=== PATIENT | female | born 1955 | race Hispanic/Latino ===

== ENCOUNTER 2019-05-26 18:31 | Emergency (ER) | payer OTHER ==
--- OUTSIDE RECORDS SUMMARY | 2019-05-26 18:33 | XMS REPORT ---
:1955 Author Organization eClinicalWorks Care Team Providers Name Role Phone Stephon Morrison Provider Role Unavailable Allergies No Known Allergies Problems Problem Type Condition Code Onset Dates Condition Status Problem Left ankle swelling M25.472 Active Problem High cholesterol E78.00 Active Problem Swelling R60.9 Active Problem Hypertension, unspecified type I10 Active Problem Acute left ankle pain M25.572 Active Problem Hyperlipidemia, unspecified E78.5 Active hyperlipidemia type Problem Left foot pain M79.672 Active Problem Paresthesias R20.2 Active Problem Charcot foot due to diabetes E11.610 Active mellitus Problem Abnormal vision of both eyes H53.9 Active Problem Diabetes E11.9 Active Problem Swelling of left foot M79.89 Active Problem Uncontrolled type 2 diabetes E11.65 Active mellitus with hyperglycemia Medications No Known Medications Results No Known Results Summary Purpose eClinicalWorks Submission
--- OUTSIDE RECORDS SUMMARY | 2019-05-26 18:33 | XMS REPORT ---
:1955 Author Organization e[employer]Works Care Team Providers Name Role Phone Carmen Gallegos Provider Role Unavailable Allergies No Known Allergies Problems Problem Type Condition Code Onset Dates Condition Status Problem Swelling R60.9 Active Problem Diabetes E11.9 Active Problem High cholesterol E78.00 Active Problem Hypertension, unspecified type I10 Active Problem Acute left ankle pain M25.572 Active Problem Hyperlipidemia, unspecified E78.5 Active hyperlipidemia type Problem Left ankle swelling M25.472 Active Problem Charcot foot due to diabetes E11.610 Active mellitus Problem Left foot pain M79.672 Active Problem Osteoporosis without current M81.0 Active pathological fracture, unspecified osteoporosis type Problem Uncontrolled type 2 diabetes E11.65 Active mellitus with hyperglycemia Problem Abnormal vision of both eyes H53.9 Active Problem Paresthesias R20.2 Active Problem Swelling of left foot M79.89 Active Medications No Known Medications Results No Known Results Summary Purpose eClinicalWorks Submission
--- OUTSIDE RECORDS SUMMARY | 2019-05-26 18:33 | XMS REPORT ---
:1955 Author Organization eClinicalWorks Care Team Providers Name Role Phone Carmen Gallegos Provider Role Unavailable Allergies, Adverse Reactions, Alerts Substance Reaction Event Type N.K.D.A. Info Not Available Non Drug Allergy Problems Problem Type Condition Code Onset Dates Condition Status Problem Swelling R60.9 Active Problem Diabetes E11.9 Active Problem High cholesterol E78.00 Active Problem Charcot foot due to diabetes E11.610 Active mellitus Problem Left foot pain M79.672 Active Problem Osteoporosis without current M81.0 Active pathological fracture, unspecified osteoporosis type Problem Uncontrolled type 2 diabetes E11.65 Active mellitus with hyperglycemia Problem Abnormal vision of both eyes H53.9 Active Problem Paresthesias R20.2 Active Problem Swelling of left foot M79.89 Active Problem Hypertension, unspecified type I10 Active Problem Acute left ankle pain M25.572 Active Assessment Osteoporosis without current M81.0 Active pathological fracture, unspecified osteoporosis type Problem Hyperlipidemia, unspecified E78.5 Active hyperlipidemia type Problem Left ankle swelling M25.472 Active Medications Medication Code Code Instructions Start End Date Status Dosage System Date Novolin R [facility] 77160344841 100 UNIT/ML Nov 28, Active as Subcutaneous 2018 directed units with each meal (three times daily) BromSite [facility] [address]-58 Active not defined Insulin ND 0 32G x 5/32 1ml Nov 28Feb 20, Active Syringe Subcutaneous 2018 2019 DIRECTED Use three times daily with Novolin R as directed Pen Landis [facility] 91829102837 32G X 5 MM Nov 28, Active as Subcutaneous 2018 directed Use as directed with Lantus Solostar Pen Calcium + D [facility] 76[address]209 Active not defined Zinc [facility] [address] Active not defined [place] 3 [facility] [address] Active not defined Vitamin C [facility] [address]-61 Active not defined FreeStyle Lite [facility] 25909322481 - In Vitro Feb 01, Active as Test testing bs once 2019 directed daily Alendronate [facility] 93176878637 70 MG Orally Feb 06May Active 1 tablet Sodium Once per week 2018 30 minutes for bones before the first food, beverage or medicine of the day with plain water Blood Glucose NDC 0 as directed Nov 28, Active as Test Strip Test BS three 2018 directed times daily (DISPENSE BLOOD GLUCOSE TEST STRIPS OF RECORD) Lancets [facility] 00560826666 - as directed Nov 28, Active as Test BS 2018 directed times daily (dispense lancets of record) Lantus [facility] 28107040601 100 UNIT/ML Active as SoloStar Subcutaneous 30 directed units in evening Vitamin A NDC 0 Active not defined Durezol [facility] [address]-35 Active not defined Gentamicin ND 0 Active not defined Meloxicam [facility] 93174163585 7.5 MG Orally Nov 28, Apr 04, Active 1 tablet Once a day 2018 2019 as needed for pain Results No Known Results Summary Purpose eClinicalWorks Submission
--- OUTSIDE RECORDS SUMMARY | 2019-05-26 18:33 | XMS REPORT ---
[...] diabetes E11.65 Active mellitus with hyperglycemia Medications Medication Code Code Instructions Start End Status Dosage System Date Date Kashif Marie [facility] [id number] - In Vitro Feb 01, Active as directed Test testing bs once 2019 daily Results No Known Results Summary Purpose eClinicalWorks Submission
--- OUTSIDE RECORDS SUMMARY | 2019-05-26 18:34 | XMS REPORT ---
:1955 Author Organization eClinicalWorks Care Team Providers Name Role Phone Carmen Gallegos Provider Role Unavailable Allergies, Adverse Reactions, Alerts Substance Reaction Event Type N.K.D.A. Info Not Available Non Drug Allergy Problems Problem Type Condition Code Onset Dates Condition Status Problem High cholesterol E78.00 Active Problem Hyperlipidemia, unspecified E78.5 Active hyperlipidemia type Problem Acute left ankle pain M25.572 Active Problem Charcot foot due to diabetes E11.610 Active mellitus Assessment Osteoporosis without current M81.0 Active pathological fracture, unspecified osteoporosis type Problem Paresthesias R20.2 Active Problem Osteoporosis without current M81.0 Active pathological fracture, unspecified osteoporosis type Problem Mixed hyperlipidemia E78.2 Active Problem Anemia, unspecified type D64.9 Active Problem Left foot pain M79.672 Active Problem Swelling of left foot M79.89 Active Assessment Uncontrolled type 2 diabetes E11.65 Active mellitus with hyperglycemia Assessment Mixed hyperlipidemia E78.2 Active Assessment Anemia, unspecified type D64.9 Active Problem Diabetes E11.9 Active Problem Abnormal vision of both eyes H53.9 Active Problem Hypertension, unspecified type I10 Active Problem Uncontrolled type 2 diabetes E11.65 Active mellitus with hyperglycemia Problem Left ankle swelling M25.472 Active Problem Swelling R60.9 Active Medications Medication Code Code Instructions Start End Status Dosage System Date Date Vitamin C [facility] [address]-88 Active not defined Lancets [facility] 86371149817 - as directed Nov 28, Active as directed Test BS three 2018 (dispense times daily lancets of record) Crestor [facility] 53579958344 10 MG Orally Feb 27, Active 1 tablet Once a day in 2018 evening for high cholesterol Gentamicin NDC 0 Active not defined Insulin NDC 0 32G x 5/32 1ml Nov 28, Feb 20, Active DIRECTED Syringe Subcutaneous 2018 2019 Use three times daily with Novolin R as directed Alendronate ND 05350299427 70 MG Orally Feb 06, Nov 23, Active 1 tablet 30 Sodium Once per week 2018 2019 minutes for bones before the first food, beverage or medicine of the day with plain water Blood Glucose NDC 0 as directed Nov 28, Active as directed Test Strip Test BS three 2018 (DISPENSE times daily BLOOD GLUCOSE TEST STRIPS OF RECORD) Lantus [facility] 87741141424 100 UNIT/ML Active as directed SoloStar Subcutaneous 30 units in evening FreeStyle Lite [facility] 72877072230 - In Vitro Feb 01, Active as directed Test testing bs once 2019 daily BromSite [facility] [address]-39 Active not defined Vitamin A ND 0 Active not defined Pen [place] [facility] 69614165831 32G X 5 MM Nov 28, Active as directed Subcutaneous 2019 Use as directed with Lantus Solostar Pen Meloxicam [facility] 90219594023 7.5 MG Orally Nov 28, Apr 04, Active 1 tablet as Once a day 2018 2019 needed for pain Durezol [facility] [address]-47 Active not defined Novolin R [facility] 78845058655 100 UNIT/ML Nov 28, Active as directed Subcutaneous 12 2018 units with each meal (three times daily) Calcium + D [facility] [address] Active not defined [place] 3 [facility] [address] Active not defined Zinc [facility] [address] Active not defined Results No Known Results Summary Purpose eClinicalWorks Submission
--- OUTSIDE RECORDS SUMMARY | 2019-05-26 18:34 | XMS REPORT ---
:1955 Author Organization eClinicalWorks Care Team Providers Name Role Phone Stephon Morrison Provider Role Unavailable Allergies, Adverse Reactions, Alerts Substance Reaction Event Type N.K.D.A. Info Not Available Non Drug Allergy Problems Problem Type Condition Code Onset Dates Condition Status Problem High cholesterol E78.00 Active Problem Hyperlipidemia, unspecified E78.5 Active hyperlipidemia type Problem Acute left ankle pain M25.572 Active Problem Charcot foot due to diabetes E11.610 Active mellitus Problem Paresthesias R20.2 Active Problem Osteoporosis without current M81.0 Active pathological fracture, unspecified osteoporosis type Problem Mixed hyperlipidemia E78.2 Active Problem Anemia, unspecified type D64.9 Active Problem Left foot pain M79.672 Active Problem Swelling of left foot M79.89 Active Assessment Pain in joint, foot, left M25.572 Active Assessment Charcot foot due to diabetes E11.610 Active mellitus Problem Diabetes E11.9 Active Problem Abnormal vision of both eyes H53.9 Active Problem Hypertension, unspecified type I10 Active Problem Uncontrolled type 2 diabetes E11.65 Active mellitus with hyperglycemia Problem Left ankle swelling M25.472 Active Problem Swelling R60.9 Active Medications Medication Code Code Instructions Start End Status Dosage System Date Date Alendronate [facility] 68024663600 70 MG Orally Feb 06, Nov 23, Active 1 tablet 30 Sodium Once per week 2018 2019 minutes for bones before the first food, beverage or medicine of the day with plain water Calcium + D [facility] [address] Active not defined [place] 3 [facility] [address] Active not defined Gentamicin [facility] [address]-28 Active not defined Sulfate Vitamin C [facility] [address]-34 Active not defined Meloxicam ND 43000962027 7.5 MG Orally Nov 28, Apr 04, Active 1 tablet as Once a day 2018 2019 needed for pain BromSite [facility] [address]-07 Active not defined Lancets [facility] 13447169598 - as directed Nov 28, Active as directed Test BS three 2018 (dispense times daily lancets of record) Lantus [facility] 79422512237 100 UNIT/ML Active as directed SoloStar Subcutaneous 30 units in evening Novolin R [facility] 84666169944 100 UNIT/ML Nov 28, Active as directed Subcutaneous 12 2018 units with each meal (three times daily) Zinc [facility] [address]91-[address] Active not defined Vitamin A NDC 0 Active not defined Pen Arma [facility] 91000728498 32G X 5 MM Nov 28, Active as directed Subcutaneous 2018 Use as directed with Lantus Solostar Pen Crestor [facility] 91919242104 10 MG Orally Feb 27, Active 1 tablet Once a day in 2019 evening for high cholesterol Durezol [facility] [address]-74 Active not defined FreeStyle Lite [facility] 36847937080 - In Vitro Feb 01, Active as directed Test testing bs once 2019 daily Insulin NDC 0 32G x 5/32 1ml Nov 28, Feb 20, Active DIRECTED Syringe Subcutaneous 2018 2019 Use three times daily with Novolin R as directed Blood Glucose NDC 0 as directed Nov 28, Active as directed Test Strip Test BS three 2018 (DISPENSE times daily BLOOD GLUCOSE TEST STRIPS OF RECORD) Gentamicin NDC 0 Active not defined Results No Known Results Summary Purpose eClinicalWorks Submission
[2019-05-26] MEDS ORDERED: NA CHLORIDE 0.9% 1,000 ML ONE (19:12)
[2019-05-26] MEDS ORDERED: ONDANSETRON 4 MG/2 ML VIAL ONE (19:12)
[2019-05-26] MEDS ORDERED: CIPROFLOXACIN 400mg IV 400 MG/200 ML BAG IV ONE (19:12)
[2019-05-26] MEDS ORDERED: METRONIDAZOLE 500mg IVPB 500 MG/100 ML BAG IV ONE (19:12)
[2019-05-26] MEDS ORDERED: FAMOTIDINE 20 MG/2 ML VIAL IV ONE (19:12)
--- NOTE | 2019-05-26 19:24 | RAD REPORT ---
EXAM DESCRIPTION: RAD - Chest Single View - 05/26/2019 7:16 pm CLINICAL HISTORY: ABDOMINAL DISTENTION Chest pain. COMPARISON: CHEST SINGLE VIEW dated 10/04/2014; CHEST SINGLE VIEW dated 06/24/2013; CHEST SINGLE VIEW dated 06/04/2012 FINDINGS: Portable technique limits examination quality. The lungs are grossly clear. The heart is normal in size. No displaced fractures. IMPRESSION: No acute intrathoracic process suspected.
[2019-05-26 19:26] LABS: Urine Blood TRACE (NEG); Urine Glucose NEGATIVE (NEG); Urine Protein 3+ (NEG); Urine Specific Gravity >1.030 (1.005-1.030)
[2019-05-26 19:35] LABS: Absolute Lymphocytes (CBC) 0.8 K/uL (0.7-4.9); Basophils % 0.2 % (0-1.3); Hematocrit 37.9 % (36.0-45.0); Lymphocytes % 8.8 % (15.3-44.8); MPV 9.1 fL (7.6-11.3); RBC Red Blood Cell Count 4.03 M/uL (3.86-4.86)
[2019-05-26 19:37] LABS: Protime INR 0.96
[2019-05-26 19:55] LABS: ALT/SGPT 57 U/L (12-78); AST/SGOT 46 U/L (15-37); Albumin 3.5 g/dL (3.4-5.0); Alkaline Phosphatase 98 U/L (45-117); BUN Blood Urea Nitrogen 35 mg/dL (7-18); Bicarbonate 27 mmol/L (21-32); Bilirubin Direct 0.1 mg/dL (0-0.2); Bilirubin Total 0.5 mg/dL (0.2-1.0); Glucose Level 195 mg/dL (74-106); Lipase 116 U/L (73-393); NT PRO-BNP 146 pg/mL (<125); Potassium 3.9 mmol/L (3.5-5.1); Protein, Total 8.2 g/dL (6.4-8.2); Sodium Level 138 mmol/L (136-145); Troponin (Emerg Dept Use Only) < 0.02 ng/mL (0.0-0.045)
[2019-05-26 20:03] LABS: Blood Morphology Comment NOT SEEN (NOT SEEN); Platelet Estimate ADEQ; White Blood Cell Scan OK
--- NOTE | 2019-05-26 20:36 | RAD REPORT ---
EXAM DESCRIPTION: CTAbdomen Pelvis W Contrast - 05/26/2019 8:21 pm CLINICAL HISTORY: Abdominal pain. Abd pain;Pain COMPARISON: CT ABD PELVIS W CONTRAST dated 04/28/2013 TECHNIQUE: Biphasic CT imaging of the abdomen and pelvis was performed with 100 ml non-ionic IV cont rast. All CT scans are performed using dose optimization technique as appropriate and may include automated exposure control or mA/KV adjustment according to patient size. FINDINGS: The lung bases are clear.Cholecystectomy clips. The liver, spleen, pancreas, left adrenal gland and kidneys are within normal limits. 18 mm right adr enal mass is present, nonspecific but likely an adenoma. No bowel obstruction, free air, free fluid or abscess. Aortic atherosclerosis. The appendix is not id entified as a discrete structure, however, no secondary findings of appendicitis are identified. No evidence of significant lymphadenopathy. No suspicious bony findings. IMPRESSION: No acute intra-abdominal or pelvic finding.
--- NOTE | 2019-05-26 20:44 | ER ---
Nurse's Notes [facility] Name: Edda Mei Age: 63 yrs Sex: Female : 1955 Arrival Date: 05/26/2019 Time: 18:33 Bed 5 Private MD: Diagnosis: Gastroenteritis Presentation: 18:42 Chief complaint: Spouse and/or significant other states: vomiting and diarrhea all day iw today, also has upper abd pain and headache. Coronavirus screen: The patient has NOT traveled to [place] in the past 14 days. Proceed with normal triage procedures. Ebola Screen: Patient negative for fever greater than or equal to 101.5 degrees Fahrenheit, and additional compatible Ebola Virus Disease symptoms Patient denies exposure to infectious person. Patient denies travel to an Ebola-affected area in the 21 days before illness onset. No symptoms or risks identified at this time. Initial Sepsis Screen: Does the patient meet any 2 criteria? No. Patient's initial sepsis screen is negative. Does the patient have a suspected source of infection? No. Patient's initial sepsis screen is negative. Risk Assessment: Do you want to hurt yourself or someone else? Patient reports no desire to harm self or others. 18:42 Method Of Arrival: Ambulatory iw 18:42 Acuity: BIJU 3 iw 21:00 Onset of symptoms was April 2019. mg2 Historical: - Allergies: 18:43 No Known Allergies; iw - Home Meds: 18:43 Novolin N Sub-Q 40 unit daily [Active]; Novolin R Sub-Q 10 unit daily [Active]; iw - PMHx: 18:43 Diabetes - IDDM; iw - PSHx: 18:43 left foot; Cholecystectomy; iw - Immunization history:: Adult Immunizations not up to date. - Social history:: Smoking status: Patient denies any tobacco usage or history of. Screenin:25 Abuse screen: Denies threats or abuse. Denies injuries from another. Nutritional mg2 screening: No deficits noted. Tuberculosis screening: No symptoms or risk factors identified. Fall Risk IV access (20 points). Assessment: 19:24 General: Appears in no apparent distress. comfortable, Behavior is calm, cooperative. mg2 Pain: Complains of pain in abdomen. Neuro: Level of Consciousness is awake, alert, obeys commands, Oriented to person, place, time, situation. Cardiovascular: Capillary refill < 3 seconds Patient's skin is warm and dry. Respiratory: Airway is patent Respiratory effort is even, unlabored, Respiratory pattern is regular, symmetrical. GI: Abdomen is round Reports lower abdominal pain, upper abdominal pain, diarrhea, vomiting. : No signs and/or symptoms were reported regarding the genitourinary system. EENT: No signs and/or symptoms were reported regarding the EENT system. Derm: Skin is intact, is healthy with good turgor, Skin is pink, warm \T\ dry. normal. Musculoskeletal: Circulation, motion, and sensation intact. Capillary refill < 3 seconds. 20:26 Reassessment: patient in ct scan now. mg2 20:44 Reassessment: Patient appears in no apparent distress at this time. Patient and/or mg2 family updated on plan of care and expected duration. Pain level reassessed. Patient is alert, oriented x 3, equal unlabored respirations, skin warm/dry/pink. patient for dc after completing iv antibiotic. 21:46 Reassessment: Patient denies pain at this time. Patient states feeling better. mg2 Vital Signs: 18:42 BP 130 / 70; Pulse 91; Resp 16; Temp 98.4; Pulse Ox 96% on R/A; Weight 81.65 kg; Height iw 5 ft. 4 in. (162.56 cm); 20:46 Pulse 95; Resp 18; Pulse Ox 98% on R/A; mg2 20:46 BP 136 / 70; mg2 21:46 BP 157 / 79; Pulse 90; Resp 18; Temp 98; Pulse Ox 100% on R/A; mg2 18:42 Body Mass Index 30.90 (81.65 kg, 162.56 cm) iw ED Course: 18:33 Patient arrived in ED. cl3 18:43 Triage completed. iw 18:43 Arm band placed on. iw 18:44 Joe Sprague MD is Attending Physician. radha 18:59 Radiology exam delayed due to lab results not completed at this time. (BUN/Creatinine). bq 19:03 Carlos Bush, RN is Primary Nurse. mg2 19:13 XRAY Chest (1 view) In Process Unspecified. EDMS 19:24 No provider procedures requiring assistance completed. Inserted saline lock: 20 gauge mg2 in right antecubital area, using aseptic technique. Blood collected. 19:25 Patient has correct armband on for positive identification. personnel monitor on. Pulse mg2 ox on. NIBP on. Door closed. Warm blanket given. 19:42 Jese Cameron PA is PHCP. bushra 20:21 CT Abd/Pelvis - IV Contrast Only In Process Unspecified. EDMS 20:21 CT completed. Patient tolerated procedure well. Patient moved back from CT. bq 21:46 IV discontinued, intact, bleeding controlled, No redness/swelling at site. Pressure mg2 dressing applied. Administered Medications: 19:23 Drug: NS 0.9% 1000 ml Route: IV; Rate: 1 bolus; Site: right antecubital; mg2 21:38 Follow up: Response: No adverse reaction; IV Status: Completed infusion; IV Intake: mg2 1000ml 19:23 Drug: Pepcid 20 mg Route: IVP; Site: right antecubital; mg2 20:45 Follow up: Response: No adverse reaction mg2 19:23 Drug: Zofran (Ondansetron) 4 mg Route: IVP; Site: right antecubital; mg2 20:45 Follow up: Response: No adverse reaction mg2 19:24 Drug: Flagyl 500 mg Volume: 100 ml; Route: IVPB; Rate: 200 ml/hr; Infused Over: 30 mg2 mins; Site: right antecubital; 20:45 Follow up: IV Status: Completed infusion mg2 20:40 Drug: Cipro 400 mg Volume: 200 ml; Route: IVPB; Infused Over: 60 mins; Site: right mg2 antecubital; 21:38 Follow up: Response: No adverse reaction; IV Status: Completed infusion mg2 20:56 Drug: Tylenol 1000 mg Route: PO; mg2 20:59 Follow up: Response: No adverse reaction; Medication administered at discharge. mg2 Intake: 21:38 IV: 1000ml; Total: 1000ml. mg2 Outcome: 20:43 Discharge ordered by . [email or web address] 21:46 Discharged to home via wheelchair, with family. mg2 21:46 Condition: good 21:46 Discharge instructions given to patient, family, Instructed on discharge instructions, follow up and referral plans. medication usage, Demonstrated understanding of instructions, follow-up care, medications, Prescriptions given X 4. 21:47 Patient left the ED. mg2 Signatures: Dispatcher [employer] EDAR Joe Sprague MD MD cha Quilty, Betty bq Williams, Irene, RN RN iw Jese Cameron PA PA [id number] Carlos Bush, RN RN mg2 Hannah Mueller cl3
--- NOTE | 2019-05-26 20:44 | EDPHYS ---
Physician Documentation [facility] Name: Edda Mei Age: 63 yrs Sex: Female : 1955 Arrival Date: 05/26/2019 Time: 18:33 Bed 5 Private MD: ELIANA Physician Joe Sprague HPI: 18:55 This 63 yrs old Female presents to ER via Ambulatory with complaints of radha Vomiting/Diarrhea. 18:55 The patient presents to the emergency department with nausea, vomiting, diarrhea, that radha is continuous. Onset: The symptoms/episode began/occurred 1 day(s) ago. Possible causes: unknown. The symptoms are aggravated by nothing. The symptoms are alleviated by remaining still. Associated signs and symptoms: Pertinent positives: abdominal pain, diarrhea, nausea, vomiting. Severity of symptoms: At their worst the symptoms were mild moderate in the emergency department the symptoms are unchanged. The patient has experienced similar episodes in the past, several times. Historical: - Allergies: 18:43 No Known Allergies; iw - Home Meds: 18:43 Novolin N Sub-Q 40 unit daily [Active]; Novolin R Sub-Q 10 unit daily [Active]; iw - PMHx: 18:43 Diabetes - IDDM; iw - PSHx: 18:43 left foot; Cholecystectomy; iw - Immunization history:: Adult Immunizations not up to date. - Social history:: Smoking status: Patient denies any tobacco usage or history of. ROS: 18:57 Constitutional: Negative for fever, chills, and weight loss, Eyes: Negative for injury, radha pain, redness, and discharge, ENT: Negative for injury, pain, and discharge, Neck: Negative for injury, pain, and swelling, Cardiovascular: Negative for chest pain, palpitations, and edema, Respiratory: Negative for shortness of breath, cough, wheezing, and pleuritic chest pain, Back: Negative for injury and pain, : Negative for injury, bleeding, discharge, and swelling, MS/Extremity: Negative for injury and deformity, Skin: Negative for injury, rash, and discoloration, Neuro: Negative for headache, weakness, numbness, tingling, and seizure, Psych: Negative for depression, anxiety, suicide ideation, homicidal ideation, and hallucinations, Allergy/Immunology: Negative for hives, rash, and allergies, Endocrine: Negative for neck swelling, polydipsia, polyuria, polyphagia, and marked weight changes, Hematologic/Lymphatic: Negative for swollen nodes, abnormal bleeding, and unusual bruising. 18:57 Abdomen/GI: Positive for abdominal pain, nausea and vomiting, diarrhea, abdominal cramps, of the right upper quadrant, left upper quadrant, right lower quadrant and left lower quadrant. 18:57 Skin: Positive for pallor. Exam: 18:58 Constitutional: This is a well developed, well nourished patient who is awake, alert, radha and in no acute distress. Head/Face: Normocephalic, atraumatic. Eyes: Pupils equal round and reactive to light, extra-ocular motions intact. Lids and lashes normal. Conjunctiva and sclera are non-icteric and not injected. Cornea within normal limits. Periorbital areas with no swelling, redness, or edema. ENT: Nares patent. No nasal discharge, no septal abnormalities noted. Tympanic membranes are normal and external auditory canals are clear. Oropharynx with no redness, swelling, or masses, exudates, or evidence of obstruction, uvula midline. Mucous membranes moist. Neck: Trachea midline, no thyromegaly or masses palpated, and no cervical lymphadenopathy. Supple, full range of motion without nuchal rigidity, or vertebral point tenderness. No Meningismus. Chest/axilla: Normal chest wall appearance and motion. Nontender with no deformity. No lesions are appreciated. Cardiovascular: Regular rate and rhythm with a normal S1 and S2. No gallops, murmurs, or rubs. Normal PMI, no JVD. No pulse deficits. Respiratory: Lungs have equal breath sounds bilaterally, clear to auscultation and percussion. No rales, rhonchi or wheezes noted. No increased work of breathing, no retractions or nasal flaring. Back: No spinal tenderness. No costovertebral tenderness. Full range of motion. Female : Normal external genitalia. MS/ Extremity: Pulses equal, no cyanosis. Neurovascular intact. Full, normal range of motion. Neuro: Awake and alert, GCS 15, oriented to person, place, time, and situation. Cranial nerves II-XII grossly intact. Motor strength 5/5 in all extremities. Sensory grossly intact. Cerebellar exam normal. Normal gait. Psych: Awake, alert, with orientation to person, place and time. Behavior, mood, and affect are within normal limits. 18:58 Abdomen/GI: Inspection: distension, Bowel sounds: normal, Palpation: mild abdominal tenderness, in the left upper quadrant and left lower quadrant, Liver: no appreciated palpable abnormalities, Hernia: not appreciated. 19:02 Abdomen/GI: Rectal exam: is unremarkable, rectal tone normal, Stool: normal, radha hemorrhoid(s), are not appreciated, mass, is not appreciated, swelling, is not appreciated, tenderness, is not appreciated, fecal impaction, is not appreciated, the exam is chaperoned by a family member. Vital Signs: 18:42 BP 130 / 70; Pulse 91; Resp 16; Temp 98.4; Pulse Ox 96% on R/A; Weight 81.65 kg; Height iw 5 ft. 4 in. (162.56 cm); 20:46 Pulse 95; Resp 18; Pulse Ox 98% on R/A; mg2 20:46 BP 136 / 70; mg2 21:46 BP 157 / 79; Pulse 90; Resp 18; Temp 98; Pulse Ox 100% on R/A; mg2 18:42 Body Mass Index 30.90 (81.65 kg, 162.56 cm) iw MDM: 18:44 Patient medically screened. [facility] 18:58 Data reviewed: vital signs, nurses notes, lab test result(s), EKG, radiologic studies, [facility] CT scan, plain films. 19:53 Data interpreted: Pulse oximetry: on room air is 96 %. Interpretation: normal. jr8 Counseling: I had a detailed discussion with the patient and/or guardian regarding: the historical points, exam findings, and any diagnostic results supporting the discharge/admit diagnosis, lab results, radiology results. 20:42 Counseling: I had a detailed discussion with the patient and/or guardian regarding: the jr8 need for outpatient follow up, a family practitioner, to return to the emergency department if symptoms worsen or persist or if there are any questions or concerns that arise at home. Response to treatment: the patient's symptoms have markedly improved after treatment, patient is well hydrated. 18:53 Order name: Basic Metabolic Panel; Complete Time: 20:02 [facility] 18:53 Order name: CBC with Diff; Complete Time: 20:05 [facility] 18:53 Order name: LFT's; Complete Time: 20:02 [facility] 18:53 Order name: Magnesium; Complete Time: 20:02 [facility] 18:53 Order name: NT PRO-BNP; Complete Time: 20:02 [facility] 18:53 Order name: PT-INR; Complete Time: 19:43 [facility] 18:53 Order name: Troponin (emerg Dept Use Only); Complete Time: 20:02 [facility] 18:53 Order name: XRAY Chest (1 view); Complete Time: 19:32 [facility] 18:53 Order name: Lipase; Complete Time: 20:02 [facility] 18:53 Order name: Urine Culture [facility] 18:53 Order name: Stool Culture [facility] 18:53 Order name: Fecal Leukocyte Stain [facility] 19:14 Order name: Urine Dipstick--Ancillary (enter results); Complete Time: 19:32 ar5 20:03 Order name: CBC Smear Scan; Complete Time: 20:05 EDMS 18:53 Order name: EKG; Complete Time: 18:55 [facility] 18:53 Order name: Cardiac monitoring; Complete Time: 19:24 [facility] 18:53 Order name: EKG - Nurse/Tech; Complete Time: 19:24 [facility] 18:53 Order name: IV Saline Lock; Complete Time: 19:24 [facility] 18:53 Order name: Labs collected and sent; Complete Time: 19:24 [facility] 18:53 Order name: O2 Per Protocol; Complete Time: 19:24 [facility] 18:53 Order name: O2 Sat Monitoring; Complete Time: 19:26 [facility] 18:53 Order name: Urine Dipstick-Ancillary (obtain specimen); Complete Time: 19:26 [facility] 18:53 Order name: CT Abd/Pelvis - IV Contrast Only; Complete Time: 20:42 [facility] Administered Medications: 19:23 Drug: NS 0.9% 1000 ml Route: IV; Rate: 1 bolus; Site: right antecubital; mg2 21:38 Follow up: Response: No adverse reaction; IV Status: Completed infusion; IV Intake: mg2 1000ml 19:23 Drug: Pepcid 20 mg Route: IVP; Site: right antecubital; mg2 20:45 Follow up: Response: No adverse reaction mg2 19:23 Drug: Zofran (Ondansetron) 4 mg Route: IVP; Site: right antecubital; mg2 20:45 Follow up: Response: No adverse reaction mg2 19:24 Drug: Flagyl 500 mg Volume: 100 ml; Route: IVPB; Rate: 200 ml/hr; Infused Over: 30 mg2 mins; Site: right antecubital; 20:45 Follow up: IV Status: Completed infusion mg2 20:40 Drug: Cipro 400 mg Volume: 200 ml; Route: IVPB; Infused Over: 60 mins; Site: right mg2 antecubital; 21:38 Follow up: Response: No adverse reaction; IV Status: Completed infusion mg2 20:56 Drug: Tylenol 1000 mg Route: PO; mg2 20:59 Follow up: Response: No adverse reaction; Medication administered at discharge. mg2 Disposition: 05/26 18:06 Co-signature as Attending Physician, Joe Sprague MD I agree with the assessment and radha plan of care. Disposition: 05/26/19 20:43 Discharged to Home. Impression: Gastroenteritis. - Condition is Stable. - Discharge Instructions: Viral Gastroenteritis, Adult. - Prescriptions for Bentyl 20 mg Oral Tablet - take 1 tablet by ORAL route every 6 hours As needed; 20 tablet. Cipro 500 mg Oral Tablet - take 1 tablet by ORAL route every 12 hours for 10 days; 20 tablet. Flagyl 500 mg Oral Tablet - take 1 tablet by ORAL route every 6 hours for 10 days; 40 tablet. Zofran 4 mg Oral Tablet - take 1 tablet by ORAL route every 12 hours As needed; 20 tablet. - Medication Reconciliation Form, Thank You Letter, Antibiotic Education, Prescription Opioid Use form. - Follow up: Private Physician; When: 2 - 3 days; Reason: Recheck today's complaints, Continuance of care, Re-evaluation by your physician. - Problem is new. - Symptoms have improved. Signatures: Dispatcher [employer] Joe Johansen MD MD cha Williams, Irene, RN RN Jese Cameron PA PA jr8 Gardose, Michele, RN RN mg2 Corrections: (The following items were deleted from the chart) 21:47 20:43 05/26/2019 20:43 Discharged to Home. Impression: Gastroenteritis. Condition is mg2 Stable. Forms are Medication Reconciliation Form, Thank You Letter, Antibiotic Education, Prescription Opioid Use. Follow up: Private Physician; When: 2 - 3 days; Reason: Recheck today's complaints, Continuance of care, Re-evaluation by your physician. Problem is new. Symptoms have improved. jr8
[2019-05-26] MEDS ORDERED: ACETAMINOPHEN 500 MG TAB ONE (20:58)
[2019-05-26 22:10] VITALS: BP 157/79; TEMP 98; O2SAT 100
--- NOTE | 2019-05-28 15:38 | EKG ---
Test Date: 2019-05-26 Test Time: 19:20:28 Securities Sales Associate: JUAN MEASUREMENT RESULTS: Intervals: Rate: 93 VA: 146 QRSD: 72 QT: 352 QTc: 437 Dupree: P: 40 VA: 146 QRS: 29 T: 72 INTERPRETIVE STATEMENTS: Normal sinus rhythm Normal ECG Compared to ECG 10/04/2014 17:14:00 No significant changes Electronically Signed On 05-28-19 15:37:09 ACQUISITION EDITOR by Naga Yap
== END 2019-05-26 21:47 | disposition home or self-care (01) ==
LOC: ER 18:31
DX: K52.9 Noninfective gastroenteritis and colitis, unspecified (principal); E11.9 Type 2 diabetes mellitus without complications; Z79.4 Long term (current) use of insulin
CPT/HCPCS: 96365; 96368; 93005; 87088; 87045; 85025; 87086; 80048; 36415; 83735; 89055; 85610; 80076; 87046; 81003; 84484; 83690; 83880; 74177; 71045; 96375; 99285; Q9967; J7030; J2405; J0744

== ENCOUNTER 2021-01-24 10:16 | Emergency (ER) | payer OTHER ==
[2021-01-24] MEDS ORDERED: ONDANSETRON 4 MG (ODT) TAB ONE (11:25)
[2021-01-24] MEDS ORDERED: MORPHINE 4 MG/ML SYR ONE (11:25)
[2021-01-24] MEDS ORDERED: ACETAMINOPHEN 500 MG TAB ONE (11:30)
[2021-01-24] MEDS ORDERED: HYDROCODONE/APAP 5/325 MG TAB ONE (11:33)
--- NOTE | 2021-01-24 11:33 | RAD REPORT ---
EXAM DESCRIPTION: CT - Stone Protocol - 01/24/2021 11:15 am CLINICAL HISTORY: Abdominal pain. COMPARISON: 2019 TECHNIQUE: Computed axial tomography of the abdomen pelvis was obtained without oral or IV contrast. Lack of IV and oral contrast limits evaluation of solid organs, bowel, and vessels. Coronal reformat celia images were obtained and reviewed. All CT scans are performed using dose optimization technique as appropriate and may include automated exposure control or mA/KV adjustment according to patient size. FINDINGS: A renal calculus is not seen. An ureteral calculus is not noted. A bladder calculus is not present. The liver, spleen, pancreas and left adrenal gland grossly normal. Small right adrenal adenoma. Cholecystectomy. Small umbilical hernia spondylosis L5-S1 Vascular calcifications. No hematoma seen There is no evidence of diverticulitis. The appendix appears normal IMPRESSION: Negative for a genitourinary calculus
--- NOTE | 2021-01-24 11:59 | EDPHYS ---
Physician Documentation [facility] Name: Edda Mei Age: 65 yrs Sex: Female : 1955 Arrival Date: 01/24/2021 Time: 10:19 Bed 14 Private MD: ED Physician Lon Calhoun HPI: 01/24 11:46 This 65 yrs old Female presents to ER via Wheelchair with complaints of Fall jmm Injury. 11:46 Details of fall: The patient fell from an upright position. Onset: The symptoms/episode jmm began/occurred acutely, yesterday. Associated injuries: The patient sustained injury to the low back. It is unknown whether or not the patient has had similar symptoms in the past. Historical: - Allergies: 10:25 No Known Allergies; aa5 - PMHx: 10:25 Diabetes - IDDM; Hypertensive disorder; Hypercholesterolemia; aa5 - PSHx: 10:26 Right foot; Cholecystectomy; section; aa5 - Immunization history:: Client reports receiving the 2nd dose of the Covid vaccine. - Social history:: Smoking status: Patient denies any tobacco usage or history of. ROS: 11:46 Constitutional: Negative for fever, chills, and weight loss, Cardiovascular: Negative jmm for chest pain, palpitations, and edema, Respiratory: Negative for shortness of breath, cough, wheezing, and pleuritic chest pain. 11:46 Back: Positive for pain with movement. 11:46 MS/extremity: Positive for pain. 11:46 All other systems are negative. Exam: 11:46 Constitutional: This is a well developed, well nourished patient who is awake, alert, jmm and in no acute distress. Head/Face: atraumatic. Eyes: EOMI, no conjunctival erythema appreciated ENT: Moist Mucus Membranes Neck: Trachea midline, Supple Chest/axilla: Normal chest wall appearance and motion. Cardiovascular: Regular rate and rhythm. No edema appreciated Respiratory: Normal respirations, no respiratory distress appreciated Abdomen/GI: Non distended, soft 11:46 MS/ Extremity: Moves all extremities, no obvious deformities appreciated, no edema noted to the lower extremities Neuro: Awake and alert, normal gait Psych: Behavior is normal, Mood is normal, Patient is cooperative and pleasant 11:46 Back: pain, that is mild, of the left low back and right low back. Vital Signs: 10:27 BP 104 / 48; Pulse 72; Resp 18 S; Temp 97.7(TE); Pulse Ox 97% on R/A; Weight 76.2 kg aa5 (R); Height 5 ft. 4 in. (162.56 cm) (R); 12:31 BP 132 / 66; Pulse 95; Resp 17; Pulse Ox 95% on R/A; jt3 10:27 Body Mass Index 28.84 (76.20 kg, 162.56 cm) aa5 MDM: 10:51 Patient medically screened. [facility] 11:48 Data reviewed: vital signs, nurses notes. Counseling: I had a detailed discussion with jamie the patient and/or guardian regarding: the historical points, exam findings, and any diagnostic results supporting the discharge/admit diagnosis, radiology results, the need for outpatient follow up, to return to the emergency department if symptoms worsen or persist or if there are any questions or concerns that arise at home. ED course: Patient is alert and non toxic in appearance in the ED. I do not suspect cord compression or cauda equina. Patient is advised to follow up with pcp and otherwise given strict return precautions. Patient understood and agrees with the plan of care. . 01/24 10:52 Order name: CT Stone Protocol; Complete Time: 11:[address] [facility] Administered Medications: 11:08 Not Given (Patient Refused): morphine 4 mg IM once; RASS on ADMIN: Combtv4, Very jt3 Agttd3, Agttd2, Rstlss1, AlertClm0, Drwsy-1, Lt Sdtn-2, Mod Sdtn-3, Dp Sdtn-4, UnArsble-5 11:08 Not Given (Patient Refused): Ondansetron 4 mg PO once jt3 11:08 Drug: HYDROcodone-acetaminophen 5 mg-325 mg 1 tabs Route: PO; jt3 Disposition Summary: 01/24/21 11:59 Discharge Ordered Location: Home coty Condition: Stable jamie Diagnosis - Low back pain coty Followup: jamie - With: Private Physician - When: 2 - 3 days - Reason: Recheck today's complaints, Continuance of care, Re-evaluation by your physician Discharge Instructions: - Discharge Summary Sheet coty - Acute Back Pain, Adult cotym Forms: - Medication Reconciliation Form [facility] - Thank You Letter jamie - Antibiotic Education coty - Prescription Opioid Use [facility] Prescriptions: - orphenadrine citrate 100 mg Oral Tablet Sustained Release - take 1 tablet by ORAL route 2 times per day As needed; 20 tablet; Refills: 0, jamie Product Selection Permitted Addendum: 01/26/2021 23:04 Co-signature as Attending Physician, Lon Calhoun MD. m a2 Signatures: Dispatcher [employer] EDPreston Cornejo PA PA jmm Calderon, Audri, RN RN aa5 Lon Calhoun MD MD ma2 Scott Hamm RN RN jt3
--- NOTE | 2021-01-24 11:59 | ER ---
Nurse's Notes [facility] Name: Edda Mei Age: 65 yrs Sex: Female : 1955 Arrival Date: 01/24/2021 Time: 10:19 Bed 14 Private MD: Diagnosis: Low back pain Presentation: 01/24 10:27 Chief complaint: Patient states: "I got a cramp in my leg and I fell around 3 am onto aa5 my butt". Pt c/o low back pain and buttocks pain. Denies head injury, denies LOC. Coronavirus screen: At this time, the client does not indicate any symptoms associated with coronavirus-19. Ebola Screen: No symptoms or risks identified at this time. Initial Sepsis Screen: Does the patient meet any 2 criteria? No. Patient's initial sepsis screen is negative. Does the patient have a suspected source of infection? No. Patient's initial sepsis screen is negative. Risk Assessment: Do you want to hurt yourself or someone else? Patient reports no desire to harm self or others. Onset of symptoms was January 24, 2021. 10:27 Acuity: BIJU 3 aa5 10:27 Method Of Arrival: Wheelchair aa5 Historical: - Allergies: 10:25 No Known Allergies; aa5 - PMHx: 10:25 Diabetes - IDDM; Hypertensive disorder; Hypercholesterolemia; aa5 - PSHx: 10:26 Right foot; Cholecystectomy; section; aa5 - Immunization history:: Client reports receiving the 2nd dose of the Covid vaccine. - Social history:: Smoking status: Patient denies any tobacco usage or history of. Screenin:40 Abuse screen: Denies threats or abuse. Denies injuries from another. Nutritional jt3 screening: No deficits noted. Tuberculosis screening: No symptoms or risk factors identified. Fall Risk Fall in past 12 months (25 points). Assessment: 10:40 General: Appears uncomfortable, Behavior is calm, cooperative. Pain: Complains of pain jt3 in buttocks Pain does not radiate. Pain currently is 7 out of 10 on a pain scale. Quality of pain is described as throbbing, Pain began Fall occurred at 3am this morning due to cramping when the patient was trying to get out of bed. Musculoskeletal: Reports pain in buttocks Pt. denies numbness/tingling. Pt. denies loss of bowel or bladder function. Alert and oriented x4. Vital Signs: 10:27 BP 104 / 48; Pulse 72; Resp 18 S; Temp 97.7(TE); Pulse Ox 97% on R/A; Weight 76.2 kg aa5 (R); Height 5 ft. 4 in. (162.56 cm) (R); 12:31 BP 132 / 66; Pulse 95; Resp 17; Pulse Ox 95% on R/A; jt3 10:27 Body Mass Index 28.84 (76.20 kg, 162.56 cm) aa ED Course: 10:19 Patient arrived in ED. as 10:25 Arm band placed on. aa5 10:28 Triage completed. aa5 10:29 Scott Hamm, RN is Primary Nurse. jt3 10:30 Preston Spencer PA is PHCP. [facility] 10:30 Lon Calhoun MD is Attending Physician. m 10:40 Patient has correct armband on for positive identification. Bed in low position. Call jt3 light in reach. Side rails up X2. 10:40 No provider procedures requiring assistance completed. jt3 11:15 CT Stone Protocol In Process Unspecified. EDMS Administered Medications: 11:08 Not Given (Patient Refused): morphine 4 mg IM once; RASS on ADMIN: Combtv4, Very jt3 Agttd3, Agttd2, Rstlss1, AlertClm0, Drwsy-1, Lt Sdtn-2, Mod Sdtn-3, Dp Sdtn-4, UnArsble-5 11:08 Not Given (Patient Refused): Ondansetron 4 mg PO once jt3 11:08 Drug: HYDROcodone-acetaminophen 5 mg-325 mg 1 tabs Route: PO; jt3 Outcome: 11:59 Discharge ordered by . cotym 12:34 Discharged to home via wheelchair. jt3 12:34 Condition: improved 12:34 Discharge instructions given to patient, family. 12:46 Patient left the ED. jt3 Signatures: Dispatcher [employer] EDMS Preston Spencer PA PA jmm Martinez, Amelia as Calderon, Audri RN RN aa Scott Hamm RN RN jt3
[2021-01-24 12:52] VITALS: TEMP 97.7
[2021-01-24 12:54] VITALS: BP 132/66; O2SAT 95
== END 2021-01-24 12:46 | disposition home or self-care (01) ==
LOC: EDBD 10:16 → ER 10:16
DX: M54.50 Low back pain, unspecified (principal); W19.XXXA Unspecified fall, initial encounter; I10 Essential (primary) hypertension; E11.9 Type 2 diabetes mellitus without complications
CPT/HCPCS: 74176; 76377; 99283

== ENCOUNTER 2023-09-24 16:23 | Emergency (ER) | payer OTHER ==
[2023-09-24] MEDS ORDERED: NA CHLORIDE 0.9% 1,000 ML ONE (17:17)
[2023-09-24 17:38] LABS: Absolute Eosinophils 0.2 K/uL (0-0.5); Absolute Lymphocytes (CBC) 1.9 K/uL (0.7-4.9); Absolute Monocytes 1.2 K/uL (0.1-1.3); Absolute Neutrophil 8.6 K/uL (1.8-8.0); Basophils % 0.2 % (0-1.3); Eosinophils % 1.7 % (0-4.4); Hematocrit 33.1 % (36.0-45.0); Lymphocytes % 16.1 % (15.3-44.8); MCH 30.4 pg (27.0-35.0); MCHC 33.1 g/dL (32.0-36.0); MCV 91.8 fL (80-100); MPV 7.3 fL (7.6-11.3); Monocytes % 9.7 % (3.3-12.3); Neutrophils % 72.3 % (41.7-73.7); Platelets 572 thou/uL (152-406); RBC Red Blood Cell Count 3.61 M/uL (3.86-4.86); Red Cell Distribution Width 15.4 % (12.1-15.2)
[2023-09-24 17:45] LABS: Anion Gap 8.3 mEq/L (5.0-15.0); Magnesium 2.1 mg/dL (1.6-2.4); Phosphorus 2.5 mg/dL (2.5-4.9); Potassium 4.3 mEq/L (3.5-5.1)
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
--- NOTE | 2023-09-24 18:03 | ER ---
Nurse's Notes [facility] Name: Edda Mei Age: 67 yrs Sex: Female : 1955 Arrival Date: 09/24/2023 Time: 16:23 Bed 5 Private MD: Diagnosis: Cutaneous abscess of buttock;Type 2 diabetes mellitus with hyperglycemia Presentation: 09/23 16:55 Chief complaint: Patient states: Boil to left buttock and wound to left foot onset 5 cm10 days ago. No fevers. Coronavirus screen: Client denies travel out of the [place] in the last 14 days. At this time, the client does not indicate any symptoms associated with coronavirus-19. Ebola Screen: Patient denies travel to an Ebola-affected area in the 21 days before illness onset. No symptoms or risks identified at this time. Initial Sepsis Screen: Does the patient meet any 2 criteria? No. Patient's initial sepsis screen is negative. Does the patient have a suspected source of infection? No. Patient's initial sepsis screen is negative. Risk Assessment: Do you want to hurt yourself or someone else? Patient reports no desire to harm self or others. Onset of symptoms was September 24, 2023. 16:55 Method Of Arrival: Ambulatory cm10 16:55 Acuity: BIJU 3 cm10 Triage Assessment: 16:56 General: Appears in no apparent distress. comfortable, Behavior is calm, cooperative. cm10 Neuro: No deficits noted. Level of Consciousness is awake, alert, obeys commands, Oriented to person, place, time, situation, Appropriate for age. Respiratory: No deficits noted. Airway is patent Respiratory effort is even, unlabored, Respiratory pattern is regular, symmetrical. 18:25 Injury Description: abscess. ko1 Historical: - Allergies: 16:56 No Known Allergies; cm10 - PMHx: 16:56 Diabetes - IDDM; Hypercholesterolemia; Hypertensive disorder; cm10 - PSHx: 16:56 section; Cholecystectomy; right foot; cm10 - Immunization history:: Adult Immunizations up to date. - Infectious Disease History:: Denies. - Social history:: Smoking status: Patient denies any tobacco usage or history of. Screenin:12 [facility] ED Fall Risk Assessment (Adult) History of falling in the last 3 months, ko1 including since admission No falls in past 3 months (0 pts) Confusion or Disorientation No (0 pts) Intoxicated or Sedated No (0 pts) Impaired Gait No (0 pts) Mobility Assist Device Used No (0 pt) Altered Elimination No (0 pt) Score/Fall Risk Level 0 - 2 = Low Risk Oriented to surroundings, Maintained a safe environment, Educated pt \T\ family on fall prevention, incl call for assistance when getting out of bed, Assessed \T\ reinforced patient's understanding of fall precautions, Provided non-skid footwear, Hourly rounding (assess needs \T\ fall precautionary measures) done. Abuse screen: Denies threats or abuse. Denies injuries from another. Nutritional screening: No deficits noted. Tuberculosis screening: No symptoms or risk factors identified. Assessment: 17:12 General: Appears in no apparent distress. Behavior is calm, cooperative, appropriate ko1 for age. Pain: Pain: Complains of pain in medial aspect of left toes and left gluteus mary lou. Neuro: No deficits noted. Cardiovascular: No deficits noted. Respiratory: No deficits noted. GI: No deficits noted. : No deficits noted. EENT: No deficits noted. Derm:. 17:12 Derm: Abscess located on left gluteus mary lou. Musculoskeletal: No deficits noted. ko1 Vital Signs: 16:55 BP 143 / 82; Pulse 84; Resp 18; Temp 98.6; Pulse Ox 96% ; Weight 74.84 kg; Height 5 ft. cm10 3 in. ; Pain 6/10; 18:00 BP 180 / 84; Pulse 78; Resp 16; Pulse Ox 98% on R/A; ko1 18:22 BP 178 / 78; Pulse 88; Resp 18; Pulse Ox 97% ; ko1 16:55 Body Mass Index 29.23 (74.84 kg, 160.02 cm) cm10 16:55 Pain Scale: Adult cm10 ED Course: 16:30 Patient arrived in ED. ts1 16:31 Linda Petersen PA-C is PHCP. sb4 16:31 Lorenzo Wolff MD is Attending Physician. sb4 16:56 Triage completed. cm10 16:57 Natalie Whyte, RADHA is Primary Nurse. ko1 16:57 Arm band placed on Patient placed in an exam room, on a stretcher. cm10 17:12 Patient has correct armband on for positive identification. Placed in gown. Bed in low ko1 position. Call light in reach. Side rails up X2. Provided Education on: call light. Pulse ox on. NIBP on. Door closed. Noise minimized. Lights dimmed. Warm blanket given. Pillow given. 17:20 Initial lab(s) drawn, by me, sent to lab. Inserted saline lock: 20 gauge in right ko1 antecubital area, using aseptic technique. Blood collected. 17:25 Phosphorus Sent. ko1 17:25 Magnesium Sent. ko1 17:25 BMP Sent. ko1 17:25 CBC with Diff Sent. ko1 18:00 Wound culture swab sent to lab. ko1 18:12 Wound Culture Sent. ko1 18:22 Assist provider with I \T\ D: of an abscess on left buttock Set up I\T\D tray. Performed by ko 1 Linda Petersen PA-C Culture sent to lab. Dressing with 4X4s, tape Patient tolerated well. 18:23 IV discontinued, intact, bleeding controlled, No redness/swelling at site. Pressure ko1 dressing applied. Administered Medications: 17:25 Drug: NS 0.9% IV 1000 ml IV at 1 bolus Per protocol; 1000 mL bolus Route: IV; Rate: 1 ko1 bolus; Site: right antecubital; 18:12 Follow up: Response: No adverse reaction; IV Status: Completed infusion; IV Intake: ko1 1000ml 18:10 Drug: Insulin Regular Human IVP 10 units IVP once {Co-Signature: [email or web address] (Elen Devine RN).} Route: IVP; Site: right antecubital; 18:23 Follow up: Response: No adverse reaction ko1 18:12 Drug: Rocephin IV 1 grams IV at calculated rate once; Given slow IV push per pharmacy ko1 instructions Route: IV; Rate: calculated rate; Site: right antecubital; 18:24 Follow up: Response: No adverse reaction; IV Status: Completed infusion; IV Intake: 81aban1 18:17 Drug: Trimethoprim-Sulfamethoxazole PO (160 mg-800 mg (DS) 1 tablet PO once Route: PO; ko1 18:24 Follow up: Response: No adverse reaction; Medication administered at discharge. ko1 Medication: 18:22 VIS not applicable for this client. ko1 Intake: 18:12 IV: 1000ml; Total: 1000ml. ko1 18:24 IV: 10ml; Total: 1010ml. ko1 Outcome: 18:03 Discharge ordered by . sb4 18:24 Discharged to home ambulatory, with family, ko1 18:24 Condition: stable 18:24 Discharge instructions given to patient, family, Instructed on discharge instructions, follow up and referral plans. medication usage, wound care, Demonstrated understanding of instructions, follow-up care, medications, wound care, Prescriptions given X 1, 18:25 Patient left the ED. ko1 Signatures: Natalie Whyte RN RN ko1 Linda Petersen, PA-C PA-C sb4 Emma Lynn PAS PAS ts1 Kathy Islas RN RN cm10 Elen Devine RN ld1 Corrections: (The following items were deleted from the chart) 17:44 17:12 Pain: ko1 ko1
[2023-09-24] MEDS ORDERED: CEFTRIAXONE 1000 MG/VIAL ONE (18:05)
[2023-09-24] MEDS ORDERED: INSULIN REGULAR (HUMAN) 100 UNIT/ML ONE (18:05)
[2023-09-24] MEDS ORDERED: SMZ./TMP. 800/160 MG TABLET ONE (18:16)
[2023-09-24 18:44] VITALS: BP 178/78; TEMP 98.6; O2SAT 97
== END 2023-09-24 18:25 | disposition home or self-care (01) ==
LOC: ER 16:23
PROC: 0H98XZZ Drainage of Buttock Skin, External Approach (ICD-10-PCS; principal; 2023-09-24)
DX: L02.31 Cutaneous abscess of buttock (principal); E11.65 Type 2 diabetes mellitus with hyperglycemia
CPT/HCPCS: 87070; 85025; 80048; 36415; 83735; 87205; 84100; 82947; 10060; J7030; J0696; 96361; 96374; 96375; 99285

== ENCOUNTER 2023-11-15 20:38 | Emergency (ER) | payer OTHER ==
[2023-11-15 22:16] LABS: Specific Gravity 1.015 (1.005-1.030); Sqamous Epithelial <5 /HPF (None Seen); Urine Bacteria None Seen /HPF (<20); Urine Bilirubin NEGATIVE (Negative); Urine Blood Negative (Negative); Urine Clarity Turbid (Clear); Urine Color Light-Yellow (Yellow); Urine Culture Reflex Order NOT NEEDED; Urine Glucose 3+ (Negative); Urine Ketones NEGATIVE (Negative); Urine Microscopic Reflex YN ORDER UMIC; Urine Mucus Slight /HPF (None Seen); Urine Nitrite NEGATIVE (Negative); Urine Protein 1+ (Negative); Urine RBC <5 /HPF (None Seen); Urine Urobilinogen Normal (Normal); Urine WBC <5 /HPF (<5); Urine pH 5.5 (5.0-7.0)
--- NOTE | 2023-11-15 22:48 | RAD REPORT ---
EXAM DESCRIPTION: CT - Spine Lumbar Wo Con - 11/15/2023 9:47 pm CLINICAL HISTORY: PAIN COMPARISON: Lumbar Spine 3 Views dated 06/16/2022 TECHNIQUE: Axial noncontrast CT imaging of the lumbar spine was performed with coronal and sagittal re-formatted images. All CT scans are performed using dose optimization technique as appropriate and may include automated exposure control or mA/KV adjustment according to patient size. FINDINGS: In keeping with prior nomenclature scheme, there are sequelae of vertebral augmentation at L1 with superior endplate compression deformity, incompletely visualized. Advanced disc height loss and endplate remodeling at L5-S1. Endplate irregularity with mild superior endplate compression deformity again seen at L3. No acute lumbar spine fracture seen. No aggressive m arrow pattern or malalignment. Paraspinal tissues are normal in thickness. No paraspinal abscess or hematoma seen. Intervertebral disc disease assessment is inherently limited by CT. Within these limitations, no high -grade canal stenosis suspected. Disc osteophyte complex at L5-S1 contributing to at least mild cent ral canal stenosis and moderate bilateral neural foraminal narrowing. Circumferential disc bulges at L2-3 and L3-4 contribute to mild degrees of neural foraminal narrowing. IMPRESSION: No acute fracture or subluxation of the lumbar spine. Superior endplate compression deformity at L3, and partially visualized superior endplate compression at L1, with sequelae of L1 vertebral augmentation, stable. Multilevel degenerative changes as above. Please consider MRI follow-up for assessment of disc diseas e and neural impingement if clinically desired.
[2023-11-15] MEDS ORDERED: NA CHLORIDE 0.9% 500 ML ONE (23:30)
[2023-11-15 23:41] LABS: Absolute Lymphocytes (CBC) 1.4 K/uL (0.7-4.9); Absolute Monocytes 0.3 K/uL (0.1-1.3); Absolute Neutrophil 5.5 K/uL (1.8-8.0); Basophils % 0.5 % (0-1.3); Eosinophils % 0.3 % (0-4.4); Hematocrit 33.5 % (36.0-45.0); Hemoglobin 11.3 g/dL (12.0-15.0); Lymphocytes % 18.9 % (15.3-44.8); MCH 32.2 pg (27.0-35.0); MCHC 33.9 g/dL (32.0-36.0); MPV 7.4 fL (7.6-11.3); Monocytes % 4.6 % (3.3-12.3); Neutrophils % 75.7 % (41.7-73.7); Nucleated Red Blood Cells % 0.1 % (0-0); Platelets 418 thou/uL (152-406); RBC Red Blood Cell Count 3.52 M/uL (3.86-4.86); Red Cell Distribution Width 15.6 % (12.1-15.2)
[2023-11-16 00:02] LABS: Albumin 3.6 g/dL (3.4-5.0); Albumin/Globulin Ratio 0.8 (1.1-1.8); Anion Gap 8.6 mEq/L (5.0-15.0); Bilirubin Total 0.5 mg/dL (0.2-1.0); Globulin 4.4 g/dL (2.3-3.5); Potassium 4.6 mEq/L (3.5-5.1)
[2023-11-16] MEDS ORDERED: ACETYLCYST 6,000 MG/30 ML VIAL ONE (00:41)
[2023-11-16] MEDS ORDERED: NA CHLORIDE 0.9% 1,000 ML ONE (00:48)
[2023-11-16 00:53] LABS: Magnesium 1.9 mg/dL (1.6-2.4)
[2023-11-16 00:58] LABS: PT Prothrombin Time 10.9 SECONDS (9.4-12.5); Protime INR 0.97
[2023-11-16] MEDS ORDERED: CEFTRIAXONE 1000 MG/VIAL ONE (02:53)
--- NOTE | 2023-11-16 03:09 | EDPHYS ---
Physician Documentation [facility] Name: Edda Mei Age: 68 yrs Sex: Female : 1955 Arrival Date: 11/15/2023 Time: 20:38 Bed 18 Private MD: ELIANA Physician Joe Sprague HPI: 11/15 00:11 This 68 yrs old Female presents to ER via Wheelchair with complaints of Back radha Pain. 00:11 The patient presents with pain that is acute. The symptoms are located in the right radha scapular area and right subscapular area. Onset: The symptoms/episode began/occurred 3 day(s) ago. The pain does not radiate. Associated signs and symptoms: The patient has no apparent associated signs or symptoms. Severity of symptoms: At their worst the symptoms were moderate, in the emergency department the symptoms are unchanged. The patient has not experienced similar symptoms in the past. Historical: - Allergies: 11/14 21:08 No Known Allergies; tm6 - PMHx: 21:08 Diabetes - IDDM; Hypercholesterolemia; Hypertensive disorder; tm6 - PSHx: 21:08 section; Cholecystectomy; right foot; cement on discs post fall (right foot); tm6 - Immunization history:: Client reports receiving the 2nd dose of the Covid vaccine. - Infectious Disease History:: Denies. - Social history:: Smoking status: Patient denies any tobacco usage or history of. Patient/guardian denies using alcohol. - Family history:: not pertinent. ROS: 11/15 00:11 Constitutional: Negative for fever, chills, and weight loss, Eyes: Negative for injury, radha pain, redness, and discharge, ENT: Negative for injury, pain, and discharge, Neck: Negative for injury, pain, and swelling, Cardiovascular: Negative for chest pain, palpitations, and edema, Abdomen/GI: Negative for abdominal pain, nausea, vomiting, diarrhea, and constipation, : Negative for injury, bleeding, discharge, and swelling, MS/Extremity: Negative for injury and deformity, Skin: Negative for injury, rash, and discoloration, Neuro: Negative for headache, weakness, numbness, tingling, and seizure, Respiratory: Positive for cough, shortness of breath, Exam: 00:11 Constitutional: This is a well developed, well nourished patient who is awake, alert, radha and in no acute distress. Head/Face: Normocephalic, atraumatic. Eyes: Pupils equal round and reactive to light, extra-ocular motions intact. Lids and lashes normal. Conjunctiva and sclera are non-icteric and not injected. Cornea within normal limits. Periorbital areas with no swelling, redness, or edema. ENT: Nares patent. No nasal discharge, no septal abnormalities noted. Tympanic membranes are normal and external auditory canals are clear. Oropharynx with no redness, swelling, or masses, exudates, or evidence of obstruction, uvula midline. Mucous membranes moist. Neck: Trachea midline, no thyromegaly or masses palpated, and no cervical lymphadenopathy. Supple, full range of motion without nuchal rigidity, or vertebral point tenderness. No Meningismus. Chest/axilla: Normal chest wall appearance and motion. Nontender with no deformity. No lesions are appreciated. Cardiovascular: Regular rate and rhythm with a normal S1 and S2. No gallops, murmurs, or rubs. Normal PMI, no JVD. No pulse deficits. Abdomen/GI: Soft, non-tender, with normal bowel sounds. No distension or tympany. No guarding or rebound. No evidence of tenderness throughout. Back: No spinal tenderness. No costovertebral tenderness. Full range of motion. Female : Normal external genitalia. Skin: Warm, dry with normal turgor. Normal color with no rashes, no lesions, and no evidence of cellulitis. MS/ Extremity: Pulses equal, no cyanosis. Neurovascular intact. Full, normal range of motion. Neuro: Awake and alert, GCS 15, oriented to person, place, time, and situation. Cranial nerves II-XII grossly intact. Motor strength 5/5 in all extremities. Sensory grossly intact. Cerebellar exam normal. Normal gait. Psych: Awake, alert, with orientation to person, place and time. Behavior, mood, and affect are within normal limits. 00:11 ECG was reviewed by the Attending Physician. 00:11 Respiratory: the patient does not display signs of respiratory distress, Respirations: no acute changes, Breath sounds: bronchial sounds, that are mild, are scattered, rhonchi, that are mild, are scattered, Respiratory rate: 20 00:44 ECG was reviewed by the Attending Physician. [facility] Vital Signs: 11/14 21:05 BP 187 / 83; Pulse 82; Resp 20; Temp 97.6(O); Pulse Ox 99% on R/A; Weight 73.48 kg; tm6 Height 5 ft. 4 in. ; Pain 10/10; 23:30 BP 138 / 46; Pulse 77; Resp 18; Pulse Ox 98% ; cp4 11/15 00:30 BP 161 / 64; Pulse 80; Resp 18; Pulse Ox 100% ; cp4 01:30 BP 137 / 59; Pulse 79; Resp 18; Pulse Ox 99% ; cp4 02:30 BP 160 / 62; Pulse 79; Resp 18; Pulse Ox 98% ; cp4 03:30 BP 132 / 62; Pulse 81; Resp 18; Pulse Ox 98% ; cp4 03:30 BP 136 / 66; Pulse 82; Resp 18; Pulse Ox 98% ; cp4 11/14 21:05 Body Mass Index 27.81 (73.48 kg, 162.56 cm) 6 11/14 21:05 Pain Scale: Adult [facility] MDM: 11/14 21:11 Patient medically screened. [facility] 11/14 21:16 Order name: CBC with Diff; Complete Time: 23:56 [facility] 11/14 21:16 Order name: Comprehensive Metabolic Panel; Complete Time: 00:06 [facility] 11/14 21:16 Order name: Urinalysis w/ reflexes; Complete Time: 23:56 [facility] 11/15 00:09 Order name: Magnesium; Complete Time: 01:21 [facility] 11/15 00:09 Order name: NT PRO-BNP; Complete Time: 01:21 [facility] 11/15 00:09 Order name: PT-INR; Complete Time: 01:21 [facility] 11/15 00:09 Order name: Troponin HS; Complete Time: 01:21 [facility] 11/15 02:07 Order name: Urine Culture [facility] 11/14 21:16 Order name: CT Lumbar Spine Wo Con; Complete Time: 23:56 [facility] 11/15 00:09 Order name: XRAY Chest (1 view) [facility] 11/15 00:11 Order name: CT Chest For PE Angio [facility] 11/15 00:47 Order name: CT Abd/Pelvis - IV Contrast Only [facility] 11/15 00:09 Order name: EKG; Complete Time: 00:10 [facility] 11/15 00:09 Order name: Cardiac monitoring; Complete Time: 00:14 [facility] 11/15 00:09 Order name: EKG - Nurse/Tech; Complete Time: 00:46 [facility] 11/15 00:09 Order name: IV Saline Lock; Complete Time: 00:14 [facility] 11/15 00:09 Order name: Labs collected and sent; Complete Time: 00: [facility] 11/15 00:09 Order name: O2 Per Protocol; Complete Time: 00:14 [facility] 11/15 00:09 Order name: O2 Sat Monitoring; Complete Time: 00: [facility] EC/21 00:44 Rate is 77 beats/min. Rhythm is regular. QRS [place] is Normal. CO interval is normal. QRS radha interval is normal. QT interval is normal. No Q waves. T waves are Normal. No ST changes noted. Clinical impression: Normal ECG and No evidence of ischemia. Interpreted by me. Reviewed by me. Administered Medications: 11/14 23:32 Drug: NS 0.9% IV 500 ml IV at bolus once Route: IV; Rate: bolus; Site: left antecubital;cp4 11/15 00:45 Drug: NS 0.9% IV 1000 ml IV at 125 ml/hr continuous Route: IV; Rate: 125 ml/hr; Site: [facility] left antecubital; 04:19 Follow up: Response: No adverse reaction; IV Status: Completed infusion cp4 00:46 Drug: Mucomyst - Acetylcysteine PO 600 mg PO once Route: PO; cp4 02:32 Follow up: Response: No adverse reaction cp4 03:11 Drug: Rocephin IV 1 grams IV at per protocol once; Given slow IV push per pharmacy cp4 instructions Route: IV; Rate: per protocol; Site: left antecubital; 03:12 Follow up: Response: No adverse reaction; IV Status: Completed infusion cp4 03:54 Drug: Insulin Regular Human IVP 5 units IVP once {Co-Signature: al5 (Jazmine Rodriguez RN).} Route: IVP; Site: left antecubital; 04:19 Follow up: Response: No adverse reaction cp4 03:54 Drug: Insulin Glargine Sub-Q 30 units Sub-Q once {Co-Signature: al5 (Jazmine Rodriguez RN).} Route: Sub-Q; Site: left upper arm; 04:19 Follow up: Response: No adverse reaction cp4 Disposition Summary: 11/16/23 03:08 Discharge Ordered Notes: Location: Home radha Problem: new radha Symptoms: have improved radha Condition: Stable radha Diagnosis - Strain of muscle and tendon of back wall of thorax radha - Type 1 diabetes mellitus with hyperglycemia radha - UTI/ Urinary tract infection, site not specified radha Followup: radha - With: Private Physician - When: 2 - 3 days - Reason: Recheck today's complaints, Continuance of care, Re-evaluation by your physician Followup: radha - With: Nuzhat Warner MD - When: 2 - 3 days - Reason: If symptoms return, Continuance of care Discharge Instructions: - Discharge Summary Sheet radha - Dysuria radha - Hyperglycemia radha - Urinary Tract Infection, Adult radha - Urinary Tract Infection, Adult, [id number] radha - Diabetes Mellitus and Nutrition, Adult radha - Aspirin and Your Heart [facility] Forms: - Medication Reconciliation Form radha - Antibiotic Education radha - Prescription Opioid Use radha - Patient Portal Instructions radha - Leadership Thank You Letter [facility] Prescriptions: - acetaminophen-codeine 300-30 mg Oral tablet - take 1 tablet ORAL route every 6 hours as needed for pain; 18 tablet; Refills: radha 0, Product Selection Permitted - ondansetron 4 mg Oral Tablet,disintegrating - take 1 tablet ORAL route every 6 hours; 20 tablet; Refills: 0, Product radha Selection Permitted - Cipro 250 mg Oral tablet - take 1 tablet ORAL route every 12 hours; 14 tablet; Refills: 0, Product radha Selection Permitted Signatures: Dispatcher [employer] EDJoe Mejia MD MD cha Potter, Christina cp4 Felecia Hall RN RN tm6 Jazmine Rodriguez RN al5 Corrections: (The following items were deleted from the chart) 11/14 21:16 21:16 CBC+H.LAB.BRZ ordered. EDMS EDMS 21:16 21:16 COMPREHENSIVE METABOLIC PANEL+C.LAB.BRZ ordered. EDMS EDMS 21:16 21:16 Urinalysis+U.LAB.BRZ ordered. EDMS EDMS 21:16 21:16 Spine Lumbar Wo Con+CT.RAD.BRZ ordered. EDMS EDMS 11/15 00:10 00:09 MAGNESIUM+C.LAB.BRZ ordered. EDMS EDMS 00:10 00:09 PROBNP+C.LAB.BRZ ordered. EDMS EDMS 00:10 00:09 PROTIME (+INR)+COAG.LAB.BRZ ordered. EDMS EDMS 00:10 00:09 Troponin High Sensitivity+C.LAB.BRZ ordered. EDMS EDMS 02:07 02:07 Urine Culture+BA.LAB.BRZ ordered. EDMS EDMS
--- NOTE | 2023-11-16 03:09 | ER ---
Nurse's Notes [facility] Name: Edda Mei Age: 68 yrs Sex: Female : 1955 Arrival Date: 11/15/2023 Time: 20:38 Bed 18 Private MD: Diagnosis: Strain of muscle and tendon of back wall of thorax;Type 1 diabetes mellitus with hyperglycemia;UTI/ Urinary tract infection, site not specified Presentation: 11/14 21:07 Chief complaint: Patient states: pain in back starting yesterday, worsening today. Fell tm6 4 years ago and broke 4 discs. Coronavirus screen: Vaccine status: Patient reports receiving the 2nd dose of the covid vaccine. Ebola Screen: Patient negative for fever greater than or equal to 101.5 degrees Fahrenheit, and additional compatible Ebola Virus Disease symptoms Patient denies exposure to infectious person. Patient denies travel to an Ebola-affected area in the 21 days before illness onset. No symptoms or risks identified at this time. Initial Sepsis Screen: Does the patient meet any 2 criteria? No. Patient's initial sepsis screen is negative. Does the patient have a suspected source of infection? No. Patient's initial sepsis screen is negative. Risk Assessment: Do you want to hurt yourself or someone else? Patient reports no desire to harm self or others. Onset of symptoms was November 14, 2023. 21:07 Method Of Arrival: Wheelchair tm6 21:07 Acuity: BIJU 3 tm6 Triage Assessment: 21:08 General: Appears uncomfortable, Behavior is calm, cooperative. Pain: Complains of pain tm6 in back Pain currently is 10 out of 10 on a pain scale. EENT: No signs and/or symptoms were reported regarding the EENT system. Neuro: Level of Consciousness is awake, alert, obeys commands, Oriented to person, place, time, situation. Cardiovascular: Patient's skin is warm and dry. Respiratory: Airway is patent Respiratory effort is even, unlabored, Respiratory pattern is regular, symmetrical. GI: No signs and/or symptoms were reported involving the gastrointestinal system. Abdomen is flat, non-distended. : No signs and/or symptoms were reported regarding the genitourinary system. Derm: No signs and/or symptoms reported regarding the dermatologic system. Musculoskeletal: Circulation, motion, and sensation intact. Reports pain in back since yesterday. Pain is 10 out of 10 on a pain scale. Historical: - Allergies: 21:08 No Known Allergies; tm6 - PMHx: 21:08 Diabetes - IDDM; Hypercholesterolemia; Hypertensive disorder; tm6 - PSHx: 21:08 section; Cholecystectomy; right foot; cement on discs post fall (right foot); tm6 - Immunization history:: Client reports receiving the 2nd dose of the Covid vaccine. - Infectious Disease History:: Denies. - Social history:: Smoking status: Patient denies any tobacco usage or history of. Patient/guardian denies using alcohol. - Family history:: not pertinent. Screenin:[address] [facility] ED Fall Risk Assessment (Adult) History of falling in the last 3 months, cp4 including since admission No falls in past 3 months (0 pts) Confusion or Disorientation No (0 pts) Intoxicated or Sedated No (0 pts) Impaired Gait No (0 pts) Mobility Assist Device Used No (0 pt) Altered Elimination No (0 pt) Score/Fall Risk Level 0 - 2 = Low Risk Oriented to surroundings, Maintained a safe environment, Assessed \T\ reinforced patient's understanding of fall precautions, Hourly rounding (assess needs \T\ fall precautionary measures) done. Abuse screen: Denies threats or abuse. Nutritional screening: No deficits noted. Tuberculosis screening: No symptoms or risk factors identified. Assessment: 21:05 General: Appears uncomfortable, Behavior is calm, cooperative, appropriate for age. cp4 21:05 Pain: Complains of pain in right subscapular area and right scapular area and back Pain cp4 currently is 7 out of 10 on a pain scale. Neuro: Level of Consciousness is awake, alert, obeys commands, Oriented to person, place, time, situation, Financial Underwriter are equal bilaterally Moves all extremities. Gait is steady, Speech is normal, Facial symmetry appears normal, Pupils are PERRLA, Intact. Cardiovascular: Rhythm is sinus rhythm. Respiratory: Airway is patent Respiratory effort is even, unlabored. GI: No signs and/or symptoms were reported involving the gastrointestinal system. : No signs and/or symptoms were reported regarding the genitourinary system. EENT: No signs and/or symptoms were reported regarding the EENT system. Derm: No signs and/or symptoms reported regarding the dermatologic system. Musculoskeletal: Reports pain in right subscapular area and right scapular area and back. 22:00 Reassessment: Patient appears in no apparent distress at this time. Patient and/or cp4 family updated on plan of care and expected duration. Pain level reassessed. Patient is alert, oriented x 3, equal unlabored respirations, skin warm/dry/pink. 23:00 Reassessment: Patient appears in no apparent distress at this time. Patient and/or cp4 family updated on plan of care and expected duration. Pain level reassessed. Patient is alert, oriented x 3, equal unlabored respirations, skin warm/dry/pink. 11/15 00:00 Reassessment: Patient appears in no apparent distress at this time. Patient and/or cp4 family updated on plan of care and expected duration. Pain level reassessed. Patient is alert, oriented x 3, equal unlabored respirations, skin warm/dry/pink. 01:00 Reassessment: Patient appears in no apparent distress at this time. Patient and/or cp4 family updated on plan of care and expected duration. Pain level reassessed. Patient is alert, oriented x 3, equal unlabored respirations, skin warm/dry/pink. 02:00 Reassessment: Patient appears in no apparent distress at this time. Patient and/or cp4 family updated on plan of care and expected duration. Pain level reassessed. Patient is alert, oriented x 3, equal unlabored respirations, skin warm/dry/pink. 03:00 Reassessment: Patient appears in no apparent distress at this time. Patient and/or cp4 family updated on plan of care and expected duration. Pain level reassessed. Patient is alert, oriented x 3, equal unlabored respirations, skin warm/dry/pink. 03:38 Reassessment: Disposition pending additional doctor's orders. cp4 Vital Signs: 11/14 21:05 BP 187 / 83; Pulse 82; Resp 20; Temp 97.6(O); Pulse Ox 99% on R/A; Weight 73.48 kg; tm6 Height 5 ft. 4 in. ; Pain 10/10; 23:30 BP 138 / 46; Pulse 77; Resp 18; Pulse Ox 98% ; cp4 11/15 00:30 BP 161 / 64; Pulse 80; Resp 18; Pulse Ox 100% ; cp4 01:30 BP 137 / 59; Pulse 79; Resp 18; Pulse Ox 99% ; cp4 02:30 BP 160 / 62; Pulse 79; Resp 18; Pulse Ox 98% ; cp4 03:30 BP 132 / 62; Pulse 81; Resp 18; Pulse Ox 98% ; cp4 03:30 BP 136 / 66; Pulse 82; Resp 18; Pulse Ox 98% ; cp4 11/14 21:05 Body Mass Index 27.81 (73.48 kg, 162.56 cm) 6 11/14 21:05 Pain Scale: Adult 6 ED Course: 11/14 20:42 Patient arrived in ED. im 21:05 Bed in low position. Call light in reach. Side rails up X2. cp4 21:08 Triage completed. tm6 21:08 Arm band placed on right wrist. tm6 21:11 Joe Sprague MD is Attending Physician. [facility] 21:44 CT Lumbar Spine Wo Con In Process Unspecified. EDMS 22:05 Urinalysis w/ reflexes Sent. 6 23:26 Radha Philip is Primary Nurse. cp4 23:26 No provider procedures requiring assistance completed. Inserted saline lock: 22 gauge cp4 in left antecubital area, using aseptic technique. Blood collected. Flushed with 10 mL NS. 23:26 Initial lab(s) drawn, by ri, sent to lab. cp4 23:27 Comprehensive Metabolic Panel Sent. cp4 23:27 CBC with Diff Sent. 4 11/15 01:09 XRAY Chest (1 view) In Process Unspecified. EDMS 01:35 CT Chest For PE Angio In Process Unspecified. EDMS 01:36 CT Abd/Pelvis - IV Contrast Only In Process Unspecified. EDMS 03:07 Nuzhat Warner MD is Referral Physician. radha Administered Medications: 11/14 23:32 Drug: NS 0.9% IV 500 ml IV at bolus once Route: IV; Rate: bolus; Site: left antecubital;cp4 11/15 00:45 Drug: NS 0.9% IV 1000 ml IV at 125 ml/hr continuous Route: IV; Rate: 125 ml/hr; Site: cp4 left antecubital; 04:19 Follow up: Response: No adverse reaction; IV Status: Completed infusion cp4 00:46 Drug: Mucomyst - Acetylcysteine PO 600 mg PO once Route: PO; cp4 02:32 Follow up: Response: No adverse reaction cp4 03:11 Drug: Rocephin IV 1 grams IV at per protocol once; Given slow IV push per pharmacy cp4 instructions Route: IV; Rate: per protocol; Site: left antecubital; 03:12 Follow up: Response: No adverse reaction; IV Status: Completed infusion cp4 03:54 Drug: Insulin Regular Human IVP 5 units IVP once {Co-Signature: keron (Jazmine Rodriguez RN).} Route: IVP; Site: left antecubital; 04:19 Follow up: Response: No adverse reaction cp4 03:54 Drug: Insulin Glargine Sub-Q 30 units Sub-Q once {Co-Signature: keron (Jazmine Rodriguez RN).} Route: Sub-Q; Site: left upper arm; 04:19 Follow up: Response: No adverse reaction cp4 Medication: 11/14 21:05 VIS not applicable for this client. cp4 Outcome: 11/15 03:08 Discharge ordered by MD. garica 04:31 Patient left the ED. cp4 Signatures: Dispatcher [employer] EDME Joe Sprague MD MD cha Mendoza, Itzel im Potter, Christina cp4 Felecia Hall RN RN tm6 Jazmine Rodriguez RN5 Corrections: (The following items were deleted from the chart) 03:36 03:35 Neuro: Level of Consciousness is awake, alert, obeys commands, Oriented to cp4 person, place, time, situation, Financial Underwriter are equal bilaterally Moves all extremities. Gait is steady, Speech is normal, Facial symmetry appears normal, Pupils are PERRLA, Intact cp4
[2023-11-16] MEDS ORDERED: INSULIN GLARGINE 100 UNIT/ML SQ ONE (03:48)
[2023-11-16] MEDS ORDERED: INSULIN REGULAR (HUMAN) 100 UNIT/ML ONE (03:48)
[2023-11-16 04:37] VITALS: TEMP 97.6
[2023-11-16 04:42] VITALS: O2SAT 98
[2023-11-16 04:44] VITALS: BP 136/66
--- NOTE | 2023-11-16 16:56 | EKG ---
Test Date: 2023-11-16 Test Time: 00:38:27 Boiler Mechanic: JUAN MEASUREMENT RESULTS: Intervals: Rate: 77 IL: 162 QRSD: 70 QT: 376 QTc: [address] [place]: P: 70 IL: 162 QRS: 74 T: 75 INTERPRETIVE STATEMENTS: Normal sinus rhythm Normal ECG No previous ECG available for comparison Electronically Signed On 11-16-23 16:54:41 CDT by Kayode Dawson
--- NOTE | 2023-11-16 18:04 | RAD REPORT ---
EXAM DESCRIPTION: CT - Chest For Pe Angio - 11/16/2023 6:32 am CLINICAL HISTORY: The patient is 68 years old and is Female; Chest pain;Dyspnea TECHNIQUE: Axial computed tomographic angiography images of the chest with intravenous contrast. S agittal and coronal reformatted images were created and reviewed. This CT exam was performed using one or more of the following dose reduction techniques: automated exposure control, adjustment of t he mA and/or kV according to patient size, and/or use of iterative reconstruction technique. MIP reconstructed images were created and reviewed. COMPARISON: No relevant prior studies available. FINDINGS: PULMONARY ARTERIES: There are no obvious filling defects identified within the pulmonary arteries to suggest pulmonary embolism. AORTA: Atherosclerosis of the aorta is present. No thoracic aortic aneurysm. LUNGS: Unremarkable. No mass. No consolidation. PLEURAL SPACE: Unremarkable. No significant effusion. No pneumothorax. HEART: Unremarkable. No cardiomegaly. No significant pericardial effusion. No evidence of R V dysfunction. BONES/JOINTS: Evidence of vertebroplasty of T12 is noted. There is no acute fracture. No disloc ation. SOFT TISSUES: Unremarkable. LYMPH NODES: Unremarkable. No enlarged lymph nodes. IMPRESSION: No evidence of pulmonary embolism. Electronically signed by: Omayra Garcia MD 11/16/2023 02:37 AM CDT Due to temporary technical issues with the PACS/Fluency reporting system, reports are being signed by the in house radiologists without review as a courtesy to insure prompt reporting. The interpreting radiologist is fully responsible for the content of the report.
--- NOTE | 2023-11-16 18:05 | RAD REPORT ---
EXAM DESCRIPTION: CT - Abdomen Pelvis W Contrast - 11/16/2023 6:[address] Abdomen and Pelvis With Intravenous Contrast CLINICAL HISTORY: The patient is 68 years old and is Female; FLANK PAIN TECHNIQUE: Axial computed tomography images of the abdomen and pelvis with intravenous contrast. S agittal and coronal reformatted images were created and reviewed. This CT exam was performed using one or more of the following dose reduction techniques: automated exposure control, adjustment of t he mA and/or kV according to patient size, and/or use of iterative reconstruction technique. COMPARISON: No relevant prior studies available. FINDINGS: ARTIFACTS: The exam is suboptimal secondary to motion artifact. LUNG BASES: Unremarkable. No mass. No consolidation. ABDOMEN: LIVER: The liver is enlarged and mildly fatty. GALLBLADDER AND BILE DUCTS: Surgical clips are present in the right upper quadrant, consistent wi th previous cholecystectomy. PANCREAS: No ductal dilation. No mass. SPLEEN: Unremarkable. ADRENALS: 1.9 cm right adrenal gland nodule with a Hounsfield unit of 54 is present. The left adr enal gland is normal. KIDNEYS AND URETERS: Unremarkable. The kidneys enhance symmetrically. No obstructing renal or ure teral calculus is seen. No hydronephrosis or hydroureter. No perinephric fluid or stranding. STOMACH AND BOWEL: The stomach is filled with fluid and air. The small bowel is normal in caliber . A moderate amount of stool is present throughout the colon. There is no mucosal thickening or evide nce of obstruction. PELVIS: APPENDIX: No findings to suggest acute appendicitis. BLADDER: The bladder is well distended. REPRODUCTIVE: Unremarkable as visualized. ABDOMEN and PELVIS: INTRAPERITONEAL SPACE: Unremarkable. No free air. No significant fluid collection. BONES/JOINTS: Evidence of vertebroplasty at T12 and L1 is present. Chronic compression deformity of L3 is noted. Degenerative change specifically at L5-S1 is present. SOFT TISSUES: The soft tissues are normal. VASCULATURE: Atherosclerosis of the vasculature is present. The vessels are normal in caliber. No abdominal aortic aneurysm. LYMPH NODES: Unremarkable. No enlarged lymph nodes. IMPRESSION: 1. No acute findings on this contrasted CT of the abdomen and pelvis to explain the patient's symptoms. 2. Right adrenal gland nodule. Recommend follow-up adrenal washout CT in 1 year. If stable for \X22 65\ 1 year, no further follow-up imaging. Electronically signed by: Omayra Garcia MD 11/16/2023 02:40 AM CDT RP Due to temporary technical issues with the PACS/Fluency reporting system, reports are being signed by the in house radiologists without review as a courtesy to insure prompt reporting. The interpreting radiologist is fully responsible for the content of the report.
--- NOTE | 2023-11-16 18:22 | RAD REPORT ---
EXAM DESCRIPTION: RAD - Chest Single View - 11/16/2023 1:07 am CLINICAL HISTORY: Chest pain, dyspnea. TECHNIQUE: Frontal view of the chest. COMPARISON: XR Chest 05/27/2019 (report only). FINDINGS: Lungs: Unremarkable. No consolidation. Pleural space: Unremarkable. No pneumothorax. Heart: Unremarkable. No cardiomegaly. Mediastinum: Unremarkable. Normal mediastinal contour. Bones/joints: Multilevel spondylosis. No acute fracture. Vasculature: Thoracic aortic atherosclerosis. IMPRESSION: No acute disease. Electronically signed by: Adán Dunn MD 11/16/2023 01:57 AM CDT Due to temporary technical issues with the PACS/Fluency reporting system, reports are being signed by the in house radiologists without review as a courtesy to insure prompt reporting. The interpreting radiologist is fully responsible for the content of the report.
== END 2023-11-16 04:31 | disposition home or self-care (01) ==
LOC: ER 20:38
DX: S29.012A Strain of muscle and tendon of back wall of thorax, initial encounter (principal); E10.65 Type 1 diabetes mellitus with hyperglycemia; N39.0 Urinary tract infection, site not specified; I10 Essential (primary) hypertension
CPT/HCPCS: 85025; 81001; 36415; 80053; 72131; J7040; 71045; 71275; 74177; 82947; 83735; 83880; 84484; 85610; 87086; 87088; 93005; J0696; J7030; J7608; Q9967

== ENCOUNTER 2024-05-21 16:05 | Emergency (ER) | payer OTHER, SELFPAY ==
--- OUTSIDE RECORDS SUMMARY | 2024-05-21 16:07 | XMS REPORT | Continuity of Care Document ---
Author Name Unknown Address [address] [facility] [address] [place] [address] [facility] Address [address] [facility] [address] [place] [address] Care Team Providers Care Technical Operations Manager Name Role Phone Asked, No Pcp Primary Care Physician Unavailab le Social History Social Habit Start Date Stop Date Quantity Comments Source ASSERTION Not Joshua Mix Sexual orientation H ouant Mix Alcoholic beverage intake 2022-07-05 00:00:00 2022-07-05 00:00:00 Lifetime non-drinker (finding) Joshua Mix History of Social function 2022-07-05 00:00:00 2022-07-05 00:00:00 Joshua Mix Tobacco use and exposure 2022-07-05 00:00:00 2022-07-05 00:00:00 Smokeless tobacco non-user Joshua Mix Alcohol intake 2022-07-05 00:00:00 2022-07-05 00:00:00 Lifetime non-drinker (finding) Joshua Mix Sex assigned at 1955 00:00:00 1955 00:00:00 Joshua Mix Smoking Status Start Date Stop Date Source Never smoked tobacco Joshua Mix Medications Ordered Medication Name Filled Medication Name Start Date Stop Date Current Medication? Ordering Clinician Indication Dosage Frequency Signature (SIG) Comments Components Source acetaminoph en-codeine (TYLENOL WITH CODEINE #3) 300-30 mg per tablet 07-05 00:00: 00 Yes acute pain 1{tbl} Q6H Take 1-2 tablets by mouth every 6 (six) hours as needed for moderate pain .acute pain. [facility]
--- NOTE | 2024-05-21 18:43 | RAD REPORT ---
EXAMINATION: CT HEAD WITHOUT CONTRAST CT CERVICAL SPINE WITHOUT CONTRAST CLINICAL INDICATION: Female, 68 years old. fall;Pain TECHNIQUE: Axial CT images from the skull base to the vertex without intravenous contrast. Axial CT i mages through the cervical spine were obtained without intravenous contrast. Sagittal and coronal reformatted images were created from the data set. Coronal and sagittal reformatted images were creat ed from the data set. One or more of the following dose reduction techniques were used: Automated exposure control, adjustment of the mA and/or kV according to patient size, and/or iterative reconstr uction. Unless otherwise specified, incidental findings do not require dedicated imaging follow-up. [id number]. COMPARISON: No prior exam. FINDINGS: Head: INTRACRANIAL: No acute intracranial hemorrhage. No hydrocephalus. No mass effect or midline shift. Mo derate chronic small vessel ischemic changes.Mild cerebral atrophy. Cavum septum pellucidum. Small remote cruz radiata lacunar infarcts. VASCULATURE: No visualized abnormalities in the arteries or dural venous sinuses. SCALP/SKULL: No significant soft tissue or osseous abnormalities. SINUSES: The visualized paranasal sinuses and mastoid air cells are predominantly clear. Cervical spine: ALIGNMENT: The cervical spine has normal alignment without scoliosis or spondylolisthesis. BONE: Vertebral body heights are maintained. No aggressive osseous lesions. DEGENERATIVE CHANGES: Mild cervical spondylosis including bilateral neural foraminal narrowing at the C5-6 level. No high-grade central spinal stenosis. SOFT TISSUE: 13 mm nodule in the left thyroid lobe. Carotid artery calcifications. IMPRESSION: No acute intracranial abnormality. No acute fracture or traumatic malalignment of the cervical spine.
--- NOTE | 2024-05-21 18:58 | RAD REPORT ---
EXAMINATION: CT LUMBAR SPINE WITHOUT CONTRAST CLINICAL INDICATION: Female, 68 years old. fall;Pain TECHNIQUE: Axial CT images were obtained through the lumbar spine in soft tissue and bone windows wit hout intravenous contrast. Coronal and Sagittal reformatted images were created from the data set. One or more of the following dose reduction techniques were used: Automated exposure control, adjustm ent of the mA and/ or kV according to patient size, and/or iterative reconstruction. Unless otherwise specified, incidental findings do not require dedicated imaging follow-up. [id number]. COMPARISON: 11/15/2023 FINDINGS: For purposes of this dictation, it is assumed that there are 5 non rib-bearing lumbar type vertebrae, and the most caudal fully segmented lumbar vertebra is labeled L5. ALIGNMENT: The lumbar spine demonstrates normal alignment without scoliosis or spondylolisthesis. BONES: T12-L1 kyphoplasty. Remote L3 compression fracture. Subtle superior endplate cavity at L2 coul d represent a superior endplate compression fracture. DISCS: Severe disc height loss at L5-S1 with vacuum disc phenomenon and some underlying endplate irre gularity. This is similar to 2023. Mild diffuse disc height loss at the remaining levels. LEVELS: Very degrees of neural foraminal narrowing bilaterally. No high-grade central spinal stenosis . SOFT TISSUE: Atherosclerosis. IMPRESSION: Slight superior endplate cavity at L2 could represent an uterine or subacute compression fracture wit h minimal height loss. MRI could confirm. Prior T12-L1 kyphoplasty and remote L3 compression fracture.
--- NOTE | 2024-05-21 19:09 | RAD REPORT ---
EXAMINATION: Pelvis Wo Cont CLINICAL INDICATION: Female, 68 years old. Pain;Trauma TECHNIQUE: CT pelvis was performed, without IV contrast, as per department protocol. Axial, sagittal and coronal reconstructions were obtained. One or more of the following dose reduction techniques were used: Automated exposure control, adjustment of the mA and/or kV according to patient size, and/ or iterative reconstruction. Unless otherwise specified, incidental findings do not require dedicated imaging follow-up. [id number]. IV CONTRAST: Not administered. COMPARISON: No prior exam. FINDINGS: SMALL BOWEL/COLON: Small bowel has normal course and caliber. No colonic wall thickening or pericolon ic inflammatory changes. LYMPH NODES: No lymphadenopathy. ABDOMINAL AORTA AND OTHER VESSELS: Moderate atherosclerotic changes without aortic aneurysm. PERITONEUM: No abnormal free fluid. No free air. ABDOMINAL WALL: No significant abnormality. REPRODUCTIVE ORGANS: No pathologic process. URINARY BLADDER: Underdistended but grossly unremarkable. MUSCULOSKELETAL: Remote appearing fracture at S4-S5. No acute fracture identified. ADDITIONAL FINDINGS: None. IMPRESSION: No acute findings in the pelvis. Specifically, no acute fracture involving either the bony pelvis or hips.
--- NOTE | 2024-05-21 19:17 | ER ---
Nurse's Notes [facility] Name: Edda Mei Age: 68 yrs Sex: Female : 1955 Arrival Date: 05/21/2024 Time: 16:05 Bed DX4 Private MD: Diagnosis: Low back pain;Pain in hip Presentation: 05/21 17:13 Chief complaint: Patient states: she fell getting up to go to the restroom two nights ap3 ago, injuring the right side of her back and hip. patient also reports pain in her neck. Coronavirus screen: At this time, the client does not indicate any symptoms associated with coronavirus-19. Ebola Screen: No symptoms or risks identified at this time. Initial Sepsis Screen: Does the patient meet any 2 criteria? No. Patient's initial sepsis screen is negative. Does the patient have a suspected source of infection? No. Patient's initial sepsis screen is negative. Risk Assessment: Do you want to hurt yourself or someone else? Patient reports no desire to harm self or others. Onset of symptoms was May 19, 2024. 17:13 Method Of Arrival: Ambulatory ap3 17:13 Acuity: BIJU 3 ap3 Triage Assessment: 17:16 General: Appears in no apparent distress. Behavior is calm, cooperative, appropriate ap3 for age. Pain: Complains of pain in back and neck Pain currently is 0 out of 10 on a pain scale. at worst was 8 out of 10 on a pain scale. Aggravated by increased activity, repositioning, weight bearing. Neuro: Level of Consciousness is awake, alert, obeys commands, Oriented to person, place, time, situation, Appropriate for age. Cardiovascular: Patient's skin is warm and dry. Respiratory: Airway is patent Respiratory effort is even, unlabored, Respiratory pattern is regular, symmetrical. Historical: - Allergies: 17:15 No Known Allergies; ap3 - PMHx: 17:15 Diabetes - IDDM; Hypercholesterolemia; Hypertensive disorder; ap3 - PSHx: 17:15 section; cement on discs post fall (fo); Cholecystectomy; right foot; ap3 - Immunization history:: Client reports receiving the 2nd dose of the Covid vaccine, Flu vaccine is up to date. - Infectious Disease History:: Denies. - Social history:: Smoking status: Patient denies any tobacco usage or history of. Screenin:17 Abuse screen: Denies threats or abuse. Nutritional screening: No deficits noted. ap3 Tuberculosis screening: No symptoms or risk factors identified. 19:31 [facility] ED Fall Risk Assessment (Adult) History of falling in the last 3 months, ap3 including since admission Yes- fall prone (multiple falls) (3 pts) Confusion or Disorientation No (0 pts) Intoxicated or Sedated No (0 pts) Impaired Gait No (0 pts) Mobility Assist Device Used Yes (1 pt) Altered Elimination No (0 pt) Score/Fall Risk Level 3 or more points = High Risk Oriented to surroundings, Maintained a safe environment, Educated pt \T\ family on fall prevention, incl call for assistance when getting out of bed, Assessed \T\ reinforced patient's understanding of fall precautions, Hourly rounding (assess needs \T\ fall precautionary measures) done, Used ambulatory aids as needed (educated on \T\ assisted with), Implemented a Fall Risk Plan of Care, Remained w/in arm's length of patient and in sight while toileting, Offered frequent toileting (1:1 observation), Remained with patient while ambulating, Utilized family, sitter, or virtual java developer consultant as indicated. Vital Signs: 17:13 BP 165 / 64; Pulse 82; Resp 18; Temp 98.1; Pulse Ox 94% ; ap3 17:15 Weight 73.48 kg; Pain 0/10; ap3 17:15 Pain Scale: Adult ap3 ED Course: 16:08 Patient arrived in ED. al6 16:55 Moses Devine DO is Attending Physician. ms3 17:15 Triage completed. ap3 17:17 Arm band placed on left wrist. ap3 18:32 CT Head C Spine In Process Unspecified. EDMS 18:32 CT Lumbar Spine Wo Con In Process Unspecified. EDMS 18:32 CT Pelvis wo Cont In Process Unspecified. EDMS 18:55 Attending Physician role handed off by Moses Devine DO ec2 18:55 Jose Stock MD is Attending Physician. ec2 19:31 Patient has correct armband on for positive identification. Provided Education on: ap3 discharge instructions. 19:31 No provider procedures requiring assistance completed. Patient did not have IV access ap3 during this emergency room visit. Administered Medications: No medications were administered Medication: 19:32 VIS not applicable for this client. ap3 Outcome: 19:16 Discharge ordered by . ec2 19:31 Discharged to home ambulatory, with family, ap3 19:31 Condition: good 19:31 Discharge instructions given to patient, family, Instructed on discharge instructions, follow up and referral plans. medication usage, Demonstrated understanding of instructions, follow-up care, medications, Prescriptions given X 1, 19:32 Patient left the ED. ap3 Signatures: Dispatcher [employer] Jazmine Lackey RN RN ap3 Moses Devine DO DO ms3 Jose Stock MD MD ec2 Debbie Donato6 Corrections: (The following items were deleted from the chart) 17:15 17:13 Chief complaint: Patient states: she fell getting up to go to the restroom two ap3 nights ago, injuring the right side of her back and hip. ap3
--- NOTE | 2024-05-21 19:18 | EDPHYS ---
Physician Documentation [facility] Name: Edda Mei Age: 68 yrs Sex: Female : 1955 Arrival Date: 05/21/2024 Time: 16:05 Bed DX4 Private MD: ED Physician Jose Stock HPI: 05/21 18:26 This 68 yrs old Female presents to ER via Ambulatory with complaints of Fall ms3 Injury. 18:26 68-year-old female past medical history of diabetes, hypercholesterolemia, hypertension ms3 presents to the emergency department for fall that occurred 2 days prior to arrival. Patient states she is having back pain, right hip pain. Patient endorses nausea and vomiting. Historical: - Allergies: 17:15 No Known Allergies; ap3 - PMHx: 17:15 Diabetes - IDDM; Hypercholesterolemia; Hypertensive disorder; ap3 - PSHx: 17:15 section; cement on discs post fall (fo); Cholecystectomy; right foot; ap3 - Immunization history:: Client reports receiving the 2nd dose of the Covid vaccine, Flu vaccine is up to date. - Infectious Disease History:: Denies. - Social history:: Smoking status: Patient denies any tobacco usage or history of. ROS: 18:26 Constitutional: Negative for fever, and chills. Cardiovascular: Negative for chest ms3 pain, and palpitations. Respiratory: Negative for shortness of breath, cough, wheezing, and pleuritic chest pain, Abdomen/GI: Negative for abdominal pain, nausea, vomiting, diarrhea, and constipation, 18:26 Back: Positive for Back pain, 18:26 MS/extremity: Positive for Right hip pain, Exam: 18:26 Constitutional: This is a well developed, well nourished patient who is awake, alert, ms3 and in no acute distress. Cardiovascular: Regular rate and rhythm with a normal S1 and S2. No gallops, murmurs, or rubs. Normal PMI, no JVD. No pulse deficits. Respiratory: Lungs have equal breath sounds bilaterally, clear to auscultation and percussion. No rales, rhonchi or wheezes noted. No increased work of breathing, no retractions or nasal flaring. Abdomen/GI: Soft, non-tender, with normal bowel sounds. No distension or tympany. No guarding or rebound. No evidence of tenderness throughout. Skin: Warm, dry with normal turgor. Normal color with no rashes, no lesions, and no evidence of cellulitis. 18:26 Back: vertebral tenderness, is not appreciated, muscle spasm, is appreciated in the left low back and right low back, Vital Signs: 17:13 BP 165 / 64; Pulse 82; Resp 18; Temp 98.1; Pulse Ox 94% ; ap3 17:15 Weight 73.48 kg; Pain 0/10; ap3 17:15 Pain Scale: Adult ap3 MDM: 17:16 Medical Screening Exam initiated ms3 18:26 Differential diagnosis: closed head injury, contusion, fracture, sprain, strain. ms3 18:48 Transition of care: After a detail discussion of the patient's case, care is ms3 transferred to Jose Stock MD. 18:59 Data reviewed: vital signs, nurses notes. ED course: Patient signed out to me by ec2 previous physician, brief arrives today after a ground-level fall complaints of back pain. Plan to follow-up CT imaging and reassess, likely discharge home.. 19:16 ED course: Examination of possible L2 endplate fracture which is not medically have ec2 patient follow-up with orthopedic surgery. Discharged home, return precautions given . 05/21 17:16 Order name: CT Head C Spine; Complete Time: 18:48 ms3 05/21 17:18 Order name: CT Lumbar Spine Wo Con; Complete Time: 19:15 ms3 05/21 17:18 Order name: CT Pelvis wo Cont; Complete Time: 19:15 ms3 Administered Medications: No medications were administered Disposition Summary: 05/21/24 19:16 Discharge Ordered Notes: Location: Home ec2 Condition: Stable ec2 Diagnosis - Low back pain ec2 - Pain in hip ec2 Followup: ec2 - With: Private Physician - When: - Reason: Re-evaluation by your physician Discharge Instructions: - Discharge Summary Sheet ec2 - Acute Back Pain, Adult ec2 Forms: - Medication Reconciliation Form ec2 - Antibiotic Education ec2 - Prescription Opioid Use ec2 - Patient Portal Instructions ec2 - Leadership Thank You Letter ec2 Prescriptions: - methocarbamol 500 mg Oral tablet - take 1 tablet ORAL route 4 times per day; 15 tablet; Refills: 0, Product ec2 Selection Permitted Signatures: Dispatcher [employer] Jazmine Lackey RN RN ap3 Moses Devine, DO ms3 Jose Stock MD MD ec2
[2024-05-21 19:41] VITALS: BP 165/64; TEMP 98.1; O2SAT 94
== END 2024-05-21 19:32 | disposition home or self-care (01) ==
LOC: ER 16:05
DX: M54.50 Low back pain, unspecified (principal); M25.551 Pain in right hip; W18.30XA Fall on same level, unspecified, initial encounter
CPT/HCPCS: 70450; 72125; 72131; 72192; 99283

== ENCOUNTER 2024-10-09 21:34 | Inpatient (IN) | payer OTHER ==
--- OUTSIDE RECORDS SUMMARY | 2024-10-09 21:37 | XMS REPORT | Continuity of Care Document ---
Author Name Unknown Address [address] [place] [address] [facility] Address [address] [place] [address] Care Team Providers Care Electrical Foreman Name Role Phone Asked, No Pcp Primary [...] as needed for moderate pain .acute pain. [facility]
[2024-10-09] MEDS ORDERED: NA CHLORIDE 0.9% 1,000 ML ONE (22:03)
--- NOTE | 2024-10-09 22:27 | RAD REPORT ---
EXAMINATION: ONE VIEW CHEST XR CLINICAL INDICATION: Female, 69 years old.,fever, AMS TECHNIQUE: Frontal chest projection is submitted. Examination is limited by patient positioning and t echnique. COMPARISON: 09/07/2024 FINDINGS: The lungs are grossly clear of focal consolidation although suboptimal inspiratory effort somewhat li mits evaluation. Mild central interstitial prominence seen particularly on the left No pneumothorax or sizable effusion. The heart is normal in size. Mediastinal contours are unremarkable. IMPRESSION: Mild central interstitial prominence may suggest a degree of central congestion. Suboptimal distentio n limits evaluation.
[2024-10-09 22:42] LABS: PT Prothrombin Time 14.6 SECONDS (10-13.0); PTT, Activated Partial Thromb 24.4 SECONDS (27.2-37.4); Protime INR 1.3
[2024-10-09] MEDS ORDERED: NA CHLORIDE 0.9% 100 ML ONE (22:42)
[2024-10-09] MEDS ORDERED: CEFEPIME 1 GM/VIAL ONE (22:42)
[2024-10-09 22:50] LABS: Sqamous Epithelial <5 /HPF (None Seen); Urine Culture Reflex Order REFLEXED; Urine Microscopic Reflex YN ORDER UMIC; Urine WBC Clump Rare /HPF (None Seen)
[2024-10-09 22:53] LABS: ALT/SGPT 15.0 U/L (13-56); AST/SGOT 18.0 U/L (15-37); Albumin 2.7 g/dL (3.4-5.0); Albumin/Globulin Ratio 0.5 (1.1-1.8); Alkaline Phosphatase 148.0 U/L (45-117); Anion Gap 15.7 mEq/L (5.0-15.0); BUN Blood Urea Nitrogen 65.0 mg/dL (7-18); Globulin 5.2 g/dL (2.3-3.5); NT PRO-BNP 10233.0 pg/mL (<125); Potassium 3.7 mEq/L (3.5-5.1)
[2024-10-09 22:55] LABS: Glucose Level 420.0 mg/dL (74-106); Troponin High Sensitivity 725.7 pg/mL (<58.9)
[2024-10-09 23:00] LABS: Absolute Lymphocytes (CBC) 0.4 K/uL (0.7-4.9); Hematocrit 26.5 % (36.0-45.0); Hemoglobin 8.6 g/dL (12.0-15.0); MCH 28.4 pg (27.0-35.0); MCHC 32.6 g/dL (32.0-36.0); MCV 87.2 fL (80-100); MPV 8.3 fL (7.6-11.3); Nucleated RBC Absolute Count 0.0 (0-0); Nucleated Red Blood Cells % 0.0 % (0-0); RBC Red Blood Cell Count 3.03 M/uL (3.86-4.86); White Blood Count 18.30 thou/uL (4.3-10.9)
[2024-10-09] MEDS ORDERED: NOREPINEPHRINE BITARTRATE/D5W 4 MG/250 ML BAG IV ONE (23:11)
[2024-10-09] MEDS ORDERED: ACETAMINOPHEN 325 MG/SUPP PR ONE (23:11)
[2024-10-10 01:27] LABS: Blood Morphology Comment NOT SEEN (NOT SEEN); Differential Total Cells Count 100; Segmented Neutrophils 56 % (40-80)
[2024-10-10] MEDS ORDERED: NA CHLORIDE 0.9% 250 ML ONE (02:26)
[2024-10-10] MEDS ORDERED: VANCOMYCIN 1 GM/VIAL ONE (02:27)
--- NOTE | 2024-10-10 03:55 | ER ---
Nurse's Notes [facility] Name: Edda Mei Age: 69 yrs Sex: Female : 1955 Arrival Date: 10/09/2024 Time: 21:34 Bed 2 Private MD: Diagnosis: Severe sepsis with septic shock;Pyelonephritis acute;Altered mental status, unspecified Presentation: 10/09 21:35 Chief complaint: EMS states: per pt has been getting progressively worse and bm8 not making any sense. this is going on two days. pt is AOx1. responding to name only. Coronavirus screen: At this time, the client does not indicate any symptoms associated with coronavirus-19. Ebola Screen: Patient negative for fever greater than or equal to 101.5 degrees Fahrenheit, and additional compatible Ebola Virus Disease symptoms Patient denies exposure to infectious person. Patient denies travel to an Ebola-affected area in the 21 days before illness onset. No symptoms or risks identified at this time. 21:35 Method Of Arrival: EMS: [facility] bm8 21:35 Initial Sepsis Screen: Does the patient meet any 2 criteria? Temp <36.0*C (96.8*F)) or bm8 > 38.3*C (100.9*F). Systolic BP < 90 mmHg. Mean Arterial Pressure (MAP) < 65. Altered Mental Status. HR > 90 bpm. Yes Does the patient have a suspected source of infection? No. Patient's initial sepsis screen is negative. Risk Assessment: Do you want to hurt yourself or someone else? Patient reports no desire to harm self or others. Onset of symptoms was October 07, 2024. 21:35 Acuity: BIJU 2 bm8 Triage Assessment: 21:35 General: Appears in no apparent distress. comfortable, slender, well groomed, Behavior bm8 is cooperative, drowsy. Pain: Unable to use pain scale. Patient is disoriented. EENT: No deficits noted. No signs and/or symptoms were reported regarding the EENT system. Neuro: Level of Consciousness is awake, obeys commands, lethargic, Oriented to person. Cardiovascular: Denies chest pain, Heart tones S1 S2 present Capillary refill < 3 seconds in bilateral fingers toes Patient's skin is warm and dry. Rhythm is sinus rhythm. Respiratory: Airway is patent Respiratory effort is even, unlabored, Respiratory pattern is regular, symmetrical, Breath sounds are clear bilaterally. GI: No signs and/or symptoms were reported involving the gastrointestinal system. Abdomen is flat, non-distended, Bowel sounds present X 4 quads. : No signs and/or symptoms were reported regarding the genitourinary system. Urine is cloudy. Derm: No signs and/or symptoms reported regarding the dermatologic system. Musculoskeletal: No signs and/or symptoms reported regarding the musculoskeletal system. Historical: - Allergies: 21:35 AVOCADO (LAURUS PERSEA); jb4 - PMHx: 21:35 Hypertensive disorder; Hypercholesterolemia; Diabetes - IDDM; jb4 - PSHx: 21:35 cement on discs post fall; section; right foot; Cholecystectomy; jb4 - Immunization history:: Adult Immunizations unknown. - Infectious Disease History:: Denies. - Social history:: Smoking status: unknown. - History obtained from: EMS. Screenin:20 [facility] ED Fall Risk Assessment (Adult) History of falling in the last 3 months, bm8 including since admission No falls in past 3 months (0 pts) Confusion or Disorientation Yes (5 pts) Intoxicated or Sedated No (0 pts) Impaired Gait Yes (1 pt) Mobility Assist Device Used No (0 pt) Altered Elimination Yes (1 pt) Score/Fall Risk Level 0 - 2 = Low Risk Oriented to surroundings, Maintained a safe environment, Educated pt \T\ family on fall prevention, incl call for assistance when getting out of bed, Assessed \T\ reinforced patient's understanding of fall precautions, Hourly rounding (assess needs \T\ fall precautionary measures) done, Used ambulatory aids as needed (educated on \T\ assisted with), Used gait belt as appropriate. Abuse screen: Denies threats or abuse. Nutritional screening: No deficits noted. Tuberculosis screening: No symptoms or risk factors identified. Assessment: 22:20 Reassessment: Patient appears in no apparent distress at this time. No changes from bm8 previously documented assessment. Patient and/or family updated on plan of care and expected duration. Pain level reassessed. 23:35 Reassessment: Patient appears in no apparent distress at this time. No changes from bm8 previously documented assessment. Patient and/or family updated on plan of care and expected duration. Pain level reassessed. 10/10 01:22 Reassessment: Patient appears in no apparent distress at this time. Patient and/or bm8 family updated on plan of care and expected duration. Pain level reassessed. Patient states feeling better. Patient states symptoms have improved. 02:19 Reassessment: Patient appears in no apparent distress at this time. Patient and/or bm8 family updated on plan of care and expected duration. Pain level reassessed. pt is resting with eyes closed breathing is even unlabored with symmetrical rise and fall of chest. NAD at this time. Patient states feeling better. 03:34 Reassessment: Patient appears in no apparent distress at this time. No changes from bm8 previously documented assessment. Patient and/or family updated on plan of care and expected duration. Pain level reassessed. 04:33 Reassessment: Patient appears in no apparent distress at this time. No changes from bm8 previously documented assessment. Patient and/or family updated on plan of care and expected duration. Pain level reassessed. 05:10 Reassessment: Patient appears in no apparent distress at this time. No changes from bm8 previously documented assessment. Patient and/or family updated on plan of care and expected duration. Pain level reassessed. Vital Signs: 10/09 21:35 BP 84 / 44; Pulse 97; Resp 18; Temp 102.3(A); Pulse Ox 98% on R/A; Weight 65.77 kg; bm8 Pain 0/10; 22:20 BP 78 / 41; Pulse 98; Resp 16; Temp 102.3; Pulse Ox 100% ; Pain 0/10; bm8 23:35 BP 70 / 42; Pulse 86; Resp 18; Temp 99.2(A); Pulse Ox 92% ; Pain 0/10; bm8 23:55 BP 131 / 52; Pulse 101; Resp 18; Temp 99.9; Pulse Ox 100% on 2 lpm NC; Pain 0/10; bm8 10/10 00:15 BP 134 / 61; Pulse 102; Resp 20; Temp 99.9; Pulse Ox 100% ; Pain 0/10; bm8 00:30 BP 127 / 53; Pulse 103; Resp 20; Temp 99.9; Pulse Ox 100% on 2 lpm NC; Pain 0/10; bm8 00:49 BP 129 / 53; Pulse 102; rn 01:00 BP 118 / 049; Pulse 102; Resp 20; Temp 99.9; Pulse Ox 99% ; Pain 0/10; bm8 01:07 BP 118 / 49; rn 02:19 BP 131 / 74; Pulse 95; Resp 16; Pulse Ox 100% on 2 lpm NC; Pain 0/10; bm8 02:35 BP 114 / 55; Pulse 94; Resp 17; Temp 99.7; Pulse Ox 100% on 2 lpm NC; Pain 0/10; bm8 02:51 BP 96 / 49; Pulse 94; Resp 18; Temp 99.6; Pulse Ox 96% ; Pain 0/10; bm8 03:34 BP 114 / 56; Pulse 93; Resp 16; Temp 99; Pulse Ox 100% on 2 lpm NC; Pain 0/10; bm8 04:33 BP 118 / 55; Pulse 91; Resp 17; Temp 99; Pulse Ox 100% ; Pain 0/10; bm8 05:10 BP 124 / 53; Pulse 92; Resp 18; Temp 99.4; Pulse Ox 100% on 2 lpm NC; Pain 0/10; bm8 10/09 21:35 Pain Scale: Adult bm8 22:20 Pain Scale: Adult bm8 23:35 Pain Scale: Adult bm8 23:55 Pain Scale: Adult bm8 16 00:15 Pain Scale: Adult bm8 00:30 Pain Scale: Adult bm8 01:00 Pain Scale: Adult bm8 02:19 Pain Scale: Adult bm8 02:35 Pain Scale: Adult bm8 02:51 Pain Scale: Adult bm8 03:34 Pain Scale: Adult bm8 04:33 Pain Scale: Adult bm8 05:10 Pain Scale: Adult bm8 [place] Coma Score: 10/09 22:20 Eye Response: spontaneous(4). Motor Response: obeys commands(6). Verbal Response: bm8 oriented(5). Total: . 16 00:15 Eye Response: spontaneous(4). Motor Response: obeys commands(6). Verbal Response: bm8 confused(4). Total: 14. 01:00 Eye Response: spontaneous(4). Motor Response: obeys commands(6). Verbal Response: bm8 confused(4). Total: 14. 02:19 Eye Response: to voice(3). Motor Response: obeys commands(6). Verbal Response: bm8 confused(4). Total: 13. 02:35 Eye Response: spontaneous(4). Motor Response: obeys commands(6). Verbal Response: bm8 confused(4). Total: 14. 03:34 Eye Response: to voice(3). Motor Response: obeys commands(6). Verbal Response: bm8 confused(4). Total: 13. 04:33 Eye Response: to voice(3). Motor Response: obeys commands(6). Verbal Response: bm8 confused(4). Total: 13. 05:10 Eye Response: to voice(3). Motor Response: obeys commands(6). Verbal Response: bm8 oriented(5). Total: 14. ED Course: 10/09 21:35 Patient arrived in ED. jb4 21:35 Lorenzo Wolff MD is Attending Physician. rn 21:35 Arm band placed on left wrist. bm8 21:50 Initial lab(s) drawn, by me, sent to lab. First set of blood cultures drawn by me, vk Urine collected: Mosqueda catheter specimen, cloudy, EKG done, by ED staff. 22:05 Second set of blood cultures drawn by me. vk 22:08 Chest Single View XRAY In Process Unspecified. EDMS 22:10 BNP Sent. vk 22:10 Blood Culture Adult (2) Sent. vk 22:10 CBC with Diff Sent. vk 22:10 CMP Sent. vk 22:10 Lactate w/ 2H reflex if indic. Sent. vk 22:10 Protime (+inr) Sent. vk 22:10 Troponin HS Sent. vk 22:10 Ptt, Activated Sent. vk 22:10 Inserted saline lock: 20 gauge in right antecubital area, using aseptic technique. vk Blood collected. Flushed with 10 mL NS. 22:10 Mosqueda cath inserted, using sterile technique, 16 Fr., by me, balloon inflated, to bm8 gravity drainage, urine specimen collected. Patient tolerated well. 22:12 Inserted saline lock: 20 gauge in left antecubital area, using aseptic technique. vk Flushed with 10 mL NS. 22:15 Lico Jaimes, RN is Primary Nurse. bm8 22:18 Triage completed. bm8 22:20 No provider procedures requiring assistance completed. Patient maintains SpO2 bm8 saturation greater than 95% on room air. 22:20 Patient has correct armband on for positive identification. Placed in gown. Bed in low bm8 position. Call light in reach. Side rails up X2. Adult w/ patient. Client placed on continuous cardiac and pulse oximetry monitoring. NIBP monitoring applied. front desk monitor on. Pulse ox on. NIBP on. Door closed. Noise minimized. Pillow given. Verbal reassurance given. Head of bed elevated. 23:42 Abdomen In Process Unspecified. EDMS 10/10 00:45 Assisted provider with central line placement. Set up central line tray. Triple lumen bm8 line placed in right femoral. Line placed by Joe DONNELLY Placement verified by blood return, Dressed with Tape, Tegaderm, Blood was collected. Patient tolerated well. Before procedure, did Practitioner(s) obtain informed consent? Yes. Patient \T\ family education about procedure, CLABSI prevention and S/S of infection? Yes. Time-out/Briefing performed prior to start of procedure? Yes. Was handwashing/sanitizing done immediately prior to procedure? Yes. Was patient positioned to in a way to prevent air embolism? Yes. Was procedure site sterilized? Yes, with chlorhexidine. Was the site allowed to dry? Yes. Was local anesthetic and/or sedation utilized? Yes. During the procedure, did the Practitioner(s) maintain a sterile field? Yes. Were unused ports clamped during insertion? Yes. Was blood aspirated from each lumen? Yes. After the procedure, did the Practitioner(s) clean the site and apply a sterile dressing? Yes. 01:22 Procedure consent explained by physician, signed by spouse. bm8 03:04 XRAY Foot LEFT 3 View In Process Unspecified. EDMS 03:54 Jimi Ann MD is Hospitalizing Provider. rn 04:33 Patient admitted, IV remains in place. bm8 04:33 Provided Education on: need for admission. bm8 Administered Medications: 10/09 22:23 Drug: NS 0.9% IV (30 ml/kg) 30 ml/kg IV at bolus once; Sepsis Protocol; to be given as bm8 a bolus over 90 minutes Route: IV; Rate: bolus; Site: left antecubital; 23:30 Follow up: Response: No adverse reaction; IV Status: Completed infusion bm8 22:47 Drug: Cefepime IVPB 1 grams IVPB at 200 ml/hr once over 30 mins; (mix in NS 100 mL) bm8 Route: IVPB; Rate: 200 ml/hr; Infused Over: 30 mins; Site: right antecubital; 10/10 01:24 Follow up: Response: No adverse reaction; IV Status: Completed infusion bm8 10/09 23:34 Drug: Norepinephrine IV 0.1 mcg/kg/min IV at calculated rate Per protocol; (Standard bm8 concentration 4 mg / 250 mL D5W); Recommended max rate 3 mcg/kg/min; Titrate 0.05 mcg/kg/min as often as every 5 minutes to achieve goal (see titration policy); Goal parameter MAP greater than 65 mmHg. {Note: medication has been titrated to 10mcg/min to meet MAP of 65 or greater.} Route: IV; Rate: calculated rate; Site: left antecubital; 10/10 02:18 Follow up: medication titratied to 5 mcg/min still currently meeting goal of 65 or bm8 greater MAP 02:37 Follow up: titrated down to 2.5mcg/min still meeting goal of 65 or greater MAP bm8 02:50 Follow up: medication titrated up to 5mcg/min due to not meeting BP/MAP goal bm8 05:11 Follow up: Response: No adverse reaction; IV Status: Infusion continued upon admission bm8 01:42 Drug: Acetaminophen AK Suppository 650 mg AK once Route: AK; bm8 02:34 Follow up: Response: No adverse reaction bm8 01:43 Not Given (pt unable to swallow pillss): [id number] mg PO once bm8 02:33 Drug: vancoMYCIN IVPB 1 grams IVPB once over 2 hrs Route: IVPB; Infused Over: 2 hrs; bm8 Site: left antecubital; 03:36 Follow up: Response: No adverse reaction; IV Status: Completed infusion bm8 Medication: 10/09 22:20 VIS not applicable for this client. bm8 Intake: Outcome: 10/10 03:54 Decision to Hospitalize by Provider. rn 05:12 Admitted to ER Hold. Please see [facility] for further documentation. bm8 05:12 Condition: stable 05:12 Instructed on follow up and referral plans. the need for admit, Demonstrated understanding of instructions, follow-up care, medications, 11:50 Patient left the ED. [email or web address] Signatures: Dispatcher [employer] EDKaren Spivey, RN Lorenzo Gomez MD MD rn Bryson, James, RN RN jb4 Emanuel Terrell RN RN jl7 Albina Grewal Brad, RN RN bm8 Corrections: (The following items were deleted from the chart) 01:24 10/09 23:34 Norepinephrine IV 6.577 mcg/min IV at calculated rate in left antecubital 8 [facility] [place] 10/10 05:13 10/09 21:35 BP 84 / 44; Pulse 97bpm; Resp 18bpm; Pulse Ox 98% RA; Temp 102.3F Axillary; bm8 65.77 kg; Pain 0/10, Adult; 8 10/10 16:36 12:31 Patient left the ED. alex [email or web address]
--- NOTE | 2024-10-10 03:55 | EDPHYS ---
Physician Documentation [facility] Name: Edda Mei Age: 69 yrs Sex: Female : 1955 Arrival Date: 10/09/2024 Time: 21:34 Bed 2 Private MD: ED Physician Lorenzo Wolff HPI: 10/09 21:44 This 69 yrs old Female presents to ER via Unassigned with complaints of fever. rn 21:44 EMS patient in for fever and generalized weakness. Has been reported single episode of rn vomiting. Patient denies focal pain. EMS reports 102 axillary temperature.. Historical: - Allergies: 21:35 AVOCADO (LAURUS PERSEA); jb4 - PMHx: 21:35 Hypertensive disorder; Hypercholesterolemia; Diabetes - IDDM; jb4 - PSHx: 21:35 cement on discs post fall; section; right foot; Cholecystectomy; jb4 - Immunization history:: Adult Immunizations unknown. - Infectious Disease History:: Denies. - Social history:: Smoking status: unknown. - History obtained from: EMS. ROS: 21:44 Unable to obtain ROS due to altered mental status, rn Exam: 21:44 Constitutional: This is a well developed, well nourished patient who is awake, alert, rn and in no acute distress. Cardiovascular: Tachycardic, regular. Respiratory: Mild tachypnea Abdomen/GI: Soft, nontender Skin: No evidence of cellulitis, open wound to bottom of left foot with tissue paper in it and hair. MS/ Extremity: Pulses equal, no cyanosis. Neurovascular intact. Full, normal range of motion. Equal circumference. Neuro: Awake, alert, answering questions, oriented to person but not place or time. Moves all 4 extremities but weak all over. 10/10 01:00 ECG was reviewed by the Attending Physician. rn Vital Signs: 10/09 21:35 BP 84 / 44; Pulse 97; Resp 18; Temp 102.3(A); Pulse Ox 98% on R/A; Weight 65.77 kg; bm8 Pain 0/10; 22:20 BP 78 / 41; Pulse 98; Resp 16; Temp 102.3; Pulse Ox 100% ; Pain 0/10; bm8 23:35 BP 70 / 42; Pulse 86; Resp 18; Temp 99.2(A); Pulse Ox 92% ; Pain 0/10; bm8 23:55 BP 131 / 52; Pulse 101; Resp 18; Temp 99.9; Pulse Ox 100% on 2 lpm NC; Pain 0/10; bm8 10/10 00:15 BP 134 / 61; Pulse 102; Resp 20; Temp 99.9; Pulse Ox 100% ; Pain 0/10; bm8 00:30 BP 127 / 53; Pulse 103; Resp 20; Temp 99.9; Pulse Ox 100% on 2 lpm NC; Pain 0/10; bm8 00:49 BP 129 / 53; Pulse 102; rn 01:00 BP 118 / 049; Pulse 102; Resp 20; Temp 99.9; Pulse Ox 99% ; Pain 0/10; bm8 01:07 BP 118 / 49; rn 02:19 BP 131 / 74; Pulse 95; Resp 16; Pulse Ox 100% on 2 lpm NC; Pain 0/10; bm8 02:35 BP 114 / 55; Pulse 94; Resp 17; Temp 99.7; Pulse Ox 100% on 2 lpm NC; Pain 0/10; bm8 02:51 BP 96 / 49; Pulse 94; Resp 18; Temp 99.6; Pulse Ox 96% ; Pain 0/10; bm8 03:34 BP 114 / 56; Pulse 93; Resp 16; Temp 99; Pulse Ox 100% on 2 lpm NC; Pain 0/10; bm8 04:33 BP 118 / 55; Pulse 91; Resp 17; Temp 99; Pulse Ox 100% ; Pain 0/10; bm8 05:10 BP 124 / 53; Pulse 92; Resp 18; Temp 99.4; Pulse Ox 100% on 2 lpm NC; Pain 0/10; bm8 10/09 21:35 Pain Scale: Adult bm8 22:20 Pain Scale: Adult bm8 23:35 Pain Scale: Adult bm8 23:55 Pain Scale: Adult bm8 10/10 00:15 Pain Scale: Adult bm8 00:30 Pain Scale: Adult bm8 01:00 Pain Scale: Adult bm8 02:19 Pain Scale: Adult bm8 02:35 Pain Scale: Adult bm8 02:51 Pain Scale: Adult bm8 03:34 Pain Scale: Adult bm8 04:33 Pain Scale: Adult bm8 05:10 Pain Scale: Adult bm8 [place] Coma Score: 07/15 22:20 Eye Response: spontaneous(4). Motor Response: obeys commands(6). Verbal Response: bm8 oriented(5). Total: 15. 10/10 00:15 Eye Response: spontaneous(4). Motor Response: obeys commands(6). Verbal Response: bm8 confused(4). Total: 14. 01:00 Eye Response: spontaneous(4). Motor Response: obeys commands(6). Verbal Response: bm8 confused(4). Total: 14. 02:19 Eye Response: to voice(3). Motor Response: obeys commands(6). Verbal Response: bm8 confused(4). Total: 13. 02:35 Eye Response: spontaneous(4). Motor Response: obeys commands(6). Verbal Response: bm8 confused(4). Total: 14. 03:34 Eye Response: to voice(3). Motor Response: obeys commands(6). Verbal Response: bm8 confused(4). Total: 13. 04:33 Eye Response: to voice(3). Motor Response: obeys commands(6). Verbal Response: bm8 confused(4). Total: 13. 05:10 Eye Response: to voice(3). Motor Response: obeys commands(6). Verbal Response: bm8 oriented(5). Total: 14. Procedures: 03:54 Central Line: the site was prepped with Betadine, in sterile fashion, a triple lumen rn catheter was inserted, in the right femoral vein, in 1 attempts. placement was verified, by blood return, the site was dressed with Tegaderm, using sterile technique, the patient tolerated the procedure, well. MDM: 10/09 21:35 Medical Screening Exam initiated rn 10/10 00:49 ED course: Central line attempted by CONY Avelar, unable to obtain so I placed it rn under ultrasound guidance, singlestick, blood obtained, flushed, tolerated well.. 00:50 ED course: Blood pressure up to 120/60. Blood pressure did not really respond to 30/kg rn bolus so Levophed started. Central line placed. Patient doing much better, improved mental status, decreased temperature and improved blood pressure. Sepsis reevaluation completed.. 03:53 Differential diagnosis: viral Infection, bacterial infection, pneumonia UTI. Data rn reviewed: vital signs, nurses notes, lab test result(s), radiologic studies, CT scan, plain films, and as a result, I will admit patient. Consideration of Admission/Observation Patient was admitted/placed on observation. Escalation of care including admission/observation considered. Counseling: I had a detailed discussion with the patient and/or guardian regarding the historical points, exam findings, and any diagnostic results supporting the discharge/admit diagnosis, lab results, radiology results, the need for further work-up and treatment in the hospital. Response to treatment: the patient's symptoms have mildly improved after treatment, and as a result, I will admit patient. 10/09 21:36 Order name: BNP; Complete Time: 23: 10/09 21:36 Order name: Blood Culture Adult (2) 10/09 21:36 Order name: CBC with Diff; Complete Time: 01:41 10/09 21:36 Order name: CMP; Complete Time: 23: 10/09 21:36 Order name: Lactate w/ 2H reflex if indic.; Complete Time: :41 10/09 21:36 Order name: Protime (+inr); Complete Time: 22:50 10/09 21:36 Order name: Ptt, Activated; Complete Time: 22:50 10/09 21:36 Order name: Troponin HS; Complete Time: 23:07 10/09 21:36 Order name: UA Rfx Ryan Cult if indicated; Complete Time: 23:07 10/09 21:57 Order name: Glucose, Ancillary Testing; Complete Time: 22:13 [facility] 10/09 22:56 Order name: Urine Culture [facility] 10/09 23:04 Order name: Manual Differential; Complete Time: 01:41 [facility] 10/09 23:17 Order name: Ghost Lactate-NO COLLECT Timer; Complete Time: 01:41 [facility] 10/10 02:05 Order name: Lactate Sepsis 2 HR Follow-up; Complete Time: 02:24 [facility] 10/10 02:29 Order name: Wound Culture 10/10 04:19 Order name: CBC with Automated Diff [facility] 10/10 04:19 Order name: CBC with Automated Diff [facility] 10/10 04:19 Order name: Comprehensive Metabolic Panel [facility] 10/10 04:19 Order name: Comprehensive Metabolic Panel [facility] 10/10 04:19 Order name: Troponin High Sensitivity EDMS 10/10 04:19 Order name: Troponin High Sensitivity EDMS 10/10 04:19 Order name: Troponin High Sensitivity EDMS 10/10 04:19 Order name: Troponin High Sensitivity EDMS 10/10 04:19 Order name: Troponin High Sensitivity EDMS 10/10 04:19 Order name: Troponin High Sensitivity EDMS 10/10 05:49 Order name: ABG Arterial Blood Gas EDMS 10/10 06:14 Order name: Hemoglobin A1c EDMS 10/10 06:17 Order name: Basic Metabolic Panel EDMS 10/10 06:17 Order name: Phosphorus EDMS 10/10 06:17 Order name: Lipid Profile EDMS 10/10 06:17 Order name: Magnesium EDMS 10/10 06:36 Order name: CBC without Diff EDMS 10/10 06:52 Order name: Liver (Hepatic) Function EDMS 10/10 06:52 Order name: Creatine Phosphokinase EDMS 10/10 06:52 Order name: Troponin High Sensitivity EDMS 10/10 09:45 Order name: Manual Differential EDMS 10/10 11:10 Order name: Glucose, Ancillary Testing EDMS 10/10 11:16 Order name: Gram Stain--Aerobic Bottle EDMS 10/10 11:16 Order name: Gram Stain--Anaerobic Bottle EDMS 10/10 11:20 Order name: Gram Stain--Aerobic Bottle EDMS 10/10 11:20 Order name: Gram Stain--Anaerobic Bottle EDMS 10/10 11:28 Order name: Troponin High Sensitivity EDMS 10/10 11:30 Order name: PTT, Activated Partial Thromb EDMS 10/09 21:36 Order name: Chest Single View XRAY; Complete Time: 22:29 rn 10/09 23:42 Order name: Abdomen EDMS 10/10 02:24 Order name: XRAY Foot LEFT 3 View rn 10/10 04:20 Order name: Echo with Doppler EDMS 10/09 21:36 Order name: Accucheck; Complete Time: 22:10 rn 10/09 21:36 Order name: Cardiac monitoring; Complete Time: 22:10 rn 10/09 21:36 Order name: Cath; Complete Time: 22:10 rn 10/09 21:36 Order name: EKG - Nurse/Tech; Complete Time: 22:10 rn 10/09 21:36 Order name: IV Saline Lock - Large Bore; Complete Time: 22:10 rn 10/09 21:36 Order name: Labs collected and sent; Complete Time: 22:10 rn 10/09 21:36 Order name: O2 Per Protocol; Complete Time: 22:10 rn 10/09 21:36 Order name: O2 Sat Monitoring; Complete Time: 22:10 rn 10/09 21:36 Order name: Vital Signs; Complete Time: 22:10 rn EC:00 Rate is 96 beats/min. Rhythm is regular. QRS [place] is Normal. MD interval is normal. QRS rn interval is normal. QT interval is normal. No Q waves. T waves are Normal. No ST changes noted. Clinical impression: Normal ECG. Interpreted by me. Reviewed by me. Administered Medications: 10/09 22:23 Drug: NS 0.9% IV (30 ml/kg) 30 ml/kg IV at bolus once; Sepsis Protocol; to be given as bm8 a bolus over 90 minutes Route: IV; Rate: bolus; Site: left antecubital; 23:30 Follow up: Response: No adverse reaction; IV Status: Completed infusion bm8 22:47 Drug: Cefepime IVPB 1 grams IVPB at 200 ml/hr once over 30 mins; (mix in NS 100 mL) bm8 Route: IVPB; Rate: 200 ml/hr; Infused Over: 30 mins; Site: right antecubital; 10/10 01:24 Follow up: Response: No adverse reaction; IV Status: Completed infusion bm8 10/09 23:34 Drug: Norepinephrine IV 0.1 mcg/kg/min IV at calculated rate Per protocol; (Standard bm8 concentration 4 mg / 250 mL D5W); Recommended max rate 3 mcg/kg/min; Titrate 0.05 mcg/kg/min as often as every 5 minutes to achieve goal (see titration policy); Goal parameter MAP greater than 65 mmHg. {Note: medication has been titrated to 10mcg/min to meet MAP of 65 or greater.} Route: IV; Rate: calculated rate; Site: left antecubital; 10/10 02:18 Follow up: medication titratied to 5 mcg/min still currently meeting goal of 65 or bm8 greater MAP 02:37 Follow up: titrated down to 2.5mcg/min still meeting goal of 65 or greater MAP bm8 02:50 Follow up: medication titrated up to 5mcg/min due to not meeting BP/MAP goal bm8 05:11 Follow up: Response: No adverse reaction; IV Status: Infusion continued upon admission bm8 01:42 Drug: Acetaminophen MD Suppository 650 mg MD once Route: MD; bm8 02:34 Follow up: Response: No adverse reaction bm8 01:43 Not Given (pt unable to swallow pillss): [id number] mg PO once bm8 02:33 Drug: vancoMYCIN IVPB 1 grams IVPB once over 2 hrs Route: IVPB; Infused Over: 2 hrs; bm8 Site: left antecubital; 03:36 Follow up: Response: No adverse reaction; IV Status: Completed infusion bm8 Disposition Summary: 10/10/24 03:54 Hospitalization Ordered Notes: Hospitalization Status: Inpatient Admission rn Provider: Jimi Ann rn Condition: Stable rn Problem: new rn Symptoms: have improved rn Bed/Room Type: Standard rn Location: Intensive Care Unit(10/10/24 11:31) Room Assignment: 1-(10/10/24 11:31) iw Diagnosis - Severe sepsis with septic shock rn - Pyelonephritis acute rn - Altered mental status, unspecified rn Forms: - Medication Reconciliation Form rn - SBAR form rn - Leadership Thank You Letter internet e commerce specialist time excluding procedures: 03:53 Critical care time: Bedside Care: 30 minutes, Consultation: 5 minutes. Total time: 35 rn minutes Signatures: Dispatcher [employer] Karen Flynn RN RN iw Lorenzo Wolff MD MD rn Attema, Lee, LEAD ACCOUNTANT-C LEAD ACCOUNTANT-Cla1 Thomas Galindo RN RN jb4 Lico Jaimes RN RN bm8 Corrections: (The following items were deleted from the chart) 10/09 21:37 21:37 PROBNP+C.LAB.BRZ ordered. EDMS EDMS 21:37 21:37 BLOOD CULTURE*+BA.LAB.BRZ ordered. EDMS EDMS 21:37 21:37 CBC+H.LAB.BRZ ordered. EDMS EDMS 21:37 21:37 COMPREHENSIVE METABOLIC PANEL+C.LAB.BRZ ordered. EDMS EDMS 21:37 21:37 LACTATE+C.LAB.BRZ ordered. EDMS EDMS 21:37 21:37 PROTIME (+INR)+COAG.LAB.BRZ ordered. EDMS EDMS 21: 21:37 PTT, ACTIVATED+COAG.LAB.BRZ ordered. EDMS EDMS 21:37 21:37 Troponin High Sensitivity+C.LAB.BRZ ordered. EDMS EDMS 21: 21:37 UA Rfx Ryan Cult if indicated+U.LAB.BRZ ordered. EDMS EDMS 21:37 21:37 Chest Single View+RAD.RAD.BRZ ordered. EDMS EDMS 21:37 21:37 Abdomen Pelvis W Con+CT.RAD.BRZ ordered. EDMS EDNJ 10/10 02:24 07 21:44 Constitutional: This is a well developed, well nourished patient who is rn awake, alert, and in no acute distress. Cardiovascular: Tachycardic, regular. Respiratory: Mild tachypnea Abdomen/GI: Soft, nontender Skin: No evidence of cellulitis MS/ Extremity: Pulses equal, no cyanosis. Neurovascular intact. Full, normal range of motion. Equal circumference. Neuro: Awake, alert, answering questions, oriented to person but not place or time. Moves all 4 extremities but weak all over. rn 10/10 02:30 02:30 Wound Culture+BA.LAB.BRZ ordered. EDNJ EDMS 07:24 03:54 Intensive Care Unit rn iw 07: 03:54 rn iw : 07:24 BR ER HOLD iw iw 07:24 ERHOLD- iw
--- NOTE | 2024-10-10 04:12 | RAD REPORT ---
EXAM DESCRIPTION: Abdomen Pelvis Wo Contrast CLINICAL HISTORY: fever, vomiting COMPARISON: 09/07/2024 TECHNIQUE: CT of the abdomen and pelvis without IV contrast. Evaluation of the solid organs and vascu lature is suboptimal due to lack of IV contrast. This exam was performed according to our departmental dose-optimization program, which includes automated exposure control, adjustment of the mA and/or kV according to patient size and/or use of iterative reconstruction technique. FINDINGS: Artifact from patient's upper extremities and vertebroplasty changes in the thoracolumbar s pine. Lung Bases: Mild basilar opacities probably due to atelectasis. Abdomen: Liver: Liver is enlarged. Normal contour. Homogeneous parenchyma. No obvious mass within the limitati ons of noncontrast technique. Gallbladder: Surgically absent. Spleen, Pancreas, and Adrenal Glands: Stable right adrenal nodule measuring 2.3 x 1.9 cm, most sugg estive of a benign lipid rich adenoma. Left adrenal gland is normal. Spleen and pancreas are unremarkable. Kidneys: Moderate right hydronephrosis and hydroureter. No distal obstructing calculus is identified. There is bilateral perinephric fat stranding, more pronounced on the right. Bilateral calcifications are favored to be vascular, though cannot exclude small nonobstructing renal calculi b ilaterally. No left hydronephrosis. Vasculature: The aorta and IVC have normal caliber and position. Extensive calcified plaque through out the abdominal aorta and branches. Stomach: The stomach and duodenum have normal course. Pelvis: Bowel: No bowel obstruction. Moderate stool in the colon. There is some mild wall thickening at the level of the rectum. Ascending colon is under distended. Appendix: Normal appendix. Bladder: Decompressed by Mosqueda catheter. Reproductive: No suspicious mass. Other: No free intraperitoneal air. No free fluid or lymphadenopathy. Bones: No destructive bone lesions identified. Stable vertebroplasty changes at T12 and L1. Stable co mpression fractures at L2 and L3. IMPRESSION: 1. Moderate right hydronephrosis and hydroureter. No distal obstructing calculus is identified. The re is bilateral perinephric fat stranding, more pronounced on the right. Findings could be due to recently passed calculus or infection. 2. Mild wall thickening at the level of the rectum. This could be due to underdistention or proctit is. 3. Hepatomegaly. Electronically signed by: Tori Avendano MD 10/10/2024 03:45 AM CDT RP Transcribed Date/Time: 10/10/2024 4:11 AM
[2024-10-10] MEDS ORDERED: ACETAMINOPHEN 325 MG TABLET PO PRN (04:14)
--- NOTE | 2024-10-10 04:14 | P.HP ---
Certification for Inpatient Patient admitted to: Inpatient With expected LOS: >2 Midnights Practitioner: I am a practitioner with admitting privileges, knowledge of patient current condition, hospital course, and medical plan of care. Services: Services provided to patient in accordance with Admission requirements found in Title 42 Section 412.3 of the Code of Federal Regulations Patient History Date of Service: 10/10/24 Reason for admission: Pyelonephritis History of Present Illness: 69 yrs old Female with past medical history of diabetes, hypertension, hyperlipidemia who presented to the ER with fever and chills and generalized weakness which has been going on for the last 3 days and has been progressively getting worse. Associated with intractable nausea and vomiting. Denies any chest pain or shortness of breath. Also complains of abdominal discomfort and constipation. Patient is a poor historian hence most of the history is obtained from the chart review and also talking to the ER physician and family member at the bedside. Complains of bilateral flank pain as well. Denies any chest discomfort.. Patient was assessed in the ER and is admitted for further management of pyelonephritis, metabolic acidosis, septic shock, and NSTEMI Allergies avocado Allergy (Mild, Verified 01/06/15 11:38) Itching/Hives/Rash No Known Allergies Allergy (Uncoded 04/18/16 06:57) Unknown Home medications list reviewed: Yes Home Medications: Insulin Glargine Human [Lantus*] 35 unit SQ DAILY 06/04/12 Insulin Aspart [Novolog Flexpen] 12 unit SQ BIDWM 10/10/14 - Past Medical/Surgical History Diabetic: Yes Past Medical History: Reviewed- Non-Contributory -: DM -: HTN Past Surgical History: Reviewed- Non-Contributory -: Cholecystectomy -: C section - Social History Smoking Status: Never smoker Alcohol use: No CD- Drugs: No Caffeine use: Yes Review of Systems 10-point ROS is otherwise unremarkable Other: Constitutional: Reports: generalized weakness. Skin: Denies: rash. Allergy/Immun: Denies: rhinorrhea, sneezing. Eyes: Denies: visual loss/blurred. ENT: Denies: earache, nasal congestion. Respiratory: Denies: non productive cough. Cardiovascular: Denies: chest pain, palpitations. GI: Denies: diarrhea, nausea. : Denies: dysuria. Musculoskeletal: Reports: arthritis. Denies: extremity pain. Heme: Denies: bleeding. Endocrine: Denies: polydipsia. Neuro: Reports: dizziness, gait problem, lightheaded, spinning sensation. Psych: Reports: anxiety. All systems rev & neg: except as noted Physical Examination - Vital Signs Temperature: 100.1 F Blood Pressure: 98/68 Pulse: 78 Respirations: 18 Pulse Ox (%): 94 - Physical Exam General: Alert, Moderate distress, Other (Lethargic) HEENT: Atraumatic, Normocephalic Neck: Supple Respiratory: Clear to auscultation bilaterally, Normal air movement Cardiovascular: Regular rate/rhythm, Normal S1 S2 Capillary refill: <2 Seconds Gastrointestinal: Soft and benign, W/out hepatosplenomegaly Musculoskeletal: No clubbing, No swelling Integumentary: No rashes, Tenderness/swelling, Erythema Neurological: Other (Alert awake nonfocal) Lymphatics: No axilla or inguinal lymphadenopathy - Studies Laboratory Data (last 24 hrs) 10/09/24 10/09/24 10/09/24 21:49 21:49 21:49 WBC 18.30 H Hgb 8.6 L Hct 26.5 L Plt Count 452 H PT 14.6 H INR 1.30 APTT 24.4 L Sodium 129 L Potassium 3.7 BUN 65 H Creatinine 3.61 H Glucose 420 H* Total Bilirubin 0.3 AST 18 ALT 15 Alkaline Phosphatase 148 H Assessment and Plan - Plan Septic shock On Levophed Aggressive hydration Started on empirical antibiotics Possible sources pyelonephritis/wound left foot Obtain cultures Trend lactic acid levels Change antibiotic as per sensitivity NSTEMI possibly type II due to sepsis Will trend cardiac enzymes Will monitor telemetry Started on aspirin and statin EKG did not show any acute changes suggestive of ischemia Patient denies any chest pain Will get an echocardiogram Cardiology consult Uncontrolled diabetes with hyperglycemia Insulin sliding scale Accu-Chek before every meal and at bedtime Anion gap monitored Will get an ABG IV hydration aggressively Oxygen supplementation Will monitor BMP every 4 hours Accu-Chek q. hourly Anion gap at the time of admission is 15.7 Will monitor anion gap Electrolytes monitor and replace accordingly Leukocytosis UTI Started on IV antibiotic Monitor cultures Acute kidney injury Monitor renal parameters Electrolytes monitor and replace accordingly Left foot wound Antibiotics continued Will get an x-ray of the left foot Surgical consult GI/DVT prophylaxis Advanced directive full code Discharge Plan: Home Plan to discharge in: 48 Hours - Advance Directives Does patient have a Living Will: No Does patient have a Durable POA for Healthcare: No - Code Status/Comfort Care Code Status: Full Code Time Spent Managing Pts Care (In Minutes): 48
[2024-10-10] MEDS: NA CHLORIDE 0.9% 1,000 ML IV SCH (05:00)
[2024-10-10] MEDS ORDERED: NA CHLORIDE 0.9% 1,000 ML ONE (05:04)
[2024-10-10 05:44] LABS: Arterial Blood Carboxyhemoglob 1.1 % (0.0-1.5); Blood Gas Inspired Oxygen 28.0 %; Blood Gas Oxyhemoglobin 77.6 % (94.0-97.0)
[2024-10-10 05:49] LABS: Blood O2 Saturation 80.6 % (92.0-98.5)
--- NOTE | 2024-10-10 06:01 | RAD REPORT ---
CLINICAL HISTORY: Wound. COMPARISON: None. TECHNIQUE: XR FOOT 3 OR MORE VIEWS LEFT 10/10/2024 2:24 AM CDT FINDINGS: There is no fracture. There are extensive degenerative changes throughout the Lisfranc joint. There i s pes planus. There is a possible plantar ulceration at the level of the mid foot. Soft tissues are unremarkable. IMPRESSION: No acute osseous findings. Electronically signed by: Edwin Delvalle MD 10/10/2024 05:30 AM CDT RP Due to temporary technical issues with the PACS/Lagiar reporting system, reports are being alma d by the in-house radiologist without review as a courtesy to ensure prompt reporting the interpreting radiologist is fully responsible for the content of the report. Transcribed Date/Time: 10/10/2024 6:01 AM
[2024-10-10 06:15] LABS: Anion Gap 13.3 mEq/L (5.0-15.0); BUN Blood Urea Nitrogen 70.0 mg/dL (7-18); HDL Cholesterol 46.0 mg/dL (40-60); LDL Cholesterol, Calculated 15.0 mg/dL (<130); LDL Cholesterol,Calc NonReport 15.0; Magnesium 1.8 mg/dL (1.6-2.4); Potassium 4.3 mEq/L (3.5-5.1)
[2024-10-10 06:17] LABS: Glucose Level 415.0 mg/dL (74-106)
[2024-10-10 06:33] LABS: Hematocrit 24.9 % (36.0-45.0); Hemoglobin 8.3 g/dL (12.0-15.0); MCH 28.7 pg (27.0-35.0); MCHC 33.1 g/dL (32.0-36.0); MCV 86.8 fL (80-100); MPV 8.6 fL (7.6-11.3); RBC Red Blood Cell Count 2.87 M/uL (3.86-4.86); White Blood Count 30.30 thou/uL (4.3-10.9)
[2024-10-10 06:48] LABS: ALT/SGPT 21 U/L (13-56); AST/SGOT 37 U/L (15-37); Albumin 2.4 g/dL (3.4-5.0); Albumin/Globulin Ratio 0.5 (1.1-1.8); Alkaline Phosphatase 128 U/L (45-117); Globulin 4.7 g/dL (2.3-3.5)
[2024-10-10 06:52] LABS: Bilirubin Indirect, Calculated 0.1 mg/dL (0.2-0.8); Troponin High Sensitivity 1709.1 pg/mL (<58.9)
[2024-10-10] MEDS ORDERED: HEPARIN/D5W 25,000 UNIT/500 ML BAG IV ONE (07:13)
[2024-10-10] MEDS ORDERED: HEPARIN 5000 UNIT/ML 1 ML VIAL ONE (07:13)
[2024-10-10] MEDS: HEPARIN/D5W 25,000 UNIT/500 ML BAG IV SCH (07:15)
[2024-10-10] MEDS ORDERED: VANCOMYCIN 500 MG in NA CHLORIDE 0.9% 100 ML IVPB ONE (07:15)
[2024-10-10] MEDS: NOREPINEPHRINE 4 MG in D5W 250 ML IV SCH (07:45)
[2024-10-10] MEDS: FENTANYL CITR 100 MCG/2 ML IV PRN (08:45)
[2024-10-10] MEDS: MAGNESIUM SULFATE 1 gm IVPB 1 GM/100 ML BAG IV ONE (08:57)
[2024-10-10] MEDS ORDERED: CEFEPIME 1 GM in NA CHLORIDE 0.9% 100 ML IV SCH ×2 (09:00→22:00)
[2024-10-10] MEDS ORDERED: PIPER TAZO 3.375 GM in NA CHLORIDE 0.9% 100 ML IV SCH (09:00)
[2024-10-10] MEDS ORDERED: PIPER TAZO 2.25 GM in NA CHLORIDE 0.9% 50 ML IV SCH (09:00)
[2024-10-10] MEDS ORDERED: MAGNESIUM SULFATE 1 gm IVPB 1 GM/100 ML BAG IV ONE (09:11)
[2024-10-10 09:45] LABS: Blood Morphology Comment NOT SEEN (NOT SEEN); Differential Total Cells Count 100; Segmented Neutrophils 83 % (40-80)
[2024-10-10] MEDS ORDERED: INSULIN REGULAR (HUMAN) 100 UNIT/ML ONE (11:50)
[2024-10-10] MEDS: INSULIN REGULAR (HUMAN) 100 UNIT/ML SQ SCH (12:00)
[2024-10-10] MEDS: PNEUMOCOCCAL VACCINE 0.5 ML IMVAC ONE (13:00)
[2024-10-10 13:30] LABS: ALT/SGPT 19.0 U/L (13-56); AST/SGOT 32.0 U/L (15-37); Albumin 2.1 g/dL (3.4-5.0); Albumin/Globulin Ratio 0.5 (1.1-1.8); Alkaline Phosphatase 122.0 U/L (45-117); Anion Gap 12.9 mEq/L (5.0-15.0); BUN Blood Urea Nitrogen 74.0 mg/dL (7-18); Globulin 4.5 g/dL (2.3-3.5); Potassium 3.9 mEq/L (3.5-5.1)
[2024-10-10 13:35] LABS: Glucose Level 457.0 mg/dL (74-106)
[2024-10-10] MEDS ORDERED: D50W 25 GM/50 ML SYRINGE IV PRN (13:45)
[2024-10-10] MEDS ORDERED: GLUCAGON 1 MG/VIAL IM PRN (13:45)
[2024-10-10] MEDS: NOREPINEPHRINE BITARTRATE/D5W 4 MG/250 ML KIT IV ONE (13:55)
--- NOTE | 2024-10-10 13:57 | P.PN ---
Date of Service: 10/10/24 Subjective: Oriented x 1 Complains of abdominal pain Still hypotensive on Levophed Family bedside ROS: 10 point ROS as noted above, otherwise negative Physical exam GEN: Alert, oriented x 1, NAD HEENT: Normal conjunctiva, sclera anicteric CV: Regular rate and rhythm, no edema Pulm: Nonlabored respirations on room air ABD: Soft, nontender, nondistended MSK: No joint tenderness Integumentary: No rashes Neuro: Normal speech, normal affect Vitals reviewed Assessment: Septic shock secondary to pyelonephritis Gram-negative bacteremia Metabolic encephalopathy secondary to above Acute kidney injury Diabetes mellitus type 2insulin-dependent with noncompliance, hyperglycemia NSTEMI Plan: Septic shock secondary to pyelonephritis Gram-negative bacteremia Metabolic encephalopathy secondary to above Acute kidney injury Blood cultures obtained in ED, preliminarily positive with all 4 bottles gram- negative rods On Levophed for persistent hypotension secondary to septic shock Wean Levophed as tolerated, continue IV fluids Continue meropenem, vancomycin at this time Continue ICU level of care Monitor renal function closely, nephrology consulted Will obtain CT of the head to rule out other causes of AMS Diabetes mellitus type 2insulin-dependent with noncompliance, hyperglycemia Persistent severe hyperglycemia Will start insulin drip to gain tighter control of glucose Hourly Accu-Chek for now until able to come off of the insulin drip NSTEMI Continue heparin drip Obtain echocardiogram, cardiology consulted No active chest pain/family denies her recently complaining of chest pain Likely demand ischemia secondary to septic shock Appreciate further input from cardiology DVT PPX: Heparin drip Code status: Full code Time Spent Managing Pts Care (In Minutes): 35
[2024-10-10] MEDS: BISACODYL 10 MG RECTAL SUPP PR ONE (14:00)
--- NOTE | 2024-10-10 14:46 | RAD REPORT ---
EXAMINATION: Head Brain Wo Cont CLINICAL INDICATION: Female, 69 years old.AMS TECHNIQUE: Axial CT images from the skull base to the vertex without intravenous contrast. Coronal an d sagittal reformatted images were created from the data set. One or more of the following dose reduction techniques were used: Automated exposure control, adjustment of the mA and/or kV according to patient size, and/or iterative reconstruction. Unless otherwise specified, incidental findings do not require dedicated imaging follow-up. [id number]. COMPARISON: 05/21/2024 FINDINGS: INTRACRANIAL: No acute intracranial hemorrhage. No acute large vascular territory infarct. No hydroce phalus. No mass effect or midline shift. Moderate chronic small vessel ischemic changes.Mild cerebral atrophy. Cavum septum pellucidum VASCULATURE: No visualized abnormalities in the arteries or dural venous sinuses. SCALP/SKULL: No calvarial fracture identified. No acute soft tissue abnormality. SINUSES: The visualized paranasal sinuses are mostly clear. No significant mastoid fluid. IMPRESSION: No acute intracranial abnormality.
[2024-10-10] MEDS: INSULIN REGULAR, HUMAN 100 UNIT in NA CHLORIDE 0.9% 100 ML IV SCH (15:02)
--- NOTE | 2024-10-10 15:29 | CON ---
Date of Consultation: 10/10/2024 Reason For Consultation: Weakness, poor oral intake. Acute kidney injury. History Of Present Illness: The patient is a poor historian. History mainly obtained from the chart and the daughter at the bedside. This is a 69-year-old woman with past medical history of diabetes mellitus, hypertension, hyperlipidemia. The patient presented to the emergency room complaining of w eakness and fever. As per daughter, her symptoms started more than 3 days ago and it got really wors e yesterday. She reported poor oral intake. The patient upon presentation to the ER, her creatinine was significantly elevated to 3.5. Her baseline creatinine was 1 last month. The patient was admit celia for further evaluation. Past Medical History: Diabetes, hypertension, hyperlipidemia. Past Surgical History: Cholecystectomy, . Family History: Noncontributory. Allergies: NO KNOWN DRUG ALLERGIES. Review of Systems: Unable to provide at this time. Social History: No known history of tobacco or recreational drug abuse. Physical Examination: Vital Signs: Temperature 100.1, pulse rate 78, blood pressure 98/68. General: Lethargic, not in distress. Neck: Supple. No elevated JVD. Heart: Regular rhythm. Normal S1, S2. Chest: Clear to auscultation bilaterally. No rales or wheezes. Abdomen: Soft, nontender. Has a Mosqueda catheter. Extremities: No edema. Laboratory Data: Sodium 129, potassium 3.9, BUN 74, creatinine 3.5, white count 30,000. Assessment And Plan: 1. Acute kidney injury. Baseline creatinine 1. Acute kidney injury, likely due to ischemic ATN and dehydration plus obstructive uropathy. Continue IV fluids. Keep MAP more than 60. Renal dose medic ation. Avoid NSAID and contrast. Continue Mosqueda. Patient is nonoliguric. 2. Right hydronephrosis. CT scan showed no calculi, possibly due to passing calculi consistent with pyelonephritis. Continue Mosqueda catheter for IV fluid. We will consider to repeat renal ultrasound a s an outpatient. We will repeat ultrasound in 2 days to monitor for resolution of the hydronephrosis . 3. Pyelonephritis, acute. 4. Septic shock, possibly due to pyelonephritis. Continue antibiotic. Monitor cultures. Keep MAP m ore than 65. 5. Pseudohyponatremia on blood sugar control. 6. Diabetes mellitus. Continue insulin. Thanks for allowing me to participate in the patient's care. Total time spent 75 minutes, including documentation, reviewing labs, and placing orders. BREANN Voice ID: [id number] Report ID: [id number]
[2024-10-10 16:35] LABS: Anion Gap 13.6 mEq/L (5.0-15.0); BUN Blood Urea Nitrogen 79.0 mg/dL (7-18); Glucose Level 341.0 mg/dL (74-106); Potassium 3.6 mEq/L (3.5-5.1)
[2024-10-10 19:46] LABS: Anion Gap 13.4 mEq/L (5.0-15.0); BUN Blood Urea Nitrogen 74.0 mg/dL (7-18); Glucose Level 201.0 mg/dL (74-106); Potassium 3.4 mEq/L (3.5-5.1)
[2024-10-10] MEDS: D5 0.45 NS 1,000 ML IV SCH (19:50)
[2024-10-10] MEDS: Meropenem 1,000 MG in NA CHLORIDE 0.9% 100 ML IV SCH (21:00)
[2024-10-10] MEDS: KCL 20 MEQ/100 mL IVPB 20 MEQ/100 ML BAG IV SCH (23:09)
[2024-10-10 23:58] LABS: Anion Gap 13.7 mEq/L (5.0-15.0); BUN Blood Urea Nitrogen 76.0 mg/dL (7-18); Glucose Level 178.0 mg/dL (74-106); Potassium 3.7 mEq/L (3.5-5.1)
[2024-10-11] MEDS ORDERED: HYDROMORPHONE HCL 1 MG/ML INJ IV PRN (00:14)
[2024-10-11] MEDS ORDERED: GLUCAGON 1 MG/VIAL IM PRN ×4 (01:09→17:05)
[2024-10-11] MEDS ORDERED: D50W 25 GM/50 ML SYRINGE IV PRN (01:09)
[2024-10-11] MEDS: INSULIN GLARGINE 100 UNIT/ML SQ ONE (01:52)
[2024-10-11] MEDS: NOREPINEPHRINE BITARTRATE/D5W 4 MG/250 ML BAG IV SCH ×2 (01:54→09:05)
[2024-10-11] MEDS: INSULIN REGULAR (HUMAN) 100 UNIT/ML SQ SCH ×2 (02:00→17:14)
[2024-10-11] MEDS ORDERED: INSULIN REGULAR, HUMAN 100 UNIT in NA CHLORIDE 0.9% 100 ML IV SCH (02:00)
[2024-10-11] MEDS: VANCOMYCIN 1 GM in NA CHLORIDE 0.9% 250 ML IVPB SCH (05:07)
[2024-10-11 05:20] LABS: Absolute Lymphocytes (CBC) 0.8 K/uL (0.7-4.9); Hematocrit 23.6 % (36.0-45.0); Hemoglobin 8.0 g/dL (12.0-15.0); MCH 29.4 pg (27.0-35.0); MCHC 34.0 g/dL (32.0-36.0); MCV 86.4 fL (80-100); MPV 8.4 fL (7.6-11.3); Nucleated RBC Absolute Count 0.0 (0-0); Nucleated Red Blood Cells % 0.0 % (0-0); RBC Red Blood Cell Count 2.74 M/uL (3.86-4.86)
[2024-10-11 05:21] LABS: White Blood Count 20.80 thou/uL (4.3-10.9)
[2024-10-11 05:38] LABS: ALT/SGPT 22.0 U/L (13-56); AST/SGOT 38.0 U/L (15-37); Albumin 2.0 g/dL (3.4-5.0); Albumin/Globulin Ratio 0.4 (1.1-1.8); Alkaline Phosphatase 174.0 U/L (45-117); Anion Gap 14.1 mEq/L (5.0-15.0); BUN Blood Urea Nitrogen 76.0 mg/dL (7-18); Globulin 4.5 g/dL (2.3-3.5); Glucose Level 250.0 mg/dL (74-106); Potassium 4.1 mEq/L (3.5-5.1)
[2024-10-11 06:32] LABS: Magnesium 2.1 mg/dL (1.6-2.4)
[2024-10-11] MEDS ORDERED: POTASSIUM PHOS IN 0.9 % NACL 15 MMOL/250 ML BAG IV ONE (06:39)
[2024-10-11] MEDS: ONDANSETRON 4 MG/2 ML VIAL IV PRN (08:07)
[2024-10-11] MEDS ORDERED: NOREPINEPHRINE 4 MG in D5W 250 ML IV SCH (08:30)
[2024-10-11] MEDS: SODIUM PHOSPHATE 15 MM in NA CHLORIDE 0.9% 250 ML IV ONE (09:05)
[2024-10-11] MEDS: Meropenem 500 MG in NA CHLORIDE 0.9% 100 ML IV SCH (09:05)
--- NOTE | 2024-10-11 09:35 | ECHO ---
HEIGHT: 5 ft 3 in WEIGHT: 167 lb 0 oz DATE OF STUDY: 10/10/[address]: Quirino Ann DO 2-DIMENSIONAL: YES M.MODE: YES DOPPLER: YES COLOR FLOW: YES TDS: YES PORTABLE: YES DEFINITY: BUBBLE STUDY: DIAGNOSIS: NON ST ELEVATION MYOCARDIAL INFARCTION CARDIAC HISTORY: CATHERIZATION: NO SURGERY: NO PROSTHETIC VALVE: NO PACEMAKER: NO MEASUREMENTS (cm) DIASTOLIC (NORMALS) SYSTOLIC (NORMALS) IVSd 1.1 (0.6-1.2) LA Diam 3.4 (1.9-4.0) LVEF 45-50% LVIDd 3.9 (3.5-5.7) LVIDs 2.9 (2.0-3.5) %FS 26% LVPWd 1.2 (0.6-1.2) Ao Diam 2.6 (2.0-3.7) 2 DIMENSIONAL ASSESSMENT: RIGHT ATRIUM: NORMAL LEFT ATRIUM: NORMAL RIGHT VENTRICLE: NORMAL LEFT VENTRICLE: NORMAL TRICUSPID VALVE: MILD TRICUSPID REGURGITATION MITRAL VALVE: NORMAL PULMONIC VALVE: NORMAL AORTIC VALVE: NORMAL PERICARDIAL EFFUSION: NONE AORTIC ROOT: NORMAL LEFT VENTRICULAR WALL MOTION: MILD GLOBAL HYPOKINESIS DOPPLER/COLOR FLOW: GRADE I DIASTOLIC DYSFUNCTION COMMENTS: 1. LOW NORMAL LEFT VENTRICULAR SYSTOLIC FUNCTION, EJECTION FRACTION 45-50%, MILD GLOBAL HYPOKIENSIS 2. GRADE I DIASTOLIC DYSFUNCTION TECHNOLOGIST: HOLLIS JACKSON
--- NOTE | 2024-10-11 11:05 | RAD REPORT ---
EXAM: XR XR ABDOMEN 1 VIEW (KUB) HISTORY: Abdominal pain COMPARISON: CT of the pelvis 10/09/2024 FINDINGS: Single view of the abdomen shows a nonspecific, nonobstructive bowel gas pattern. Sequelae of cystectomy upper lumbar vertebral augmentation. No evidence of free air. No suspicious calcifications are seen. The bones are unremarkable. IMPRESSION: Nonobstructive bowel gas pattern. Electronically signed by: Jake Rice MD 10/11/2024 06:42 AM CDT RP Due to temporary technical issues with the PACS/[employer] reporting system, reports are being alma d by the in-house radiologist without review as a courtesy to ensure prompt reporting the interpreting radiologist is fully responsible for the content of the report Transcribed Date/Time: 10/11/2024 11:05 AM
--- NOTE | 2024-10-11 11:12 | P.CNS ---
Date of Consult: 10/11/24 Chief Complaint: Pyelonephritis History of Present Illness: Patient with PMH of DM, CAD, presented with generalized weakness, malaise, AMS, was found to have PN and septic shock, cardiology were consulted for elevated troponin, patient is altered so history obtained from talking to family, denies patient complaining of chest pain. Allergies avocado Allergy (Mild, Verified 01/06/15 11:38) Itching/Hives/Rash No Known Allergies Allergy (Uncoded 04/18/16 06:57) Unknown Home medications list reviewed: Yes Home Medications: Insulin Glargine Human [Lantus*] 35 unit SQ DAILY 06/04/12 Insulin Aspart [Novolog Flexpen] 12 unit SQ BIDWM 10/10/14 Rosuvastatin [Crestor*] 10 mg PO DAILY 10/11/24 - Past Medical/Surgical History Diabetic: Yes -: DM -: HTN -: hyperlipidemia -: Cholecystectomy -: C section - Social History Smoking Status: Unknown if ever smoked Alcohol use: No CD- Drugs: No Caffeine use: Yes Place of Residence: Home Review of Systems 10-point ROS is otherwise unremarkable Physical Examination Temp Pulse Resp BP Pulse Ox 97.7 F 97 H 20 134/46 L 100 10/11/24 08:00 10/11/24 11:00 10/11/24 11:00 10/11/24 11:00 10/11/24 11:00 General: Alert, Mild distress, Delirious HEENT: Atraumatic, PERRLA, Mucous membr. moist/pink, EOMI, Sclerae nonicteric Neck: Supple, 2+ carotid pulse no bruit, No LAD, Without JVD or thyroid abnormality Respiratory: Clear to auscultation bilaterally, Normal air movement Cardiovascular: Regular rate/rhythm, Normal S1 S2 Gastrointestinal: Normal bowel sounds, No tenderness Musculoskeletal: No tenderness Integumentary: No rashes Neurological: Normal gait, Normal speech, Normal tone, Normal affect Lymphatics: No axilla or inguinal lymphadenopathy - Problems (1) NSTEMI (non-ST elevated myocardial infarction) Current Visit: Yes Status: Acute Plan: Patient troponin are elevated and they are uptrending, patient got multiple risk factors for CAD. continue to trend troponin until peak and down trending Echo shows mild global hypokinesis continue ASA 81 mg daily Heparin drip per protocol. discussed in details with family that she is too sick with abnormal kidney function for coronary angiogram at this point, so will keep following up depending on hospital course. (2) Septic shock Current Visit: Yes Status: Acute Plan: continue vasopressors support, hydration and ABX (3) SUNNI (acute kidney injury) Current Visit: Yes Status: Acute Plan: continue hydration and monitor.
[2024-10-11] MEDS ORDERED: SODIUM CHLORIDE 0.9% 10ML INJ IV PRN ×2 (13:15→13:16)
[2024-10-11] MEDS ORDERED: PANTOPRAZOLE 40 MG INJ IVP ONE (13:16)
[2024-10-11] MEDS: PANTOPRAZOLE 40 MG INJ IVP SCH (13:33)
--- NOTE | 2024-10-11 14:32 | P.PN ---
Date of Service: 10/11/24 Subjective: Mental status improving Passed bedside swallow screen Still hypotensive on Levophed Tolerating diet ROS: 10 point ROS as noted above, otherwise negative Physical exam GEN: Alert, oriented x 1-2, NAD HEENT: Normal conjunctiva, sclera anicteric CV: Regular rate and rhythm, no edema Pulm: Nonlabored respirations on room air ABD: Soft, nontender, nondistended MSK: No joint tenderness Integumentary: No rashes Neuro: Normal speech, normal affect Vitals reviewed Assessment: Septic shock secondary to pyelonephritis Gram-negative bacteremia Metabolic encephalopathy secondary to above Acute kidney injury Diabetes mellitus type 2insulin-dependent with noncompliance, hyperglycemia NSTEMI Plan: Septic shock secondary to pyelonephritis Gram-negative bacteremia Metabolic encephalopathy secondary to above Acute kidney injury Moderate right hydronephrosis and hydroureter Blood cultures obtained in ED, preliminarily positive with all 4 bottles gram- negative rods On Levophed for persistent hypotension secondary to septic shock Wean Levophed as tolerated, continue IV fluids Continue meropenem, vancomycin at this time Continue ICU level of care Monitor renal function closely, nephrology consulted and following CT head negative for acute findings Repeat renal ultrasound in a.m. 10/12 to reevaluate right hydronephrosis/hydroureter Repeat blood cultures a.m. 10/12 Diabetes mellitus type 2insulin-dependent with noncompliance, hyperglycemia Weaned off of insulin drip Renal/carb consistent diet Sliding scale insulin NSTEMI Continue heparin drip Cardiology following Likely to need coronary angiogram prior to discharge when more stable Echocardiogram shows LVEF of 45 to 50% with mild global hypokinesis and grade 1 diastolic dysfunction DVT PPX: Heparin drip Code status: Full code Time Spent Managing Pts Care (In Minutes): 45 <Chemo Moore - Last Filed: 10/11/24 14:29> I have personally spent 40 minutes of critical care time, in evaluation and management of this critically ill patients condition requiring use of high risk/critical medication - septic shock, on levophed, prelim blood cultures growing GNR Patient seen and examined on rounds this morning in the ICU. I agree with plan of care as noted above with the following additions / corrections: delirium. renal fxn slightly better. check renal U/S tomorrow to re-eval hydronephrosis. continue icu level of care updated family at bedside. <Kermit Wolff - Last Filed: 10/11/24 17:11>
[2024-10-11] MEDS ORDERED: D10W 125 ML IV PRN ×3 (16:46→17:05)
[2024-10-11] MEDS: INSULIN REGULAR (HUMAN) 100 UNIT/ML ONE (17:09)
[2024-10-11] MEDS ORDERED: INSULIN REGULAR (HUMAN) 100 UNIT/ML SQ SCH (21:00)
--- NOTE | 2024-10-11 22:24 | PN ---
Date of Progress Note: 10/11/2024 Chief Complaint: Acute kidney injury. Subjective: The patient is in ICU. She has multiple medical problems. She has acute nonoliguric ki dney failure in setting of urosepsis. The patient is a 69-year-old woman with past medical history o f diabetes mellitus, hypertension, hyperlipidemia. She presented to emergency room complaining of we akness, fever, chills, malaise. She had decreased p.o. intake. Serum creatinine level was up to 3.5 . Baseline creatinine level 1 month ago was 1.2. Past Medical History: Diabetes mellitus, hypertension, hyperlipidemia. Review of Systems: Denies chest pain, palpitation. Physical Examination: General: Lethargic. Neck: Supple. Heart: S1, S2. Abdomen: Soft. Extremities: No edema. Laboratory Data: BUN 74, creatinine 3.5, sodium 129. Impression And Plan: 1. Acute kidney injury, severe. The patient is on broad-spectrum antibiotic. The patient has urosep sis and is on pressors for blood pressure support. Continue IV fluids for acute kidney injury. Rosie tor blood pressure closely and wean off pressors accordingly. Keep MAP greater than 60. Avoid nonst eroidal anti-inflammatory medication. Continue Mosqueda catheter. Right hydronephrosis as per CT scan per stone protocol. There is no calculi present. Lastly, the hydronephrosis is the sequelae of pass ing the stone and associated pyelonephritis. Plan is to get renal ultrasound in 1 or 2 days. 2. Pyelonephritis, acute. Urosepsis. Continue antibiotics. 3. Hyponatremia. Continue normal saline and monitor blood glucose. Hyponatremia is related to glucose level. 4. Diabetes mellitus. Continue insulin. EB/MODL Voice ID: [id number] Report ID: [id number]
[2024-10-12 05:54] LABS: Hematocrit 20.4 % (36.0-45.0); Hemoglobin 6.8 g/dL (12.0-15.0); MCH 28.7 pg (27.0-35.0); MCHC 33.6 g/dL (32.0-36.0); MCV 85.6 fL (80-100); MPV 8.5 fL (7.6-11.3); RBC Red Blood Cell Count 2.38 M/uL (3.86-4.86); White Blood Count 16.80 thou/uL (4.3-10.9)
[2024-10-12 06:14] LABS: ALT/SGPT 18.0 U/L (13-56); AST/SGOT 25.0 U/L (15-37); Albumin 1.6 g/dL (3.4-5.0); Albumin/Globulin Ratio 0.4 (1.1-1.8); Alkaline Phosphatase 228.0 U/L (45-117); Anion Gap 10.7 mEq/L (5.0-15.0); BUN Blood Urea Nitrogen 63.0 mg/dL (7-18); Globulin 4.2 g/dL (2.3-3.5); Glucose Level 224.0 mg/dL (74-106); Magnesium 1.8 mg/dL (1.6-2.4); Potassium 3.7 mEq/L (3.5-5.1)
[2024-10-12 07:34] LABS: Hematocrit 20.3 % (36.0-45.0); Hemoglobin 6.7 g/dL (12.0-15.0)
--- NOTE | 2024-10-12 08:24 | RAD REPORT ---
EXAMINATION: US RETROPERITONEUM CLINICAL INDICATION: HS MAIN eval hydro TECHNIQUE: Real-time ultrasonography of the abdomen was performed. COMPARISON: CT abdomen pelvis 10/09/2024 FINDINGS: RIGHT KIDNEY: Right renal length measurement: 14.1 cm. Normal in echogenicity and size. No calculus, solid mass or hydronephrosis. LEFT KIDNEY: Left renal length measurement: 10.2 cm. Normal in echogenicity and size. Mildly echogeni c lower pole 5 mm focus of likely an artifact, clinical relate to a vascular structure versus small stone. No no other discrete evidence of calculus, solid mass or hydronephrosis. URINARY BLADDER: Decompressed limiting evaluation, with Mosqueda catheter in place. ADDITIONAL FINDINGS: None. IMPRESSION: No hydronephrosis or suspicious parenchymal abnormalities. Questionable 5 mm calculus at the left low er pole.
[2024-10-12] MEDS: FUROSEMIDE 20 MG/ 2ML VIAL IV ONE (08:37)
[2024-10-12] MEDS: ASPIRIN 81 MG CHEWABLE TABLET PO SCH (08:42)
[2024-10-12] MEDS ORDERED: NA CHLORIDE 0.9% 250 ML IV SCH (09:00)
--- NOTE | 2024-10-12 10:56 | P.PN ---
Date of Service: 10/12/24 Subjective: Continues on levophed Stopping heparing gtt no new complaints ROS: 10 point ROS as noted above, otherwise negative Physical exam GEN: AAO x 2, NAD HEENT: Normal conjunctiva, sclera anicteric CV: mild tachycardia, S1 S2 present Pulm: Symmetrical chest wall movement, on room air ABD: Soft and nontender, active bowel soudns MSK: No joint tenderness Integumentary: No rashes Neuro: Normal speech, normal affect Vitals reviewed Assessment: Septic shock secondary to pyelonephritis Gram-negative bacteremia Metabolic encephalopathy secondary to above Acute kidney injury Moderate right hydronephrosis and hydroureter Diabetes mellitus type 2insulin-dependent with noncompliance, hyperglycemia NSTEMI Plan: Septic shock secondary to pyelonephritis Gram-negative bacteremia Metabolic encephalopathy secondary to above Acute kidney injury Moderate right hydronephrosis and hydroureter Blood cultures obtained in ED, preliminarily positive with all 4 bottles gram- negative rods On Levophed for persistent hypotension secondary to septic shock Wean Levophed as tolerated, continue IV fluids Continue meropenem and vancomycin Continue ICU level of care Monitor renal function closely, nephrology consulted and following CT head negative for acute findings Repeat renal ultrasound reports "No hydronephrosis or suspicious parenchymal abnormalities. Questionable 5 mm calculus at the left lower pole." Repeat blood cultures a.m. 10/12- results pending Diabetes mellitus type 2insulin-dependent with noncompliance, hyperglycemia Weaned off of insulin drip Renal/carb consistent diet Sliding scale insulin NSTEMI Stop heparin drip d/t anemia repeat troponin 767, cardiology agree with stopping heparin gtt Likely to need coronary angiogram prior to discharge when more stable Echocardiogram shows LVEF of 45 to 50% with mild global hypokinesis and grade 1 diastolic dysfunction DVT PPX: SCD Code status: Full code Time Spent Managing Pts Care (In Minutes): 46
--- NOTE | 2024-10-12 13:28 | P.PN ---
Subjective Date of Service: 10/12/24 Chief Complaint: Pyelonephritis Subjective: No new changes, No C/O voiced, Tolerating diet, Ambulating, Improving Review of Systems 10-point ROS is otherwise unremarkable Physical Examination - Vital Signs Temperature: 98.6 F Blood Pressure: 143/55 Pulse: 94 Respirations: 18 Pulse Ox (%): 99 - Physical Exam General: Alert, In no apparent distress HEENT: Atraumatic, PERRLA, EOMI Neck: Supple, JVD not distended Respiratory: Clear to auscultation bilaterally, Normal air movement Cardiovascular: Regular rate/rhythm, Normal S1 S2 Gastrointestinal: Normal bowel sounds, No tenderness Musculoskeletal: No tenderness Integumentary: No rashes Neurological: Normal speech, Normal tone, Normal affect Lymphatics: No axilla or inguinal lymphadenopathy - Studies Microbiology Data (last 24 hrs): 10/10/24 02:32 Wound - Left Foot Gram Stain - Final 10/09/24 22:00 Clean Catch Urine [place] Count - Final >100,000 CFU/ML. 10/09/24 22:00 Clean Catch Urine - Final Escherichia Coli 10/09/24 22:05 Blood - Blood Aerobic Blood Culture - Final Escherichia Coli 10/09/24 22:05 Blood - Blood Blood Culture Gram Stain - Final 10/09/24 22:05 Blood - Blood Anaerobic Blood Culture - Final Escherichia Coli 10/09/24 22:05 Blood - Blood Gram Stain - Final 10/09/24 21:49 Blood - Blood Aerobic Blood Culture - Final Escherichia Coli 10/09/24 21:49 Blood - Blood Blood Culture Gram Stain - Final 10/09/24 21:49 Blood - Blood Anaerobic Blood Culture - Final Escherichia Coli 10/09/24 21:49 Blood - Blood Gram Stain - Final Medications List Reviewed: Yes Assessment And Plan - Current Problems (Diagnosis) (1) NSTEMI (non-ST elevated myocardial infarction) Current Visit: Yes Status: Acute Plan: Patient troponin are elevated and down trending Echo shows mild global hypokinesis continue ASA 81 mg daily Heparin drip was stopped due to drip in Hgb. discussed in details with family that she is too sick with abnormal kidney function for coronary angiogram at this point, so will keep following up sheryl powers on hospital course. (2) Septic shock Current Visit: Yes Status: Acute Plan: continue vasopressors support, hydration and ABX (3) SUNNI (acute kidney injury) Current Visit: Yes Status: Acute Plan: continue hydration and monitor.
--- NOTE | 2024-10-12 14:15 | P.CNS ---
Date of Consult: 10/10/24 Reason for Consult: Left foot diabetic ulcer Chief Complaint: Pyelonephritis History of Present Illness: 69 y/o female admitted for pyelonephritis and sepsis found also to have left foot diabetic ulcer. Allergies avocado Allergy (Mild, Verified 01/06/15 11:38) Itching/Hives/Rash No Known Allergies Allergy (Uncoded 04/18/16 06:57) Unknown Home Medications: Insulin Glargine Human [Lantus*] 35 unit SQ DAILY 06/04/12 Insulin Aspart [Novolog Flexpen] 12 unit SQ BIDWM 10/10/14 Rosuvastatin [Crestor*] 10 mg PO DAILY 10/11/24 - Past Medical/Surgical History Diabetic: Yes -: DM -: HTN -: hyperlipidemia -: Cholecystectomy -: C section - Social History Smoking Status: Unknown if ever smoked Alcohol use: No CD- Drugs: No Caffeine use: Yes Place of Residence: Home Review of Systems 10-point ROS is otherwise unremarkable General: Weakness, Malaise Eyes: Unremarkable ENT: Unremarkable Respiratory: Unremarkable Gastrointestinal: Nausea, Abdominal Pain Genitourinary: Frequency Integumentary: As per HPI Physical Examination Temp Pulse Resp BP Pulse Ox 98.6 F 94 H 18 143/55 H 99 10/12/24 13:28 10/12/24 13:28 10/12/24 13:28 10/12/24 13:28 10/12/24 13:28 General: Alert, In no apparent distress, Oriented x3, Cooperative HEENT: PERRLA, EOMI Neck: Supple Cardiovascular: Abnormal pulses (bilateral DP diminished, pt currently on Levophed vasocontrictors) Gastrointestinal: Soft and benign Integumentary: No rashes, No breakdown, No warmth, No cyanosis, Diabetic ulcer (left plantar 2x3cm no bone exposed no cellulitis, fibrin present) Neurological: Normal speech Conclusions/Impression: diabetic control Off loading santyl to left foot and sterile gauze daily
[2024-10-12] MEDS: MIDODRINE HCL 5 MG TABLET PO SCH (14:43)
[2024-10-12] MEDS: FUROSEMIDE 20 MG/ 2ML VIAL ONE (14:44)
[2024-10-12] MEDS: COLLAGENASE 30 GM OINTMENT TOP SCH (14:45)
[2024-10-12 17:24] LABS: Hematocrit 24.2 % (36.0-45.0); Hemoglobin 8.2 g/dL (12.0-15.0)
[2024-10-13 05:49] LABS: Hematocrit 24.6 % (36.0-45.0); Hemoglobin 8.4 g/dL (12.0-15.0); MCH 29.4 pg (27.0-35.0); MCHC 34.0 g/dL (32.0-36.0); MCV 86.2 fL (80-100); MPV 8.3 fL (7.6-11.3); RBC Red Blood Cell Count 2.86 M/uL (3.86-4.86); White Blood Count 12.80 thou/uL (4.3-10.9)
[2024-10-13 06:31] LABS: ALT/SGPT 17.0 U/L (13-56); AST/SGOT 21.0 U/L (15-37); Albumin 1.6 g/dL (3.4-5.0); Albumin/Globulin Ratio 0.4 (1.1-1.8); Alkaline Phosphatase 253.0 U/L (45-117); Anion Gap 10.7 mEq/L (5.0-15.0); BUN Blood Urea Nitrogen 49.0 mg/dL (7-18); Ferritin 856.9 ng/mL (8-252); Globulin 4.4 g/dL (2.3-3.5); Glucose Level 182.0 mg/dL (74-106); Iron 45.0 ug/dL (50-170); Magnesium 1.6 mg/dL (1.6-2.4); Potassium 3.7 mEq/L (3.5-5.1); Transferrin 113.0 mg/dL (200-360)
[2024-10-13] MEDS: VANCOMYCIN 1 GM in NA CHLORIDE 0.9% 250 ML IVPB SCH (06:42)
--- NOTE | 2024-10-13 11:33 | P.PN ---
Date of Service: 10/13/24 Subjective: Off levophed since 1400 on 10/12 Started on midodrine Kidney function improved Awake and eating breakfast with family around No new complaint ROS: 10 point ROS as noted above, otherwise negative Physical exam GEN: Oriented x 2, NAD HEENT: Normal conjunctiva, sclera anicteric CV: NSR, S1 S2 present Pulm: Symmetrical chest wall movement, on room air ABD: Soft and nontender, active bowel sounds MSK: No joint tenderness Integumentary: No rashes Neuro: Normal speech, normal affect Vitals reviewed Assessment: Septic shock secondary to pyelonephritis Gram-negative bacteremia Metabolic encephalopathy secondary to above Anemia Acute kidney injury Moderate right hydronephrosis and hydroureter Diabetes mellitus type 2insulin-dependent with noncompliance, hyperglycemia NSTEMI Plan: Septic shock secondary to pyelonephritis Gram-negative bacteremia Metabolic encephalopathy secondary to above Acute kidney injury Moderate right hydronephrosis and hydroureter Blood cultures obtained in ED, preliminarily positive with all 4 bottles gram- negative rods s/p persistent hypotension secondary to septic shock Levophed off from 1400 yesterday, will downgrade to the floor in 24 hours Continue meropenem and vancomycin Monitor renal function closely, nephrology consulted and following CT head negative for acute findings Repeat renal ultrasound reports "No hydronephrosis or suspicious parenchymal abnormalities. Questionable 5 mm calculus at the left lower pole." Repeat blood cultures a.m. 10/12-no growth to date Anemia 1 units packed red blood cell transfused 10/12/2024 Stopped heparin drip Blood pressure improved and hemoglobin remained stable Continue to monitor iron studies with mildly decreased iron Diabetes mellitus type 2insulin-dependent with noncompliance, hyperglycemia Weaned off of insulin drip Renal/carb consistent diet, on full liquids Sliding scale insulin NSTEMI Stop heparin drip d/t anemia repeat troponin 767, cardiology agree with stopping heparin gtt 10/12 Likely to need coronary angiogram prior to discharge when more stable Echocardiogram shows LVEF of 45 to 50% with mild global hypokinesis and grade 1 diastolic dysfunction DVT PPX: Lovenox started today Code status: Full code Time Spent Managing Pts Care (In Minutes): 42
[2024-10-13] MEDS ORDERED: MIDODRINE HCL 5 MG TABLET PO PRN (17:22)
[2024-10-13] MEDS: ENOXAPARIN 30 MG/0.3 ML SQ SCH (18:36)
--- NOTE | 2024-10-13 21:20 | PN ---
Date of Progress Note: 10/13/2024 Chief Complaint: Acute kidney injury. Subjective: The patient was admitted to ICU. She has multiple medical problems. She was found to h ave acute kidney injury in the setting of urosepsis. The patient was on Levophed drip for blood pres sure support. She has underlying history of diabetes mellitus, hypertension, hyperlipidemia. She pr esented to emergency room complaining of weakness, altered mental status, confusion, fever, chills, m alaise. She had decreased p.o. intake. Serum creatinine level was up to 3.5. Baseline creatinine l evel 1 month ago was 1.2. Past Medical History: Diabetes mellitus, hypertension, hyperlipidemia. Review of Systems: Denies chest pain, palpitations. Physical Examination: Lungs: Clear to auscultation bilaterally. Heart: S1, S2. Abdomen: Soft. Extremities: No edema. Impression And Plan: 1. Acute kidney injury, severe. The patient is on broad-spectrum antibiotics for urosepsis. The pat ient is on IV fluids for acute kidney injury. Monitor blood pressure closely, and the patient was we aned off Levophed drip. Currently, she is on midodrine. Monitor blood pressure, adjust treatment, a nd hold midodrine if systolic blood pressure is over 100. 2. The patient was found to have questionable hydronephrosis likely due to stone and renal ultrasound was done subsequently and did not show hydronephrosis. CT scan per stone protocol did not demonstra te calculi. The patient may need to follow up with urologist for further workup. 3. Pyelonephritis, acute; urosepsis. Continue antibiotics. 4. Hyponatremia. Continue normal saline and monitor blood glucose. Hyponatremia is related to elevated glucose level. 5. Diabetes mellitus. Continue insulin. EB/MODL Voice ID: [id number] Report ID: [id number]
[2024-10-14 05:59] LABS: Hematocrit 25.7 % (36.0-45.0); Hemoglobin 8.9 g/dL (12.0-15.0); MCH 30.1 pg (27.0-35.0); MCHC 34.7 g/dL (32.0-36.0); MCV 86.8 fL (80-100); MPV 8.1 fL (7.6-11.3); RBC Red Blood Cell Count 2.96 M/uL (3.86-4.86); White Blood Count 8.40 thou/uL (4.3-10.9)
[2024-10-14 06:25] LABS: ALT/SGPT 18.0 U/L (13-56); AST/SGOT 20.0 U/L (15-37); Albumin 1.7 g/dL (3.4-5.0); Albumin/Globulin Ratio 0.4 (1.1-1.8); Alkaline Phosphatase 249.0 U/L (45-117); Anion Gap 9.7 mEq/L (5.0-15.0); BUN Blood Urea Nitrogen 39.0 mg/dL (7-18); Globulin 4.3 g/dL (2.3-3.5); Glucose Level 241.0 mg/dL (74-106); Magnesium 1.4 mg/dL (1.6-2.4); Potassium 3.7 mEq/L (3.5-5.1)
--- NOTE | 2024-10-14 12:56 | P.PN ---
Subjective Date of Service: 10/14/24 Chief Complaint: Pyelonephritis Subjective: No new changes, Improving Review of Systems 10-point ROS is otherwise unremarkable Physical Examination - Vital Signs Temperature: 97.5 F Blood Pressure: 169/72 Pulse: 90 Respirations: 16 Pulse Ox (%): 96 - Physical Exam General: Alert, In no apparent distress HEENT: Atraumatic, PERRLA, EOMI Neck: Supple, JVD not distended Respiratory: Clear to auscultation bilaterally, Normal air movement Cardiovascular: Regular rate/rhythm, Normal S1 S2 Gastrointestinal: Normal bowel sounds, No tenderness Musculoskeletal: No tenderness Integumentary: No rashes Neurological: Normal speech, Normal tone, Normal affect Lymphatics: No axilla or inguinal lymphadenopathy - Studies Medications List Reviewed: Yes Assessment And Plan - Current Problems (Diagnosis) (1) NSTEMI (non-ST elevated myocardial infarction) Current Visit: Yes Status: Acute Plan: Patient troponin are elevated and down trending Echo shows mild global hypokinesis continue ASA 81 mg daily Heparin drip was stopped due to drip in Hgb. Patient general condition is getting better, will give another day to check on progress of repeated blood cultures and kidney function and Hg, if stable and cultures are still negative then will consider coronary angiogram on Tuesday. (2) Septic shock Current Visit: Yes Status: Acute Plan: continue vasopressors support, hydration and ABX (3) SUNNI (acute kidney injury) Current Visit: Yes Status: Acute Plan: continue hydration and monitor. (4) HTN (hypertension) Current Visit: Yes Status: Acute Plan: BP is high. consider adding Coreg 3.125 mg po BID and continue to monitor.
--- NOTE | 2024-10-14 15:44 | P.PN ---
Date of Service: 10/14/24 Subjective: Downgraded to the floor Family reports she is struggling to urinate Kidney function improved Hypertensive today, started coreg 3.125 mg BID per Cardiology ROS: 10 point ROS as noted above, otherwise negative Physical exam GEN: awake, oriented x 2, NAD HEENT: Normal conjunctiva, sclera anicteric CV: NSR, S1 S2 present Pulm: Symmetrical chest wall movement, on RA ABD: Soft on palpation, active bowel sounds MSK: No joint tenderness Integumentary: No rashes Neuro: Normal speech, normal affect Vitals reviewed Assessment: Septic shock secondary to pyelonephritis Gram-negative bacteremia Metabolic encephalopathy secondary to above Anemia Hypertension Acute kidney injury Moderate right hydronephrosis and hydroureter Diabetes mellitus type 2insulin-dependent with noncompliance, hyperglycemia NSTEMI Plan: Septic shock secondary to pyelonephritis Gram-negative bacteremia Metabolic encephalopathy secondary to above Acute kidney injury Moderate right hydronephrosis and hydroureter Blood cultures obtained in ED, preliminarily positive with all 4 bottles gram- negative rods s/p persistent hypotension secondary to septic shock Levophed off, will downgrade to the floor in 24 hours Stopped meropenem and vancomycin, started PO levaquin Monitor renal function- improved, nephrology consulted and following CT head negative for acute findings Repeat renal ultrasound reports "No hydronephrosis or suspicious parenchymal abnormalities. Questionable 5 mm calculus at the left lower pole." Repeat blood cultures a.m. 10/12-no growth to date Anemia 1 units packed red blood cell transfused 10/12/2024 Stopped heparin drip H/H stable Continue to monitor iron studies with mildly decreased iron Hypertension -Coreg 3.125 mg BID -midodrine PRN but not used once off Levophed Diabetes mellitus type 2insulin-dependent with noncompliance, hyperglycemia Weaned off of insulin drip Renal/carb consistent diet, Continue full liquids Sliding scale insulin NSTEMI Stop heparin drip d/t anemia repeat troponin 767, cardiology agree with stopping heparin gtt 10/12 Likely to need coronary angiogram prior to discharge when more stable Echocardiogram shows LVEF of 45 to 50% with mild global hypokinesis and grade 1 diastolic dysfunction Plan for heart cath on Tuesday per cardiology DVT PPX: Lovenox Code status: Full code Time Spent Managing Pts Care (In Minutes): 35
--- NOTE | 2024-10-14 21:11 | PN ---
Date of Progress Note: 10/14/2024 Chief Complaint: Acute kidney injury. Subjective: The patient was admitted to ICU for urosepsis. She was on Levophed and was wean off Levophed. She is hemodynamically stable. Nephrology consultation was requested for acute kidney injury. The patient had serum creatinine level of 3.5 upon admission. Previous baseline one month ago was creatinine 1.2. The patient has nonoliguric urine output. She was started on IV fluids and pressors along with antibiotics. The patient has questionable hydronephrosis and questionable kidney stones, and Urology consultation was requested. Review of Systems: Denies chest pain, palpitations. Physical Examination: Lungs: Clear to auscultation bilaterally. Heart: S1, S2. Abdomen: Soft. Extremities: No edema. Impression And Plan: 1. Acute kidney injury, severe. The patient is on broad-spectrum antibiotic. The patient has urosepsis and is on pressors for blood pressure support. Continue IV fluids for acute kidney injury. Monitor blood pressure closely and wean off pressors accordingly. Keep MAP greater than 60. Avoid nonsteroidal anti- inflammatory medication. Continue [place] catheter. Right hydronephrosis as per CT scan per stone protocol. There is no calculi present. Lastly, the hydronephrosis is the sequelae of passing the stone and associated pyelonephritis. Plan is to get renal ultrasound in 1 or 2 days. 2. Pyelonephritis, acute. Urosepsis. Continue antibiotics. 3. Hyponatremia. Continue normal saline and monitor blood glucose. Hyponatremia is related to glucose level. 4. Diabetes mellitus. Continue insulin DICTATION ENDS HERE. RACHEAL/ARRON Voice ID: [id number] Report ID: [id number] CAITLIN
[2024-10-15 04:55] LABS: Hematocrit 24.2 % (36.0-45.0); Hemoglobin 8.3 g/dL (12.0-15.0); MCH 29.8 pg (27.0-35.0); MCHC 34.2 g/dL (32.0-36.0); MCV 87.0 fL (80-100); MPV 7.8 fL (7.6-11.3); RBC Red Blood Cell Count 2.78 M/uL (3.86-4.86); White Blood Count 8.40 thou/uL (4.3-10.9)
[2024-10-15 05:21] LABS: ALT/SGPT 23.0 U/L (13-56); Albumin 1.7 g/dL (3.4-5.0); Albumin/Globulin Ratio 0.4 (1.1-1.8); Alkaline Phosphatase 229.0 U/L (45-117); Anion Gap 9.1 mEq/L (5.0-15.0); BUN Blood Urea Nitrogen 35.0 mg/dL (7-18); Globulin 4.3 g/dL (2.3-3.5); Glucose Level 242.0 mg/dL (74-106)
[2024-10-15 05:22] LABS: AST/SGOT 27.0 U/L (15-37); Magnesium 1.3 mg/dL (1.6-2.4); Potassium 4.1 mEq/L (3.5-5.1)
[2024-10-15] MEDS: Magnesium Sulfate 2gm IVPB 2 G/50 ML BAG IV ONE (06:35)
--- NOTE | 2024-10-15 10:50 | P.PN ---
Subjective Date of Service: 10/15/24 Chief Complaint: Pyelonephritis Subjective: No new changes, No C/O voiced, Improving Review of Systems 10-point ROS is otherwise unremarkable Physical Examination - Vital Signs Temperature: 97.6 F Blood Pressure: 161/70 Pulse: 77 Respirations: 22 Pulse Ox (%): 96 - Physical Exam General: Alert, In no apparent distress HEENT: Atraumatic, PERRLA, EOMI Neck: Supple, JVD not distended Respiratory: Clear to auscultation bilaterally, Normal air movement Cardiovascular: Regular rate/rhythm, Normal S1 S2 Gastrointestinal: Normal bowel sounds, No tenderness Musculoskeletal: No tenderness Integumentary: No rashes Neurological: Normal speech, Normal tone, Normal affect Lymphatics: No axilla or inguinal lymphadenopathy - Studies Microbiology Data (last 24 hrs): 10/10/24 02:32 Wound - Left Foot Gram Stain - Final 10/10/24 02:32 Wound - Left Foot Culture & Sensitivity - Final Escherichia Coli Streptococcus Agalactiae Grp B Meth Resistant Staph Aureus Medications List Reviewed: Yes Assessment And Plan - Current Problems (Diagnosis) (1) NSTEMI (non-ST elevated myocardial infarction) Current Visit: Yes Status: Acute Plan: Patient troponin are elevated and down trending Echo shows mild global hypokinesis continue ASA 81 mg daily Heparin drip was stopped due to drip in Hgb. Patient general condition is getting better, will give another day to check on progress of repeated blood cultures and kidney function and Hg, if stable and cultures are still negative then will consider coronary angiogram on Tuesday. started patient on ASA and Plavix so monitor CBC closely. (2) Septic shock Current Visit: Yes Status: Acute Plan: continue vasopressors support, hydration and ABX (3) SUNNI (acute kidney injury) Current Visit: Yes Status: Acute Plan: continue hydration and monitor. (4) HTN (hypertension) Current Visit: Yes Status: Acute Plan: BP is high. Increase Coreg to 6.25 mg po BID and continue to monitor. add Losartan 25 mg daily if ok with nephrology team.
[2024-10-15] MEDS: INSULIN GLARGINE 100 UNIT/ML SQ SCH (12:00)
--- NOTE | 2024-10-15 15:41 | PN ---
Date of Progress Note: 10/15/2024 Diagnosis: Left foot diabetic ulcer. Subjective: The patient was admitted to the hospital with pyelonephritis, NSTEMI, and a surgical con sult was obtained for the wound, although the wound does not look infected at this moment. Objective: Chest: Clear. Abdomen: Soft and depressible. Extremities: Good capillary refill. Wound: Fibrin present mild which was removed today and basically no evidence of erythema, fluctuance , or crepitus. Plan: We will continue with the wound care, offloading, diabetes control. ABDULAZIZ/ARRON Voice ID: [id number] Report ID: [id number]
--- NOTE | 2024-10-15 16:06 | PN ---
Date of Progress Note: 10/15/2024 Chief Complaint: Acute kidney injury. Subjective: The patient was admitted to ICU for urosepsis. She was started on Levophed for severe hypotension and septic shock. The patient has history of chronic kidney disease, stage 3. Baseline creatinine is 1.2. Upon admission, serum creatinine level was 3.5, and the patient was started on IV fluids for severe acute kidney injury along with pressors. Review of Systems: Denies chest pain, palpitations. Physical Examination: Lungs: Clear to auscultation bilaterally. Heart: S1, S2. Abdomen: Soft. Extremities: No edema. Impression And Plan: 1. Acute kidney injury secondary to ATN, prerenal azotemia in the setting of hypotension, renal hypoperfusion, and urosepsis. Continue IV fluids for acute kidney injury. The patient will need referral to Urology. She was found to have right hydronephrosis per CT scan per stone protocol. Subsequently, ultrasound did not show hydronephrosis but there was questionable kidney stone of 5 mm. 2. The patient will continue antibiotics for pyelonephritis. She has acute pyelonephritis. 3. Hyponatremia. Continue normal saline. Electrolytes stable. 4. Diabetes mellitus. Continue insulin. EB/MODL Voice ID: [id number] Report ID: [id number] CAITLIN
--- NOTE | 2024-10-15 16:12 | P.PN ---
Date of Service: 10/15/24 Subjective: Doing well, conversing better today Need better blood sugar control, restarted Semglee Plan for LHC in the AM Still Hypertensive ROS: 10 point ROS as noted above, otherwise negative Physical exam GEN: AAO x 2, good conversation HEENT: Normal conjunctiva, sclera anicteric CV: NSR, S1 S2 present Pulm: Clear BBS, on RA ABD: Soft on palpation, active bowel sounds MSK: No joint tenderness Integumentary: No rashes Neuro: Normal speech, normal affect Vitals reviewed Assessment: Septic shock secondary to pyelonephritis Gram-negative bacteremia Metabolic encephalopathy secondary to above Anemia Hypertension Acute kidney injury Moderate right hydronephrosis and hydroureter Diabetes mellitus type 2insulin-dependent with noncompliance, hyperglycemia NSTEMI Plan: Septic shock secondary to pyelonephritis Gram-negative bacteremia Metabolic encephalopathy secondary to above Acute kidney injury Moderate right hydronephrosis and hydroureter Blood cultures obtained in ED, preliminarily positive with all 4 bottles gram- negative rods s/p persistent hypotension secondary to septic shock Stopped meropenem and vancomycin, started PO levaquin Monitor renal function- improved, nephrology consulted and following CT head negative for acute findings Repeat renal ultrasound reports "No hydronephrosis or suspicious parenchymal abnormalities. Questionable 5 mm calculus at the left lower pole." Repeat blood cultures a.m. 10/12-no growth to date Anemia 1 units packed red blood cell transfused 10/12/2024 Stopped heparin drip H/H stable Continue to monitor iron studies with mildly decreased iron Hypertension -Coreg 3.125 mg BID -midodrine PRN but not used once off Levophed Diabetes mellitus type 2insulin-dependent with noncompliance, hyperglycemia Weaned off of insulin drip Renal/carb consistent diet, Continue full liquids Sliding scale insulin and semglee added NSTEMI Stop heparin drip d/t anemia repeat troponin 767, cardiology agree with stopping heparin gtt 10/12 Likely to need coronary angiogram prior to discharge when more stable Echocardiogram shows LVEF of 45 to 50% with mild global hypokinesis and grade 1 diastolic dysfunction Plan for heart cath in the AM NPO DVT PPX: Lovenox Code status: Full code Time Spent Managing Pts Care (In Minutes): 32
[2024-10-15] MEDS: NA CHLORIDE 0.9% 1,000 ML IV SCH (16:43)
[2024-10-15] MEDS: DOCUSATE NA 100 MG CAP PO ONE (20:33)
[2024-10-15] MEDS: SMZ./TMP. 800/160 MG TABLET PO SCH (20:34)
[2024-10-15] MEDS: DOCUSATE NA 100 MG CAP PO PRN (20:40)
[2024-10-16 04:37] LABS: Hematocrit 23.5 % (36.0-45.0); Hemoglobin 7.8 g/dL (12.0-15.0); MCH 28.8 pg (27.0-35.0); MCHC 33.1 g/dL (32.0-36.0); MCV 86.9 fL (80-100); MPV 7.9 fL (7.6-11.3); RBC Red Blood Cell Count 2.70 M/uL (3.86-4.86); White Blood Count 12.40 thou/uL (4.3-10.9)
[2024-10-16 04:53] LABS: ALT/SGPT 21.0 U/L (13-56); AST/SGOT 17.0 U/L (15-37); Albumin 1.7 g/dL (3.4-5.0); Albumin/Globulin Ratio 0.4 (1.1-1.8); Alkaline Phosphatase 213.0 U/L (45-117); Anion Gap 8.8 mEq/L (5.0-15.0); BUN Blood Urea Nitrogen 29.0 mg/dL (7-18); Globulin 4.0 g/dL (2.3-3.5); Glucose Level 106.0 mg/dL (74-106); Magnesium 1.6 mg/dL (1.6-2.4); Potassium 3.8 mEq/L (3.5-5.1)
[2024-10-16] MEDS: Magnesium Sulfate 2gm IVPB 2 G/50 ML BAG IV ONE (06:38)
[2024-10-16] MEDS: KCL 20 MEQ/100 mL IVPB 20 MEQ/100 ML BAG IV SCH (08:13)
[2024-10-16] MEDS: NA CHLORIDE 0.9% 250 ML ONE (08:14)
[2024-10-16] MEDS ORDERED: ASPIRIN EC 81 MG TAB PO SCH (09:00)
[2024-10-16] MEDS: PANTOPRAZOLE 40MG TABLET PO SCH (10:12)
[2024-10-16] MEDS ORDERED: HEPA 1000U/500MLS 2,000 UNIT/1,000 ML BAG IV ONE (10:40)
[2024-10-16] MEDS ORDERED: HEPARIN 10,000 UNIT/10 ML VIAL IV ONE (10:40)
[2024-10-16] MEDS ORDERED: LIDOCAINE 1% 20 ML MDV ONE (10:40)
[2024-10-16] MEDS ORDERED: MIDAZOLAM HCL 2 MG/2 ML INJ ONE (10:40)
[2024-10-16] MEDS ORDERED: TICAGRELOR 90 MG TABLET PO ONE (10:41)
[2024-10-16] MEDS ORDERED: HEPARIN 5000 UNIT/ML 1 ML VIAL ONE (10:41)
[2024-10-16] MEDS ORDERED: CLOPIDOGREL 75 MG TABLET ONE (10:41)
[2024-10-16] MEDS ORDERED: FENTANYL CITR 100 MCG/2 ML ONE (10:41)
[2024-10-16] MEDS ORDERED: ASPIRIN 325 MG TAB ONE (10:41)
[2024-10-16] MEDS ORDERED: ATROPINE SULF 1 MG/10 ML SYR IV ONE (10:41)
--- NOTE | 2024-10-16 11:53 | P.PN ---
Subjective Date of Service: 10/16/24 Chief Complaint: Pyelonephritis Subjective: No new changes, No C/O voiced, Tolerating diet, Ambulating, Improving Review of Systems 10-point ROS is otherwise unremarkable Physical Examination - Vital Signs Temperature: 98.1 F Blood Pressure: 122/64 Pulse: 68 Respirations: 18 Pulse Ox (%): 94 - Physical Exam General: Alert, In no apparent distress HEENT: Atraumatic, PERRLA, EOMI Neck: Supple, JVD not distended Respiratory: Clear to auscultation bilaterally, Normal air movement Cardiovascular: Regular rate/rhythm, Normal S1 S2 Gastrointestinal: Normal bowel sounds, No tenderness Musculoskeletal: No tenderness Integumentary: No rashes Neurological: Normal speech, Normal tone, Normal affect Lymphatics: No axilla or inguinal lymphadenopathy - Studies Microbiology Data (last 24 hrs): 10/10/24 02:32 Wound - Left Foot Gram Stain - Final 10/10/24 02:32 Wound - Left Foot Culture & Sensitivity - Final Escherichia Coli Streptococcus Agalactiae Grp B Meth Resistant Staph Aureus Medications List Reviewed: Yes Assessment And Plan - Current Problems (Diagnosis) (1) NSTEMI (non-ST elevated myocardial infarction) Current Visit: Yes Status: Acute Plan: Patient troponin are elevated and down trending Echo shows mild global hypokinesis continue ASA 81 mg daily Heparin drip was stopped due to drip in Hgb. Patient had a coronary angiogram done today that shown complex multivessel CAD, patient general condition is very poor, so she is not a surgical candidate, also she has been having dropping in HgB and SUNNI, so plan for medical management at current time and will see patient in office to evaluate for High risk PCI continue ASA and Plavix so monitor CBC closely. (2) Septic shock Current Visit: Yes Status: Acute Plan: continue vasopressors support, hydration and ABX (3) SUNNI (acute kidney injury) Current Visit: Yes Status: Acute Plan: continue hydration and monitor. (4) HTN (hypertension) Current Visit: Yes Status: Acute Plan: BP is high. Increase Coreg to 6.25 mg po BID and continue to monitor.
[2024-10-16] MEDS: NA CHLORIDE 0.9% 500 ML ONE (11:55)
--- NOTE | 2024-10-16 13:03 | OP ---
Date of Procedure: 10/16/2024 Surgeon: Kayode Dawson Procedure Performed: Selective coronary angiogram. Indication For Procedure: The patient admitted with septic shock, pyelonephritis. Patient is very d ebilitated, was found to have a [id number] RI with mildly reduced ejection fraction. The patie nt was presented to the central lab technician for coronary angiogram. Complications: None. Estimated Blood Loss: Less than 50 cc. Access: Right radial, closed by TR band. Sedation Time: 20 minutes with 1 of Versed and 25 of fentanyl. Description Of Procedure: After risks, and benefits, and alternatives were explained to the patient, patient agreed to proceed with procedure and signed informed consent. The patient was brought back to the central lab technician, prepped and draped in sterile fashion. Time-out was performed. Sedation was admini stered. Next, right radial access was obtained using ultrasound-guided micropuncture technique. Tig er 4.0 catheter was advanced over a J-wire to the aortic root. Selective angiogram of the left and r ight coronary systems was done. At the end of procedure, catheter was removed over a J-wire. Sheath was removed. TR band was applied. Hemostasis was achieved, and the patient was moved back to [facility] in stable condition. Findings: 1. Left main normal. 2. LAD; heavy calcified artery with mid 70% disease, then mid to distal mild luminal irregularities. 3. Left circ; a calcified artery that got diffuse mid to distal 70% disease. It gives an OM1 that cifuentes s mild LI, then it gives an OM2 that has proximal 90% disease, and then it continues as OM3 with diff use 99% disease. 4. RCA; heavily calcified artery with mid diffuse 70% disease and then distally it got 90% disease be fore bifurcation into RPDA and RPLB. Assessment And Plan: Significant multivessel CAD including the mid LAD, left circ bifurcation into O M2 and OM3, distal RCA disease. The plan is to continue medical management at this point with trial of aspirin and Plavix, and then o utpatient evaluations for high-risk PCI versus a CABG evaluation depending on patient's physical cond ition after discharge. CIFUENTES/MODL Voice ID: [id number] Report ID: [id number]
[2024-10-16] MEDS: NA CHLORIDE 0.9% 1,000 ML IV SCH (15:28)
[2024-10-16] MEDS: CLOPIDOGREL 75 MG TABLET PO SCH (15:28)
[2024-10-16] MEDS: ACETYLCYST 20% 800 MG/4 ML VIAL PO SCH (20:54)
--- NOTE | 2024-10-16 21:01 | P.PN ---
Date of Service: 10/16/24 Subjective: Doing well this morning Plan for [facility] then will monitor kidney function and H/H prior to discharge Blood pressure better ROS: 10 point ROS as noted above, otherwise negative Physical exam GEN: Alert and oriented x 3, afebrile HEENT: Normal conjunctiva, sclera anicteric CV: Regular rate and rhythm, S1 S2 present Pulm: Clear BBS, on RA ABD: Soft on palpation, active bowel sounds MSK: No joint tenderness Integumentary: No rashes Neuro: Normal speech, normal affect Vitals reviewed Assessment: Septic shock secondary to pyelonephritis Gram-negative bacteremia Metabolic encephalopathy secondary to above Anemia Hypertension Acute kidney injury Moderate right hydronephrosis and hydroureter Diabetes mellitus type 2insulin-dependent with noncompliance, hyperglycemia NSTEMI Complex multivessel CAD Plan: Septic shock secondary to pyelonephritis Gram-negative bacteremia Metabolic encephalopathy secondary to above Acute kidney injury Moderate right hydronephrosis and hydroureter Blood cultures obtained in ED, preliminarily positive with all 4 bottles gram- negative rods s/p persistent hypotension secondary to septic shock Stopped meropenem and vancomycin, started PO levaquin Monitor renal function- improved, nephrology consulted and following CT head negative for acute findings Repeat renal ultrasound reports "No hydronephrosis or suspicious parenchymal abnormalities. Questionable 5 mm calculus at the left lower pole." Repeat blood cultures a.m. 10/12-no growth to date Anemia 1 units packed red blood cell transfused 10/12/2024 Stopped heparin drip H/H 7.8/23.5 Continue to monitor status post heart cath iron studies with mildly decreased iron Hypertension -Coreg 3.125 mg BID -midodrine PRN but not used once off Levophed Diabetes mellitus type 2insulin-dependent with noncompliance, hyperglycemia Weaned off of insulin drip Renal/carb consistent diet, Continue full liquids Sliding scale insulin and semglee added NSTEMI Complex multivessel CAD Stop heparin drip d/t anemia repeat troponin 767, cardiology agree with stopping heparin gtt 10/12 Likely to need coronary angiogram prior to discharge when more stable Echocardiogram shows LVEF of 45 to 50% with mild global hypokinesis and grade 1 diastolic dysfunction Per cardiology, will discharge and follow-up outpatient for further consultation concerning high risk PCI versus CABG DVT PPX: Lovenox Code status: Full code Time Spent Managing Pts Care (In Minutes): 35
--- NOTE | 2024-10-16 23:03 | PN ---
Date of Progress Note: 10/16/2024 Chief Complaint: Urosepsis, acute kidney injury. Subjective: The patient was started on Levophed for severe hypotension, septic shock. She has under lying chronic kidney disease, stage 3. Baseline creatinine level 1.2. Upon admission, serum creatin ine level was 3.5. The patient was on IV fluids and today, she is undergoing cardiac catheterization and received Mucomyst and IV fluids. Review of Systems: Denies chest pain, palpitation. Physical Examination: Lungs: Clear to auscultation bilaterally. Heart: S1, S2. Abdomen: Soft. Extremities: No edema. Impression And Plan: 1. Acute kidney injury secondary to acute tubular necrosis, prerenal azotemia in the setting of hypot ension, renal hypoperfusion, and urosepsis. Continue IV fluids. Renal function is gradually improvi ng. She was found to have right hydronephrosis per CT scan stone protocol. Subsequently, ultrasound did not show hydronephrosis, although ultrasound visualized questionable kidney stone of 5 mm. The patient needs to follow up with Urology. Currently, patient is asymptomatic. Does not have hematuri a, dysuria, and denies her kidney colic and there is no hydronephrosis as of latest test with ultraso und. The patient will continue antibiotics for pyelonephritis. 2. Hyponatremia. Continue normal saline. Monitor electrolytes. 3. Diabetes mellitus. Continue insulin. Avoid metformin due to risk of lactic acidosis. EB/MODL Voice ID: [id number] Report ID: [id number]
[2024-10-17 04:40] LABS: Hematocrit 24.0 % (36.0-45.0); Hemoglobin 7.9 g/dL (12.0-15.0); MCH 28.8 pg (27.0-35.0); MCHC 32.9 g/dL (32.0-36.0); MCV 87.5 fL (80-100); MPV 7.4 fL (7.6-11.3); RBC Red Blood Cell Count 2.74 M/uL (3.86-4.86); White Blood Count 13.20 thou/uL (4.3-10.9)
[2024-10-17 04:55] LABS: ALT/SGPT 22.0 U/L (13-56); AST/SGOT 22.0 U/L (15-37); Albumin 1.7 g/dL (3.4-5.0); Albumin/Globulin Ratio 0.4 (1.1-1.8); Alkaline Phosphatase 210.0 U/L (45-117); Anion Gap 6.3 mEq/L (5.0-15.0); BUN Blood Urea Nitrogen 26.0 mg/dL (7-18); Globulin 4.3 g/dL (2.3-3.5); Glucose Level 151.0 mg/dL (74-106); Magnesium 1.8 mg/dL (1.6-2.4); Potassium 4.3 mEq/L (3.5-5.1)
[2024-10-17] MEDS: NA CHLORIDE 0.9% 1,000 ML IV SCH (12:53)
--- NOTE | 2024-10-17 16:33 | PN ---
Date of Progress Note: 10/17/2024 Subjective: The patient was admitted with urosepsis. The patient to undergo cardiac cath yesterday. The patient had acute kidney injury. Kidney function recovered, but yesterday after the cardiac cath kidney function bounced back. Physical Examination: Vital Signs: Blood pressure 118/58, pulse of 76, afebrile. Chest: Clear to auscultation. Heart: S1, S2 regular. Abdomen: Soft nontender. Extremities: No edema. Neurologic: Alert. No focality. Laboratory Data: Hemoglobin 7.9. Sodium 138, potassium 4.3, bicarb 25, BUN 26, creatinine 1.5, calcium 8.3, magnesium 1.8, phosphorus 3.2. Current Medications: The patient on, it include midodrine, Bactrim, levofloxacin. Lovenox, carvedilol. Assessment And Plan: 1. Acute kidney injury secondary to toxic acute tubular necrosis and currently possible component of contrast induced nephropathy plus possible secondary to Bactrim use as started on the . I am going to start the patient on gentle hydration and we will follow up the patient. 2. Hypertension, controlled. Optimal. Continue current treatment. Agree with midodrine. 3. Urinary tract infection, multi-bacteria, E. coli, MRSA. Continue current antibiotic. We will follow up with primary. Time spent examining the patient [id number] reviewing data lab and the radiology placing order placing documentation discussing the case with the nursing staff hospitalist more than 55 minutes PRINCE Voice ID: [id number] Report ID: [id number] CAITLIN
[2024-10-17] MEDS: Meropenem 500 MG in NA CHLORIDE 0.9% 100 ML IV SCH (17:27)
--- NOTE | 2024-10-17 22:04 | P.PN ---
Date of Service: 10/17/24 Subjective: Sitting in the chair, worked with physical therapy Family has decided on SNF placement for rehab no new complaints Monitoring kidney function s/p LHC ROS: 10 point ROS as noted above, otherwise negative Physical exam GEN: AAO x 3, NAD HEENT: Normal conjunctiva, sclera anicteric CV: RRR, S1 S2 present Pulm: nonlabored breathing, on RA ABD: active bowel sounds MSK: No joint tenderness Integumentary: No rashes Neuro: Normal speech, normal affect Vitals reviewed Assessment: Septic shock secondary to pyelonephritis Gram-negative bacteremia Metabolic encephalopathy secondary to above Anemia Hypertension Acute kidney injury Moderate right hydronephrosis and hydroureter Diabetes mellitus type 2insulin-dependent with noncompliance, hyperglycemia NSTEMI Complex multivessel CAD Plan: Septic shock secondary to pyelonephritis Gram-negative bacteremia Metabolic encephalopathy secondary to above Acute kidney injury Moderate right hydronephrosis and hydroureter Blood cultures obtained in ED, preliminarily positive with all 4 bottles gram- negative rods s/p persistent hypotension secondary to septic shock Restarted Merrem, continue bactrim Will need 10 days of IV merrem to complete antibiotic course Monitor renal function- improved, nephrology consulted and following CT head negative for acute findings Repeat renal ultrasound reports "No hydronephrosis or suspicious parenchymal abnormalities. Questionable 5 mm calculus at the left lower pole." Repeat blood cultures a.m. 10/12-no growth to date Small bump in creatinine, will continue to monitor s/p C Anemia 1 units packed red blood cell transfused 10/12/2024 Stopped heparin drip H/H 7.12/19 Continue to monitor status post heart cath iron studies with mildly decreased iron Hypertension -Coreg 3.125 mg BID -midodrine PRN but not used once off Levophed Diabetes mellitus type 2insulin-dependent with noncompliance, hyperglycemia Weaned off of insulin drip Renal/carb consistent diet, Continue full liquids Sliding scale insulin and semglee added NSTEMI Complex multivessel CAD Stop heparin drip d/t anemia repeat troponin 767, cardiology agree with stopping heparin gtt 10/12 Likely to need coronary angiogram prior to discharge when more stable Echocardiogram shows LVEF of 45 to 50% with mild global hypokinesis and grade 1 diastolic dysfunction Per cardiology, will discharge and follow-up outpatient for further consultation concerning high risk PCI versus CABG DVT PPX: Lovenox Code status: Full code Dispo: SNF Time Spent Managing Pts Care (In Minutes): 42
[2024-10-18 06:37] VITALS: BMI 28.8
[2024-10-18 06:44] LABS: Hematocrit 23.3 % (36.0-45.0); Hemoglobin 7.6 g/dL (12.0-15.0); MCH 28.4 pg (27.0-35.0); MCHC 32.7 g/dL (32.0-36.0); MCV 86.9 fL (80-100); MPV 7.3 fL (7.6-11.3); RBC Red Blood Cell Count 2.68 M/uL (3.86-4.86); White Blood Count 13.40 thou/uL (4.3-10.9)
[2024-10-18 07:02] LABS: ALT/SGPT 17.0 U/L (13-56); AST/SGOT 15.0 U/L (15-37); Albumin 1.9 g/dL (3.4-5.0); Albumin/Globulin Ratio 0.5 (1.1-1.8); Alkaline Phosphatase 195.0 U/L (45-117); Anion Gap 8.4 mEq/L (5.0-15.0); BUN Blood Urea Nitrogen 24.0 mg/dL (7-18); Globulin 4.2 g/dL (2.3-3.5); Glucose Level 79.0 mg/dL (74-106); Magnesium 1.9 mg/dL (1.6-2.4); Potassium 4.4 mEq/L (3.5-5.1)
[2024-10-18] MEDS: AMINO ACIDS/PROTEIN HYDROLYS 30 ML LIQUID.PKT PO SCH (09:00)
--- NOTE | 2024-10-18 12:42 | P.PN ---
Subjective Date of Service: 10/18/24 Chief Complaint: Pyelonephritis , foot Diabetic ulcer Subjective: Tolerating diet, Improving Review of Systems Respiratory: Unremarkable Cardiovascular: Unremarkable Gastrointestinal: Unremarkable Musculoskeletal: As per HPI Integumentary: As per HPI Physical Examination - Vital Signs Temperature: 97.8 F Blood Pressure: 139/60 Pulse: 69 Respirations: 18 Pulse Ox (%): 94 - Physical Exam General: Alert, In no apparent distress, Oriented x3, Cooperative HEENT: PERRLA, EOMI Neck: Supple Gastrointestinal: Soft and benign Integumentary: Diabetic ulcer (LEft foot , no cellulitis.) - Studies Medications List Reviewed: Yes Assessment And Plan - Plan after discharge, f/u at wound healing center for foot ulcer
--- NOTE | 2024-10-18 19:30 | P.PN ---
Date of Service: 10/18/24 Subjective: Again sitting in the chair this morning, smiling and good conversation Will discharge home with home health Awaiting home antibiotics set up ROS: 10 point ROS as noted above, otherwise negative Physical exam GEN: AAO x 3, NAD HEENT: Normal conjunctiva, sclera anicteric CV: Normal sinus rhythm Pulm: Clear BBS on RA ABD: active bowel sounds, soft on palpation MSK: No joint tenderness Integumentary: No rashes Neuro: Normal speech, normal affect Vitals reviewed Assessment: Septic shock secondary to pyelonephritis Gram-negative bacteremia Metabolic encephalopathy secondary to above Anemia Hypertension Acute kidney injury Moderate right hydronephrosis and hydroureter Diabetes mellitus type 2insulin-dependent with noncompliance, hyperglycemia NSTEMI Complex multivessel CAD Plan: Septic shock secondary to pyelonephritis Gram-negative bacteremia Metabolic encephalopathy secondary to above Acute kidney injury Moderate right hydronephrosis and hydroureter Blood cultures obtained in ED, preliminarily positive with all 4 bottles gram- negative rods s/p persistent hypotension secondary to septic shock Restarted Merrem, continue bactrim Will need 10 days of IV merrem to complete antibiotic course Monitor renal function- improved, nephrology consulted and following CT head negative for acute findings Repeat renal ultrasound reports "No hydronephrosis or suspicious parenchymal abnormalities. Questionable 5 mm calculus at the left lower pole." Repeat blood cultures a.m. 10/12-no growth to date Creatinine 1.7, will continue to monitor in a.m. Anemia 1 units packed red blood cell transfused 10/12/2024 Lovenox H/H 7.6/23.3 Continue to monitor status post heart cath iron studies with mildly decreased iron Hypertension -Coreg 3.125 mg BID -midodrine PRN but not used once off Levophed - Blood pressure in good control Diabetes mellitus type 2insulin-dependent with noncompliance, hyperglycemia Weaned off of insulin drip Renal/carb consistent diet, Continue full liquids Sliding scale insulin and semglee added NSTEMI Complex multivessel CAD Stop heparin drip d/t anemia repeat troponin 767, cardiology agree with stopping heparin gtt 10/12 Likely to need coronary angiogram prior to discharge when more stable Echocardiogram shows LVEF of 45 to 50% with mild global hypokinesis and grade 1 diastolic dysfunction Per cardiology, will discharge and follow-up outpatient for further consultation concerning high risk PCI versus CABG DVT PPX: Lovenox Code status: Full code Dispo: Home with home health and antibiotic Time Spent Managing Pts Care (In Minutes): 36
[2024-10-19] MEDS: LACTULOSE 20 GM/30 ML UCUP PO PRN (10:52)
[2024-10-19 11:33] LABS: Albumin 2.0 g/dL (3.4-5.0); Anion Gap 8.0 mEq/L (5.0-15.0); BUN Blood Urea Nitrogen 26.0 mg/dL (7-18); Glucose Level 140.0 mg/dL (74-106); Potassium 5.0 mEq/L (3.5-5.1)
--- NOTE | 2024-10-19 13:33 | P.CNS ---
Date of Consult: 10/19/24 reason for consult: ESBL bacteremia and pyelonephritis HPI: 69 yrs old Female with past medical history of diabetes, presente d to the ER with fever 102 and generalized weakness which has been going on for the last 3 days per family. Family states she had also developed confusion, nausea and vomiting. Denies any chest pain or shortness of breath. Also complains of abdominal discomfort and constipation. Pt was found to have E coli bacteremia secondary to E coli in urine. Family report patient is doing much better and more alert. Denied any fever today. wbc 13.4 today. pt is on bactrim and merrem. denied NVD Allergies avocado Allergy (Mild, Verified 01/06/15 11:38) Itching/Hives/Rash No Known Allergies Allergy (Uncoded 04/18/16 06:57) Unknown Current Medications Acetaminophen (Acetaminophen 325 Mg Tablet) 650 mg PO Q4HP PRN PRN Reason: Pain scale 2-4 (Mild) Amino Acids (Amino Acids/Protein Hydrolys 30 Ml Liquid.Pkt) 30 ml PO BID [facility] Last Admin: 10/19/24 09:00 Dose: 30 ml Aspirin (Aspirin 81 Mg Chewable Tablet) 81 mg PO DAILY [facility] Last Admin: 10/19/24 09:21 Dose: 81 mg Carvedilol (Carvedilol 6.25 Mg Tab) 6.25 mg PO BID [facility] Last Admin: 10/19/24 09:20 Dose: 6.25 mg Clopidogrel Bisulfate (Clopidogrel 75 Mg Tablet) 75 mg PO DAILY [facility] Last Admin: 10/19/24 09:20 Dose: 75 mg Collagenase (Collagenase 30 Gm Ointment) 1 appl TOP DAILY [facility] Last Admin: 10/19/24 09:21 Dose: 1 appl Docusate Sodium (Docusate Na 100 Mg Cap) 100 mg PO DAILY PRN PRN Reason: CONSTIPATION Last Admin: 10/18/24 09:08 Dose: 100 mg Enoxaparin Sodium (Enoxaparin 30 Mg/0.3 Ml) 30 mg SQ DAILY 5 PM [facility] Last Admin: 10/18/24 17:36 Dose: 30 mg Glucagon (Glucagon 1 Mg/Vial) 1 mg IM 1X PRN PRN Reason: HYPOGLYCEMIA Dextrose (Dextrose 10% Water Iv Soln.) 125 mls @ 0 mls/hr IV PRN PRN; Protocol PRN Reason: HYPOGLYCEMIA Sodium Chloride (Sodium Chloride) 250 mls @ 0 mls/hr IV .Q0M AGUSTINA Sodium Chloride (Ns 1000 Ml Ivbag) 1,000 mls @ 50 mls/hr IV .Q20H [facility] Last Admin: 10/19/24 05:38 Dose: 1,000 mls Meropenem 500 mg/ Sodium (Chloride) 100 mls @ 200 mls/hr IV Q12H [facility] Stop: 10/29/24 18:01 Last Admin: 10/19/24 05:38 Dose: 100 mls Insulin Glargine (Insulin Glargine 100 Unit/Ml) 35 unit SQ DAILY [facility] Last Admin: 10/19/24 09:21 Dose: 35 unit Insulin Human Regular (Insulin Regular (Human) 100 Unit/Ml) 0 unit SQ ACHS [facility]; Protocol Last Admin: 10/19/24 11:30 Dose: Not Given Lactulose (Lactulose 20 Gm/30 Ml Ucup) 30 gm PO Q6H PRN PRN Reason: CONSTIPATION Last Admin: 10/19/24 10:52 Dose: 30 gm Midodrine (Midodrine Hcl 5 Mg Tablet) 5 mg PO TID PRN PRN Reason: sbp <100 Ondansetron HCl (Ondansetron 4 Mg/2 Ml Vial) 4 mg IV Q6HP PRN PRN Reason: NAUSEA / VOMITING Last Admin: 10/11/24 08:07 Dose: 4 mg Pantoprazole Sodium (Pantoprazole 40mg Tablet) 40 mg PO ACB [facility]; Protocol Last Admin: 10/19/24 09:20 Dose: 40 mg Trimethoprim/Sulfamethoxazole (Smz./Tmp. 800/160 Mg Tablet) 1 tab PO BID [facility]; Protocol Stop: 10/20/24 09:01 Last Admin: 10/19/24 09:20 Dose: 1 tab - Past Medical/Surgical History Diabetic: Yes Past Medical History: Reviewed- Non-Contributory -: DM -: HTN Past Surgical History: Reviewed- Non-Contributory -: Cholecystectomy -: C section - Social History Smoking Status: Never smoker Alcohol use: No CD- Drugs: No Caffeine use: Yes Review of Systems 10-point ROS is reviewed and neg except constipation objective Temp Pulse Resp BP Pulse Ox 98.1 F 73 18 142/67 H 96 10/19/24 12:00 10/19/24 12:00 10/19/24 12:00 10/19/24 12:00 10/19/24 12:00 - Physical Exam General: Alert and oriented x 3, multiple family at bedside with patient. 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 10/09/24 22:00 Clean Catch Urine - Final Escherichia Coli 10/09/24 22:05 Blood - Blood Aerobic Blood Culture - Final Escherichia Coli 10/09/24 22:05 Blood - Blood Blood Culture Gram Stain - Final 10/09/24 22:05 Blood - Blood Anaerobic Blood Culture - Final Escherichia Coli 10/09/24 22:05 Blood - Blood Gram Stain - Final 10/09/24 21:49 Blood - Blood Aerobic Blood Culture - Final Escherichia Coli 10/09/24 21:49 Blood - Blood Blood Culture Gram Stain - Final 10/09/24 21:49 Blood - Blood Anaerobic Blood Culture - Final Escherichia Coli 10/09/24 21:49 Blood - Blood Gram Stain - Final Labs Asssessment and planning 1. Septic shock secondary to pyelonephritis 2. Ecoli bacteremia 3. Left plantar diabetic foot ulcer 4. Acute kidney injury 5. anemia 6. DM2 hyperglycemia e coli bacteremia likely secondary to urine. repeat blood culture neg on 10/12. echo is negative for IE. urine culture growing e coli. continue merrem x 10 days. tentative stop date oct 27 wound culture grew e coli, strep. agal, and MRSA on 10/10. repeat wound culture 10/12 show no wbc/organism seen. mixed skin ambrocio. Dr islas said wound is likely colonized. No bone exposed, fibrin present, no cellulitis. Can treat with bactrim x 7 days. tentative stop date 10/22. continue wound care per Dr Islas's order. recommend patient to f/u at wound healing center thank you for consult case discussed with Dr Aranda
[2024-10-19] MEDS: BISACODYL 10 MG RECTAL SUPP PR ONE (18:56)
--- NOTE | 2024-10-19 19:32 | RAD REPORT ---
EXAMINATION: [place] Protocol CLINICAL INDICATION: Abdominal pain. Hydronephrosis TECHNIQUE: CT abdomen and pelvis was performed, without IV contrast, as per department protocol. Oral contrast not given. Axial, sagittal and coronal reconstructions were obtained. One or more of the following dose reduction techniques were used: Automated exposure control, adjustment of the mA and k V according to the patient size, and iterative reconstruction. Unless otherwise specified, incidental findings do not require dedicated imaging follow-up. COMPARISON: October 12, 2024 ultrasound. September 09, 2024 CT [address] April 2024 [address] lumbar spine FINDINGS: The lack of intravenous and oral contrast limits the sensitivity of this exam for evaluation of solid visceral organs, vascular structures, and bowel Mild right hydronephrosis. Right ureter is mildly dilated. A ureteral calculus is not seen. Bladder i s mildly distended. Prominent calcifications are present throughout each kidney. Most of these are vascular. There probab ly is one or 2 calculi in each kidney measuring about 2 mm. No calculi within the renal pelvis. No left hydronephrosis A left ureteral calculus not seen. Cholecystectomy. Small bilateral pleural effusions with basilar atelectasis. 2 cm right adrenal mass Hounsfield unit 6 unchanged from 2019 with an adenoma. No follow-up imaging r ecommended. Liver, spleen, pancreas and right adrenal grossly normal No evidence of diverticulitis.. No adnexal mass Cement has been placed into old vertebral fractures T12 and L1. Old mild to moderate compression fracture L3. Mild to moderate subacute compression fracture L2 vertebral body has progressed since April 2024.. It is unchanged from October 09, 2024. No significant retropulsion of bone into the spinal canal. The compression fractures estimated to be 25% Moderate to large amount of stool throughout the colon. Diffuse edema throughout the subcutaneous tissues. Prominent spondylosis L5-S1 IMPRESSION: Mild right hydronephrosis and right hydroureter without visualization of an obstructing calculus. Mild to moderate subacute compression fracture L2 vertebral body Moderate to marked amount of stool throughout the colon Prominent calcifications within the kidneys are mostly vascular. There may be one or 2 small renal ca lculi in each kidney which are nonobstructing
--- NOTE | 2024-10-19 19:33 | P.PN ---
Date of Service: 10/19/24 Subjective: Family continues to change their mind concerning a SNF for rehab Patient sitting in the chair and in good spirits, much improved Creatinine climbing status post dye use during heart cath ROS: 10 point ROS as noted above, otherwise negative Physical exam GEN: Alert and oriented x 3, afebrile, conversing well HEENT: Normal conjunctiva, sclera anicteric CV: Normal sinus rhythm, NSR Pulm: On room air, nonlabored breathing ABD: active bowel sounds, soft on palpation Integumentary: No rashes Neuro: Normal speech, normal affect Vitals reviewed Assessment: Septic shock secondary to pyelonephritis Gram-negative bacteremia Metabolic encephalopathy secondary to above Anemia Hypertension Acute kidney injury Moderate right hydronephrosis and hydroureter Diabetes mellitus type 2insulin-dependent with noncompliance, hyperglycemia NSTEMI Complex multivessel CAD Plan: Septic shock secondary to pyelonephritis Gram-negative bacteremia Metabolic encephalopathy secondary to above Acute kidney injury Moderate right hydronephrosis and hydroureter Blood cultures obtained in ED, preliminarily positive with all 4 bottles gram- negative rods s/p persistent hypotension secondary to septic shock Restarted Merrem, continue bactrim Will need 10 days of IV merrem to complete antibiotic course Monitor renal function- improved, nephrology consulted and following CT head negative for acute findings Repeat renal ultrasound reports "No hydronephrosis or suspicious parenchymal abnormalities. Questionable 5 mm calculus at the left lower pole." Repeat blood cultures a.m. 10/12-no growth to date Creatinine 1.7, will continue to monitor in a.m. Anemia 1 units packed red blood cell transfused 10/12/2024 Lovenox H/H 7.6/23.3 Continue to monitor status post heart cath iron studies with mildly decreased iron Hypertension -Continue Coreg 3.125 mg BID -Hold midodrine PRN but not used once off Levophed - Blood pressure in good control Diabetes mellitus type 2insulin-dependent with noncompliance, hyperglycemia Weaned off of insulin drip Renal/carb consistent diet, Continue full liquids Sliding scale insulin and semglee added NSTEMI Complex multivessel CAD Stop heparin drip d/t anemia repeat troponin 767, cardiology agree with stopping heparin gtt 10/12 Likely to need coronary angiogram prior to discharge when more stable Echocardiogram shows LVEF of 45 to 50% with mild global hypokinesis and grade 1 diastolic dysfunction Per cardiology, will discharge and follow-up outpatient for further consultation concerning high risk PCI versus CABG DVT PPX: Lovenox Code status: Full code Dispo: Home with home health and antibiotic Time Spent Managing Pts Care (In Minutes): 35
--- NOTE | 2024-10-20 00:04 | PN ---
Date of Progress Note: 10/19/2024 Chief Complaint: Acute kidney injury, urosepsis, coronary artery disease. Subjective: The patient underwent cardiac catheterization and was started on Mucomyst. She was on I V fluids for acute kidney injury and renal function is gradually improving. Review of Systems: Denies chest pain, palpitation. Physical Examination: Lungs: Clear to auscultation bilaterally. Heart: S1, S2. Abdomen: Soft. Extremities: No edema. Impression And Plan: 1. Acute kidney injury secondary to acute tubular necrosis and prerenal azotemia. The patient has hi story of urinary tract infection due to E coli and MRSA. The patient is on antibiotics. Avoid nephr otoxic medication. 2. Hypertensive heart and kidney disease. Monitor blood pressure closely. Blood pressure is optimal . The patient is on midodrine. 3. Urosepsis. The patient was weaned off Levophed. Monitor blood pressure and adjust antibiotic acc ording to culture results and sensitivity. 4. Status post cardiac catheterization. The patient was started on Mucomyst and received IV fluids. Avoid nephrotoxic medication and monitor renal function closely. EB/MODL Voice ID: [id number] Report ID: [id number]
[2024-10-20 06:37] LABS: Absolute Lymphocytes (CBC) 1.1 K/uL (0.7-4.9); Hematocrit 21.6 % (36.0-45.0); Hemoglobin 7.0 g/dL (12.0-15.0); MCH 28.7 pg (27.0-35.0); MCHC 32.4 g/dL (32.0-36.0); MCV 88.4 fL (80-100); MPV 7.1 fL (7.6-11.3); Nucleated RBC Absolute Count 0.0 (0-0); Nucleated Red Blood Cells % 0.0 % (0-0); RBC Red Blood Cell Count 2.44 M/uL (3.86-4.86); White Blood Count 11.70 thou/uL (4.3-10.9)
[2024-10-20 07:01] LABS: Albumin 2.0 g/dL (3.4-5.0); Anion Gap 7.6 mEq/L (5.0-15.0); BUN Blood Urea Nitrogen 26.0 mg/dL (7-18); Glucose Level 79.0 mg/dL (74-106); Potassium 4.6 mEq/L (3.5-5.1)
[2024-10-20 08:02] LABS: Absolute Lymphocytes (CBC) 1.1 K/uL (0.7-4.9); Hematocrit 21.5 % (36.0-45.0); Hemoglobin 7.0 g/dL (12.0-15.0); MCH 28.9 pg (27.0-35.0); MCHC 32.7 g/dL (32.0-36.0); MCV 88.2 fL (80-100); MPV 7.0 fL (7.6-11.3); Nucleated RBC Absolute Count 0.0 (0-0); Nucleated Red Blood Cells % 0.0 % (0-0); RBC Red Blood Cell Count 2.43 M/uL (3.86-4.86); White Blood Count 11.80 thou/uL (4.3-10.9)
--- NOTE | 2024-10-20 10:41 | P.CNS ---
Date of Consult: 10/20/24 Reason for Consult: End-stage renal disease of fluid management electrolyte imbalance Chief Complaint: Pyelonephritis , foot Diabetic ulcer History of Present Illness: 82-year-old gentleman who was recently admitted to the hospital with end-stage renal disease. Patient had presented with pneumonia and clinically declined during the hospital stay. We started him on hemodialysis as renal function deteriorated. Patient had chronic kidney disease stage 5 and he progressed end- stage renal disease after his admission. We started him on hemodialysis and he has been doing fairly well. Patient did have anemia and was transfused 2 units of packed red blood cells. A day before discharge at talked to the patient's daughter and she is worried they get frequent infections. I checked a urinalysis as well as chest x-ray prior to discharge. chest x-ray showed improvement in the infiltrates. Urinalysis showed white blood cells and bacteria so I went ahead and continue patient on the Levaquin but added cefdinir. Patient does hemodialysis on Fridays. He apparently started having some nausea and vomiting if patient was sent into the emergency room. EMS stated that he did have a fever and when patient [place] [id number]. The patient is in good spirits. He is answering my questions appropriately. He remembers at the halfway got worried because of his nausea and vomiting. He feels better and will repeat labs and check a UA with microscopy as well as blood cultures and a chest x-ray once again. Patient remains on hemodialysis and will consult Nephrology. Patient will be admitted for observation. Allergies avocado Allergy (Mild, Verified 01/06/15 11:38) Itching/Hives/Rash No Known Allergies Allergy (Uncoded 04/18/16 06:57) Unknown Home medications list reviewed: Yes Home Medications: Insulin Glargine Human [Lantus*] 35 unit SQ DAILY 06/04/12 Insulin Aspart [Novolog Flexpen] 12 unit SQ BIDWM 10/10/14 Rosuvastatin [Crestor*] 10 mg PO DAILY 10/11/24 - Past Medical/Surgical History Diabetic: Yes -: DM -: HTN -: hyperlipidemia -: Cholecystectomy -: C section - Social History Smoking Status: Unknown if ever smoked Alcohol use: No CD- Drugs: No Caffeine use: Yes Place of Residence: Home Review of Systems 10-point ROS is otherwise unremarkable General: Fever Physical Examination Temp Pulse Resp BP Pulse Ox 97.8 F 63 16 140/83 96 10/20/24 08:00 10/20/24 08:00 10/20/24 08:00 10/20/24 08:00 10/20/24 08:00 General: Oriented x3 HEENT: Atraumatic Neck: Supple, 2+ carotid pulse no bruit, No LAD Respiratory: Clear to auscultation bilaterally Cardiovascular: No edema, Normal S1 S2, Systolic murmur Capillary refill: <2 Seconds Gastrointestinal: Normal bowel sounds, Soft and benign, Non-distended, No ascites Musculoskeletal: No clubbing, No swelling Neurological: Normal gait, Normal strength at 5/5 x4 extr, Cranial nerves 3-12 intact, Normal reflexes 2+ Laboratory Tests 10/09/24 10/09/24 10/09/24 21:43 21:49 21:49 WBC 18.30 H RBC 3.03 L Hgb 8.6 L Hct 26.5 L MCV 87.2 MCH 28.4 MCHC 32.6 RDW 15.2 Plt Count 452 H MPV 8.3 Neutrophils % 95.4 H Lymphocytes % 1.9 L Monocytes % 2.6 L Eosinophils % 0.0 Basophils % 0.1 Absolute Neutrophils 17.5 H Segmented Neutrophils 56 Band Neutrophils 35 H Absolute Lymphocytes 0.4 L Lymphocytes 2 L Monocytes 1 Absolute Monocytes 0.5 Absolute Eosinophils 0.0 Absolute Basophils 0.0 Metamyelocytes 5 H Myelocytes 1 H Platelet Estimate Adeq Morphology Comment Not seen PT INR APTT Sodium 129 L Potassium 3.7 Chloride 96 L Carbon Dioxide 21 Anion Gap 15.7 H BUN 65 H Creatinine 3.61 H Est GFR (CKD-EPI) 13 L Glucose 420 H* POC Glucose 413 H* Lactic Acid Lactic Acid F/U @ 2Hr Calcium 10.0 Total Bilirubin 0.3 AST 18 ALT 15 Alkaline Phosphatase 148 H Troponin I High Sens 725.7 H* NT-Pro-B Natriuret Pep 95275 H Serum Total Protein 7.9 Albumin 2.7 L Globulin 5.2 H Albumin/Globulin Ratio 0.5 L Urine Color Urine Clarity Urine pH Ur Specific [place] Glucose (UA)(Auto) Urine Ketones Urine Blood Urine Nitrite Urine Bilirubin Urine Urobilinogen Ur Leukocyte Esterase Urine RBC Urine WBC Urine WBC Clumps Ur Squamous Epith Cells U Non-Squamous Epi Cells Ur Transition Epith Cell Ur Renal Epithelial Cell Urine Bacteria Urine Culture Reflexed Urine Total Protein 10/09/24 10/09/24 10/09/24 21:49 21:49 22:00 WBC RBC Hgb Hct MCV MCH MCHC RDW Plt Count MPV Neutrophils % Lymphocytes % Monocytes % Eosinophils % Basophils % Absolute Neutrophils Segmented Neutrophils Band Neutrophils Absolute Lymphocytes Lymphocytes Monocytes Absolute Monocytes Absolute Eosinophils Absolute Basophils Metamyelocytes Myelocytes Platelet Estimate Morphology Comment PT 14.6 H INR 1.30 APTT 24.4 L Sodium Potassium Chloride Carbon Dioxide Anion Gap BUN Creatinine Est GFR (CKD-EPI) Glucose POC Glucose Lactic Acid 5.7 H* Lactic Acid F/U @ 2Hr Calcium Total Bilirubin AST ALT Alkaline Phosphatase Troponin I High Sens NT-Pro-B Natriuret Pep Serum Total Protein Albumin Globulin Albumin/Globulin Ratio Urine Color Light-yellow Urine Clarity Extremely turbid H Urine pH 5.5 Ur Specific [place] 1.014 Glucose (UA)(Auto) 4+ (over) H Urine Ketones Negative Urine Blood 1+ H Urine Nitrite Negative Urine Bilirubin Negative Urine Urobilinogen Normal Ur Leukocyte Esterase 500 H Urine RBC 5-10 H Urine WBC >50 H Urine WBC Clumps Rare Ur Squamous Epith Cells <5 U Non-Squamous Epi Cells <5 Ur Transition Epith Cell <5 Ur Renal Epithelial Cell <5 Urine Bacteria <20 Urine Culture Reflexed Reflexed Urine Total Protein 2+ H 10/09/24 10/10/24 23:14 01:23 WBC RBC Hgb Hct MCV MCH MCHC RDW Plt Count MPV Neutrophils % Lymphocytes % Monocytes % Eosinophils % Basophils % Absolute Neutrophils Segmented Neutrophils Band Neutrophils Absolute Lymphocytes Lymphocytes Monocytes Absolute Monocytes Absolute Eosinophils Absolute Basophils Metamyelocytes Myelocytes Platelet Estimate Morphology Comment PT INR APTT Sodium Potassium Chloride Carbon Dioxide Anion Gap BUN Creatinine Est GFR (CKD-EPI) Glucose POC Glucose Lactic Acid 3.6 H* Lactic Acid F/U @ 2Hr Reorder Calcium Total Bilirubin AST ALT Alkaline Phosphatase Troponin I High Sens NT-Pro-B Natriuret Pep Serum Total Protein Albumin Globulin Albumin/Globulin Ratio Urine Color Urine Clarity Urine pH Ur Specific [place] Glucose (UA)(Auto) Urine Ketones Urine Blood Urine Nitrite Urine Bilirubin Urine Urobilinogen Ur Leukocyte Esterase Urine RBC Urine WBC Urine WBC Clumps Ur Squamous Epith Cells U Non-Squamous Epi Cells Ur Transition Epith Cell Ur Renal Epithelial Cell Urine Bacteria Urine Culture Reflexed Urine Total Protein Conclusions/Impression: 1. end-stage renal disease, dialysis dependent. I am going to continue dialysis Tuesday, Tuesday, Tuesday, and we will monitor. As patient missed dialysis yesterday we will go to dialysis today Giving the presence of unknown fever with leukocytosis we will send for culture from the [facility] We will dose the patient with single dose of vancomycin We will follow-up with the patient 2. Hypertension, controlled, optimal. 3. Secondary hyperparathyroidism. Discontinue all binder. I will start the patient on potassium phosphate and we will follow up the patient. 4. Failure to thrive. Continue current treatment. 5. Anemia of chronic kidney disease. Start KARIN and we will follow up. 6-fever unknown source CT negative for any pneumonia no UTI will send for culture of from the permacath will dose the patient with single dose of vancomycin will follow-up with the primary 7. Hyponatremia secondary to renal failure will be corrected with the dialysis no need for current treatment Time spent examining the patient [id number] reviewing data lab and the radiology placing orders or discussing the case with the patient discussing the case with the business team leader including nursing staff hemodialysis nurse and hospitalist more than 75-minute
[2024-10-20] MEDS: FUROSEMIDE 20 MG/ 2ML VIAL IV ONE (18:38)
--- NOTE | 2024-10-20 18:40 | P.PN ---
Date of Service: 10/20/24 Subjective: Awake and feeling well no new complaint Plan for SNF placement ROS: 10 point ROS as noted above, otherwise negative Physical exam GEN: AAO x3 HEENT: Normal conjunctiva, sclera anicteric CV: RRR, S1 S2 present Pulm: On room air, symmetrical chest wall ABD: active bowel sounds, soft on palpation Integumentary: No rashes Neuro: Normal speech, normal affect Vitals reviewed Assessment: Septic shock secondary to pyelonephritis Gram-negative bacteremia Metabolic encephalopathy secondary to above Anemia Hypertension Acute kidney injury Moderate right hydronephrosis and hydroureter Diabetes mellitus type 2insulin-dependent with noncompliance, hyperglycemia NSTEMI Complex multivessel CAD Plan: Septic shock secondary to pyelonephritis Gram-negative bacteremia Metabolic encephalopathy secondary to above Acute kidney injury Moderate right hydronephrosis and hydroureter Blood cultures obtained in ED, preliminarily positive with all 4 bottles gram- negative rods s/p persistent hypotension secondary to septic shock Restarted Merrem, continue bactrim Will need 10 days of IV merrem to complete antibiotic course Monitor renal function- improved, nephrology consulted and following CT head negative for acute findings Repeat renal ultrasound reports "No hydronephrosis or suspicious parenchymal abnormalities. Questionable 5 mm calculus at the left lower pole." Repeat blood cultures a.m. 10/12-no growth to date Creatinine 1.7, will continue to monitor in a.m. Anemia 1 units packed red blood cell transfused 10/12/2024 Lovenox H/H 7.0/21.5, recheck 6.9/20.8- ordered one unit PRBC 10/20/24 Continue to monitor status post heart cath iron studies with mildly decreased iron Hypertension Continue Coreg 3.125 mg BID Hold midodrine PRN but not used once off Levophed Blood pressure in good control Diabetes mellitus type 2insulin-dependent with noncompliance, hyperglycemia Weaned off of insulin drip Renal/carb consistent diet, Continue full liquids Sliding scale insulin and semglee added NSTEMI Complex multivessel CAD Stop heparin drip d/t anemia repeat troponin 767, cardiology agree with stopping heparin gtt 10/12 Likely to need coronary angiogram prior to discharge when more stable Echocardiogram shows LVEF of 45 to 50% with mild global hypokinesis and grade 1 diastolic dysfunction Per cardiology, will discharge and follow-up outpatient for further consultation concerning high risk PCI versus CABG DVT PPX: Lovenox Code status: Full code Dispo: Home with home health and antibiotic Time Spent Managing Pts Care (In Minutes): 32
[2024-10-20] MEDS: DOCUSATE NA 100 MG CAP PO SCH (18:47)
[2024-10-20] MEDS: TAMSULOSIN 0.4 MG SR CAP PO SCH (21:53)
[2024-10-20] MEDS: NA CHLORIDE 0.9% 250 ML IV SCH (22:47)
[2024-10-21] MEDS: FUROSEMIDE 20 MG/ 2ML VIAL IV ONE (02:25)
[2024-10-21 05:25] LABS: Absolute Lymphocytes (CBC) 1.1 K/uL (0.7-4.9); Hematocrit 24.0 % (36.0-45.0); Hemoglobin 7.9 g/dL (12.0-15.0); MCH 27.1 pg (27.0-35.0); MCHC 32.9 g/dL (32.0-36.0); MCV 82.5 fL (80-100); MPV 7.1 fL (7.6-11.3); Nucleated RBC Absolute Count 0.0 (0-0); Nucleated Red Blood Cells % 0.0 % (0-0); RBC Red Blood Cell Count 2.91 M/uL (3.86-4.86); White Blood Count 11.50 thou/uL (4.3-10.9)
[2024-10-21 08:21] LABS: Anisocytosis 2+; Blood Morphology Comment NOTED (NOT SEEN); White Blood Cell Scan OK (OK)
[2024-10-21] MEDS ORDERED: DOCUSATE NA 100 MG CAP PO PRN (11:29)
--- NOTE | 2024-10-21 14:34 | P.PN ---
Date of Service: 10/21/24 Subjective: Eating breakfast, Blood sugar 51 this morning, holding semglee for now No new complaints Awaiting placement ROS: 10 point ROS as noted above, otherwise negative Physical exam GEN: Alert and oriented x3 HEENT: Normal conjunctiva, sclera anicteric CV: NSR, S1 S2 present Pulm: On room air, symmetrical chest wall ABD: active bowel sounds, soft on palpation Neuro: Normal speech, normal affect Vitals reviewed Assessment: Septic shock secondary to pyelonephritis Gram-negative bacteremia Metabolic encephalopathy secondary to above Anemia Hypertension Acute kidney injury Moderate right hydronephrosis and hydroureter Diabetes mellitus type 2insulin-dependent with noncompliance, hyperglycemia NSTEMI Complex multivessel CAD Plan: Septic shock secondary to pyelonephritis Gram-negative bacteremia Metabolic encephalopathy secondary to above Acute kidney injury Moderate right hydronephrosis and hydroureter Blood cultures obtained in ED, preliminarily positive with all 4 bottles gram- negative rods s/p persistent hypotension secondary to septic shock Continue Merrem to end Oct 27, completed bactrim Monitor renal function- improved, nephrology consulted and following CT head negative for acute findings Repeat renal ultrasound reports "No hydronephrosis or suspicious parenchymal abnormalities. Questionable 5 mm calculus at the left lower pole." Repeat blood cultures a.m. 10/12-no growth to date Creatinine 1.8, will continue to monitor in a.m. Anemia 1 units packed red blood cell transfused 10/12/2024 Lovenox H/H 7.0/21.5, recheck 6.9/20.8- ordered one unit PRBC 10/20/24, Repeat H/H 7.9, will continue to monitor closely Continue to monitor status post heart cath iron studies with mildly decreased iron Hypertension Continue Coreg 3.125 mg BID Hold midodrine PRN but not used once off Levophed Blood pressure in good control Diabetes mellitus type 2insulin-dependent with noncompliance, hyperglycemia Weaned off of insulin drip Renal/carb consistent diet, Continue full liquids Sliding scale insulin and semglee added NSTEMI Complex multivessel CAD Stop heparin drip d/t anemia repeat troponin 767, cardiology agree with stopping heparin gtt 10/12 Likely to need coronary angiogram prior to discharge when more stable Echocardiogram shows LVEF of 45 to 50% with mild global hypokinesis and grade 1 diastolic dysfunction Per cardiology, will discharge and follow-up outpatient for further consultation concerning high risk PCI versus CABG DVT PPX: Lovenox Code status: Full code Dispo: Home with home health and antibiotic Time Spent Managing Pts Care (In Minutes): 36
[2024-10-22 05:10] LABS: Absolute Lymphocytes (CBC) 1.2 K/uL (0.7-4.9); Hematocrit 23.5 % (36.0-45.0); Hemoglobin 7.9 g/dL (12.0-15.0); MCH 27.9 pg (27.0-35.0); MCHC 33.7 g/dL (32.0-36.0); MCV 82.7 fL (80-100); MPV 7.3 fL (7.6-11.3); Nucleated RBC Absolute Count 0.0 (0-0); Nucleated Red Blood Cells % 0.0 % (0-0); RBC Red Blood Cell Count 2.85 M/uL (3.86-4.86); White Blood Count 10.30 thou/uL (4.3-10.9)
--- NOTE | 2024-10-22 09:53 | P.PN ---
Date of Service: 10/22/24 Subjective: Subjective: No new complaints Awaiting placement ROS: 10 point ROS as noted above, otherwise negative Physical exam GEN: Alert and oriented x3 HEENT: Normal conjunctiva, sclera anicteric CV: NSR, S1 S2 present Pulm: On room air, symmetrical chest wall ABD: active bowel sounds, soft on palpation Neuro: Normal speech, normal affect Vitals reviewed Assessment: Septic shock secondary to pyelonephritis Gram-negative bacteremia Metabolic encephalopathy secondary to above Iron deficient anemia Hypertension Acute kidney injury Moderate right hydronephrosis and hydroureter Diabetes mellitus type 2insulin-dependent with noncompliance, hyperglycemia NSTEMI Complex multivessel CAD Plan: Septic shock secondary to pyelonephritis Gram-negative bacteremia Metabolic encephalopathy secondary to above Acute kidney injury Moderate right hydronephrosis and hydroureter Blood cultures obtained in ED, preliminarily positive with all 4 bottles gram- negative rods s/p persistent hypotension secondary to septic shock Continue Merrem to end Oct 27, completed bactrim Monitor renal function- improved, nephrology consulted and following CT head negative for acute findings Repeat renal ultrasound reports "No hydronephrosis or suspicious parenchymal abnormalities. Questionable 5 mm calculus at the left lower pole." Repeat blood cultures a.m. 10/12-no growth to date Iron deficient anemia anemia 1 units packed red blood cell transfused 10/12/2024 Lovenox iron studies with mildly decreased iron Hypertension Continue Coreg 3.125 mg BID Hold midodrine PRN but not used once off Levophed Blood pressure in good control Diabetes mellitus type 2insulin-dependent with noncompliance, hyperglycemia Weaned off of insulin drip Renal/carb consistent diet, Continue full liquids Sliding scale insulin and semglee added NSTEMI Complex multivessel CAD Stop heparin drip d/t anemia repeat troponin 767, cardiology agree with stopping heparin gtt 10/12 Likely to need coronary angiogram prior to discharge when more stable Echocardiogram shows LVEF of 45 to 50% with mild global hypokinesis and grade 1 diastolic dysfunction Per cardiology, will discharge and follow-up outpatient for further consultation concerning high risk PCI versus CABG DVT PPX: Lovenox Code status: Full code Dispo: Home with home health and antibiotic Time Spent Managing Pts Care (In Minutes): 36
[2024-10-22] MEDS ORDERED: POLYETHYL GLY 3350 17 GM/DOSE PO PRN (11:12)
--- NOTE | 2024-10-22 15:40 | P.PN ---
Date of Service: 10/22/24 subjective: Pt report doing well. family at bedside. LBM was 2 days ago. denied abdominal pain, NVD. No fever/chill. tolerating abx objective Temp Pulse Resp BP Pulse Ox 97.4 F 71 16 152/70 H 95 10/22/24 12:00 10/22/24 12:00 10/22/24 12:00 10/22/24 12:00 10/22/24 12:00 - Physical Exam General: Alert and oriented x 3, multiple family at bedside with patient. HEENT: Atraumatic, Normocephalic Neck: Supple Respiratory: Clear to auscultation bilaterally, Normal air movement Cardiovascular: Regular rate/rhythm, Normal S1 S2 Capillary refill: <2 Seconds Gastrointestinal: Soft and benign Musculoskeletal: No clubbing, No swelling Integumentary: diabete ulcer to left plantar foot Microbiology 10/10/24 02:32 Wound - Left Foot Gram Stain - Final 10/10/24 02:32 Wound - Left Foot Culture & Sensitivity - Final Escherichia Coli Streptococcus Agalactiae Grp B Meth Resistant Staph Aureus 10/09/24 22:00 Clean Catch Urine [place] Count - Final >100,000 CFU/ML. 10/09/24 22:00 Clean Catch Urine - Final Escherichia Coli 10/09/24 22:05 Blood - Blood Aerobic Blood Culture - Final Escherichia Coli 10/09/24 22:05 Blood - Blood Blood Culture Gram Stain - Final 10/09/24 22:05 Blood - Blood Anaerobic Blood Culture - Final Escherichia Coli 10/09/24 22:05 Blood - Blood Gram Stain - Final 10/09/24 21:49 Blood - Blood Aerobic Blood Culture - Final Escherichia Coli 10/09/24 21:49 Blood - Blood Blood Culture Gram Stain - Final 10/09/24 21:49 Blood - Blood Anaerobic Blood Culture - Final Escherichia Coli 10/09/24 21:49 Blood - Blood Gram Stain - Final Labs: wbc 10.3, plt count 682, hemoglobin 7.9, bun 26, cr 1.86 Asssessment and planning 1. Septic shock secondary to pyelonephritis 2. Ecoli bacteremia 3. Left plantar diabetic foot ulcer 4. Acute kidney injury 5. iron deficency anemia 6. DM2 hyperglycemia 7. thrombocytosis e coli bacteremia likely secondary to urine. repeat blood culture neg on 10/12. echo is negative for IE. urine culture growing e coli. continue merrem x 10 days. tentative stop date oct 27 wound culture grew e coli, strep. agal, and MRSA on 10/10. repeat wound culture 10/12 show no wbc/organism seen. mixed skin ambrocio. Dr islas said wound is likely colonized. No bone exposed, fibrin present, no cellulitis. completed bactrim x 5 days. continue wound care per Dr Islas's order. recommend patient to f/u with Dr Islas at wound healing center case discussed with Dr Aranda
--- NOTE | 2024-10-22 23:41 | PN ---
Date of Progress Note: 10/22/2024 Chief Complaint: Acute kidney injury. Subjective: The patient developed acute tubular necrosis and prerenal azotemia. During the current hospitalization, she was treated with IV fluids for sepsis, septic shock. She had acute kidney injur y due to hypotension and septic shock. She was found to have pyelonephritis due to E coli and she wa s on antibiotics. Workup showed possible kidney stone, hydronephrosis and she was referred to urolog ist. Renal function has improved during this hospitalization. She underwent cardiac catheterization and was started on Mucomyst and IV fluids prior to the procedure. Review of Systems: Denies chest pain, palpitations. Physical Examination: Lungs: Clear to auscultation bilaterally. Heart: S1, S2. Abdomen: Soft, benign. Extremities: No edema. Impression And Plan: 1. Acute kidney injury secondary to acute tubular necrosis and prerenal azotemia. The patient respon ded to IV fluids. She was found to have severe urinary tract infection, urosepsis, pyelonephritis, a nd hydronephrosis. Continue antibiotics and recommended Urology consultation. 2. Urosepsis. The patient was weaned off Levophed. Blood pressure improved. Continue IV fluids for acute kidney injury. 3. Status post cardiac catheterization. The patient was started on Mucomyst and received IV fluids. Avoid nephrotoxic medication. Monitor renal function. EB/MODL Voice ID: [id number] Report ID: [id number]
--- NOTE | 2024-10-23 11:05 | P.PN ---
Subjective Date of Service: 10/22/24 Chief Complaint: foot Diabetic ulcer Review of Systems General: Weakness Integumentary: As per HPI Physical Examination - Vital Signs Temperature: 98.0 F Blood Pressure: 131/67 Pulse: 77 Respirations: 12 Pulse Ox (%): 94 - Physical Exam General: Alert, In no apparent distress Gastrointestinal: Soft and benign Integumentary: No erythema, No warmth, No cyanosis, Diabetic ulcer (no cellulitis, no crepitus, no fluctuancy) - Studies Medications List Reviewed: Yes Assessment And Plan - Plan Ashley dressing to left foot every other day ( see orders) after discharge, f/u at wound healing center for foot ulcer
--- NOTE | 2024-10-23 12:17 | PN ---
Subjective: The patient lying in bed. Grandson by the bedside. Denies any headache, nausea, vomiti ng, chest pain, abdominal pain, constipation, or diarrhea. Objective: Vital Signs: Temperature 98, pulse 70, respirations 12, blood pressure 131/67. Lungs: Basal crackles. Heart: S1, S2. Regular. Abdomen: Soft, nontender. Bowel sounds present. Extremities: Trace edema. Wound noted. Laboratory Data: Shows WBC 10.3, hemoglobin 7.9, platelets are 682. Chemistry shows BUN of 26, crea tinine 1.8. Blood cultures: E coli from 10/09. Repeat blood cultures on 10/12 are negative. Lef t foot wound cultures grew E coli, Strep agalactiae group B, and MRSA. Patient is currently being treated with meropenem. Assessment And Plan: Sepsis secondary to pyelonephritis. Escherichia coli bacteremia. Left plantar diabetic foot ulcer with poly-organism infection including Escherichia coli, Strep B aga lactiae, and methicillin resistant Staphylococcus aureus, most likely localized wound infection. We will continue meropenem to treat Escherichia coli bacteremia. Acute kidney injury. Iron-deficiency anemia. Diabetes mellitus. Thrombocytosis. Leukocytosis, improved. Anemia of chronic disease. Monitor signs of infection with WBC and fever trends. No other recommendation. NF/MODL Voice ID: [id number] Report ID: [id number]
--- NOTE | 2024-10-23 14:52 | P.PN ---
Date of Service: 10/23/24 Subjective: No new complaints Awaiting placement ROS: 10 point ROS as noted above, otherwise negative Physical exam GEN: Alert and oriented x3 HEENT: Normal conjunctiva, sclera anicteric CV: NSR, S1 S2 present Pulm: On room air, symmetrical chest wall ABD: active bowel sounds, soft on palpation Neuro: Normal speech, normal affect Vitals reviewed Assessment: Septic shock secondary to pyelonephritis Gram-negative bacteremia Metabolic encephalopathy secondary to above Iron deficient anemia Hypertension Acute kidney injury Moderate right hydronephrosis and hydroureter Diabetes mellitus type 2insulin-dependent with noncompliance, hyperglycemia NSTEMI Complex multivessel CAD Plan: Septic shock secondary to pyelonephritis Gram-negative bacteremia Metabolic encephalopathy secondary to above Acute kidney injury Mild right hydronephrosis and hydroureter Blood cultures obtained in ED, preliminarily positive with all 4 bottles gram- negative rods s/p persistent hypotension secondary to septic shock Continue Merrem to end Oct 27, completed bactrim Monitor renal function- improved, nephrology consulted and following CT head negative for acute findings Repeat renal ultrasound reports "No hydronephrosis or suspicious parenchymal abnormalities. Questionable 5 mm calculus at the left lower pole." Repeat blood cultures a.m. 10/12-no growth to date Will need outpatient urology evaluation for mild right hydronephrosis and hydroureter Repeat chemistry in the morning Awaiting SNF Iron deficient anemia anemia 1 units packed red blood cell transfused 10/12/2024 Lovenox iron studies with mildly decreased iron Hypertension Continue Coreg 3.125 mg BID Hold midodrine PRN but not used once off Levophed Blood pressure in good control Diabetes mellitus type 2insulin-dependent with noncompliance, hyperglycemia Weaned off of insulin drip Renal/carb consistent diet, Continue full liquids Sliding scale insulin and semglee added NSTEMI Complex multivessel CAD Echocardiogram shows LVEF of 45 to 50% with mild global hypokinesis and grade 1 diastolic dysfunction S/P LHC Will need to follow-up outpatient for further consultation concerning high risk PCI versus CABG DVT PPX: Lovenox Code status: Full code Dispo: [facility] Time Spent Managing Pts Care (In Minutes): 36
--- NOTE | 2024-10-23 18:35 | P.CNS ---
Date of Consult: 10/23/24 69-year-old woman admitted via the emergency department with gram-negative uroseptic shock associated with pyelonephritis causing SUNNI, metabolic encephalopathy and NSTEMI with multivessel CAD in the setting of hypertension and IDDM 2. She has been managed with IV antimicrobials, and despite adequate antimicrobial therapy, persistent right-sided hydronephrosis has been noted with hydroureter. She denies any known history of recurrent UTI, noting her last symptomatic UTI was about 2 years ago. She denied any dysuria or gross alejandra turia associated with this infection resulting in admission. 10/09/2024 creatinine 3.61 with EGFR 13, lactate 5.7, troponin I 725.7, proBNP 10,233 Urine culture revealed E. coli resistant to Bactrim and ampicillin Blood cultures x 2 also E. coli resistant to Bactrim plus ampicillin but intermediate to cefazolin and Unasyn 10/10/2024 troponin I increased to 1774.6 then to 2396.9 10/20/2024 creatinine 1.86 with EGFR 29 10/22/2024 WBC 10.3, hemoglobin 10.9, platelets 682 post 2 units PRBCs 10/09/2024 CT abdomen and pelvis revealed right-sided hydronephrosis. 10/19/2024 CT abdomen and pelvis impression: Mild right hydronephrosis and right hydroureter without visualization of an obstructing calculus. Mild to moderate subacute compression fracture L2 vertebral body. Moderate to marked amount of stool throughout the colon. Prominent calcifications within the kidneys are mostly vascular. There may be 1 or 2 small renal calculi in each kidney which are nonobstructing. -I reviewed the images of the CT scan in detail, and agree with the finding of mild pelviectasis without significant caliectasis and mild to moderate ureteral dilation down to the level of the UPJ. Bladder markedly distended. Examination: Alert, awake and in no acute distress No dyspnea or sign of respiratory distress Comfortable resting in the hospital bed with grandson at bedside who assisted with some Yemeni translation Cardiac catheterization revealed multivessel CAD Echocardiography on this admission: LVEF 45 to 50% with grade 1 diastolic dysfunction Assessment and recommendation: 69-year-old woman with hypertension and IDDM 2 admitted emergently with gram- negative uroseptic shock associated with pyelonephritis and SUNNI, metabolic encephalopathy, and NSTEMI with multivessel CAD with persistent mild right hy dronephrosis and SUNNI despite over 10 days of adequate antimicrobial therapy, likely secondary to chronic cystitis contributing to UPJ obstruction, but with distended bladder seen on CT. -Place urethral Mosqueda catheter to decompress the bladder in preparation for repeat a.m. labs -Recommend repeat CBC and BMP in the a.m. -if persistent SUNNI observed, intervention likely required/beneficial to improve the SUNNI, but this is only if the benefits of undergoing operative intervention outweigh the risks of further cardiac decompensation associated with any anesthesia provided. -I counseled the patient and her grandson that options for management of her obstruction included placement of a percutaneous nephrostomy tube versus operative cystoscopy with right ureteral stent placement. I explained that a percutaneous nephrostomy tube could be placed under local anesthesia, which would avoid the need for more systemic anesthesia that could result in cardiac compromise, but would require transfer to the [facility] where an interventional radiologist would place the tube. Alternatively, endoscopic management of the obstruction via cystoscopy with placement of a stent could be performed, but I explained the stent was a foreign body that must be removed within 6 months to decrease the risk of complication like source of chronic infection or encrustation of the stent. - N.p.o. after midnight with the exception of clear liquids until patient is called for the OR if persistent SUNNI observed - I discussed with Dr. Wolff, who will consider the risk-benefit ratio with Dr. Dawson tomorrow morning relative to potential surgical intervention cystoscopy with right ureteral stent placement.
[2024-10-24 04:06] LABS: Absolute Lymphocytes (CBC) 1.3 K/uL (0.7-4.9); Hematocrit 24.0 % (36.0-45.0); Hemoglobin 7.9 g/dL (12.0-15.0); MCH 27.5 pg (27.0-35.0); MCHC 32.9 g/dL (32.0-36.0); MCV 83.6 fL (80-100); MPV 6.9 fL (7.6-11.3); Nucleated RBC Absolute Count 0.0 (0-0); Nucleated Red Blood Cells % 0.0 % (0-0); RBC Red Blood Cell Count 2.87 M/uL (3.86-4.86); White Blood Count 7.50 thou/uL (4.3-10.9)
[2024-10-24 04:17] LABS: Albumin 2.0 g/dL (3.4-5.0); Anion Gap 7.6 mEq/L (5.0-15.0); BUN Blood Urea Nitrogen 32.0 mg/dL (7-18); Glucose Level 152.0 mg/dL (74-106); Potassium 5.6 mEq/L (3.5-5.1)
--- NOTE | 2024-10-24 14:09 | P.PN ---
Date of Service: 10/24/24 subjective: Pt report doing well. family at bedside. LBM was 2 days ago. denied abdominal pain, NVD. No fever/chill. tolerating abx objective Temp Pulse Resp BP Pulse Ox 97.8 F 77 20 132/63 96 10/24/24 12:00 10/24/24 12:00 10/24/24 12:00 10/24/24 12:00 10/24/24 12:00 - Physical Exam General: Alert and oriented x 3, multiple family at bedside with patient. HEENT: Atraumatic, Normocephalic Neck: Supple Respiratory: Clear to auscultation bilaterally, Normal air movement Cardiovascular: Regular rate/rhythm, Normal S1 S2 Capillary refill: <2 Seconds Gastrointestinal: Soft and benign Musculoskeletal: No clubbing, No swelling Integumentary: diabete ulcer to left plantar foot Microbiology 10/10/24 02:32 Wound - Left Foot Gram Stain - Final 10/10/24 02:32 Wound - Left Foot Culture & Sensitivity - Final Escherichia Coli Streptococcus Agalactiae Grp B Meth Resistant Staph Aureus 10/09/24 22:00 Clean Catch Urine [place] Count - Final >100,000 CFU/ML. 10/09/24 22:00 Clean Catch Urine - Final Escherichia Coli 10/09/24 22:05 Blood - Blood Aerobic Blood Culture - Final Escherichia Coli 10/09/24 22:05 Blood - Blood Blood Culture Gram Stain - Final 10/09/24 22:05 Blood - Blood Anaerobic Blood Culture - Final Escherichia Coli 10/09/24 22:05 Blood - Blood Gram Stain - Final 10/09/24 21:49 Blood - Blood Aerobic Blood Culture - Final Escherichia Coli 10/09/24 21:49 Blood - Blood Blood Culture Gram Stain - Final 10/09/24 21:49 Blood - Blood Anaerobic Blood Culture - Final Escherichia Coli 10/09/24 21:49 Blood - Blood Gram Stain - Final Labs: wbc 7.5, plt count 680, hemoglobin 7.9, bun 32, cr 1.47 Asssessment and planning 1. Septic shock secondary to pyelonephritis 2. Ecoli bacteremia 3. Left plantar diabetic foot ulcer 4. Acute kidney injury 5. iron deficency anemia 6. DM2 hyperglycemia 7. thrombocytosis e coli bacteremia likely secondary to urine. repeat blood culture neg on 10/12. echo is negative for IE. urine culture growing e coli. continue merrem x 10 days. tentative stop date oct 27 wound culture grew e coli, strep. agal, and MRSA on 10/10. repeat wound culture 10/12 show no wbc/organism seen. mixed skin ambrocio. Dr islas said wound is likely colonized. No bone exposed, fibrin present, no cellulitis. completed bactrim x 5 days. continue wound care per Dr Islas's order. recommend patient to f/u with Dr Islas at wound healing center case discussed with Dr Aranda
--- NOTE | 2024-10-24 15:23 | P.PN ---
Date of Service: 10/24/24 Subjective: No new complaints Awaiting placement Krause placed, cr improving ROS: 10 point ROS as noted above, otherwise negative Physical exam GEN: Alert and oriented x3 HEENT: Normal conjunctiva, sclera anicteric CV: NSR, S1 S2 present Pulm: On room air, symmetrical chest wall ABD: active bowel sounds, soft on palpation, krause in place Neuro: Normal speech, normal affect Vitals reviewed Assessment: Septic shock secondary to pyelonephritis Gram-negative bacteremia Metabolic encephalopathy secondary to above Iron deficient anemia Hypertension Acute kidney injury Moderate right hydronephrosis and hydroureter Diabetes mellitus type 2insulin-dependent with noncompliance, hyperglycemia NSTEMI Complex multivessel CAD Plan: Septic shock secondary to pyelonephritis Gram-negative bacteremia Metabolic encephalopathy secondary to above Acute kidney injury Mild right hydronephrosis and hydroureter Blood cultures obtained in ED, preliminarily positive with all 4 bottles gram- negative rods s/p persistent hypotension secondary to septic shock Continue Merrem to end Oct 27, completed bactrim Monitor renal function- improved, nephrology consulted and following CT head negative for acute findings Repeat renal ultrasound reports "No hydronephrosis or suspicious parenchymal abnormalities. Questionable 5 mm calculus at the left lower pole." Repeat blood cultures a.m. 10/12-no growth to date Will need outpatient urology evaluation for mild right hydronephrosis and hydroureter krause placed 10/23 evening consider repeat renal US 10/26 Repeat chemistry in the morning Awaiting SNF Iron deficient anemia anemia 1 units packed red blood cell transfused 10/12/2024 Lovenox iron studies with mildly decreased iron Hypertension Continue Coreg 3.125 mg BID Hold midodrine PRN but not used once off Levophed Blood pressure in good control Diabetes mellitus type 2insulin-dependent with noncompliance, hyperglycemia Weaned off of insulin drip Renal/carb consistent diet, Continue full liquids Sliding scale insulin and semglee added NSTEMI Complex multivessel CAD Echocardiogram shows LVEF of 45 to 50% with mild global hypokinesis and grade 1 diastolic dysfunction S/P LHC Will need to follow-up outpatient for further consultation concerning high risk PCI versus CABG DVT PPX: Lovenox Code status: Full code Dispo: [facility] Time Spent Managing Pts Care (In Minutes): 36
[2024-10-25 04:37] LABS: Albumin 2.0 g/dL (3.4-5.0); Anion Gap 6.3 mEq/L (5.0-15.0); BUN Blood Urea Nitrogen 29.0 mg/dL (7-18); Glucose Level 162.0 mg/dL (74-106); Potassium 5.3 mEq/L (3.5-5.1)
--- NOTE | 2024-10-25 15:22 | P.PN ---
Date of Service: 10/25/24 Subjective: No new complaints Awaiting placement Krause placed, cr improving plan for repeat renal US in AM ROS: 10 point ROS as noted above, otherwise negative Physical exam GEN: Alert and oriented x3 HEENT: Normal conjunctiva, sclera anicteric CV: NSR, S1 S2 present Pulm: On room air, symmetrical chest wall ABD: active bowel sounds, soft on palpation, krause in place Neuro: Normal speech, normal affect Vitals reviewed Assessment: Septic shock secondary to pyelonephritis Gram-negative bacteremia Metabolic encephalopathy secondary to above Iron deficient anemia Hypertension Acute kidney injury Moderate right hydronephrosis and hydroureter Diabetes mellitus type 2insulin-dependent with noncompliance, hyperglycemia NSTEMI Complex multivessel CAD Plan: Septic shock secondary to pyelonephritis Gram-negative bacteremia Metabolic encephalopathy secondary to above Acute kidney injury Mild right hydronephrosis and hydroureter Blood cultures obtained in ED, preliminarily positive with all 4 bottles gram- negative rods s/p persistent hypotension secondary to septic shock Continue Merrem to end Oct 27, completed bactrim Monitor renal function- improved, nephrology consulted and following CT head negative for acute findings Repeat renal ultrasound reports "No hydronephrosis or suspicious parenchymal abnormalities. Questionable 5 mm calculus at the left lower pole." Repeat blood cultures a.m. 10/12-no growth to date Will need outpatient urology evaluation for mild right hydronephrosis and hydroureter krause placed 10/23 evening repeat renal US 10/26 Voiding trial if no hydro noted on ultrasound Repeat chemistry in the morning Awaiting SNF Iron deficient anemia anemia 1 units packed red blood cell transfused 10/12/2024 Lovenox iron studies with mildly decreased iron Hypertension Continue Coreg 3.125 mg BID Hold midodrine PRN but not used once off Levophed Blood pressure in good control Diabetes mellitus type 2insulin-dependent with noncompliance, hyperglycemia Weaned off of insulin drip Renal/carb consistent diet, Continue full liquids Sliding scale insulin and semglee added NSTEMI Complex multivessel CAD Echocardiogram shows LVEF of 45 to 50% with mild global hypokinesis and grade 1 diastolic dysfunction S/P LHC Will need to follow-up outpatient for further consultation concerning high risk PCI versus CABG DVT PPX: Lovenox Code status: Full code Dispo: SNF Time Spent Managing Pts Care (In Minutes): 36
--- NOTE | 2024-10-25 21:23 | PN ---
Subjective: The patient is lying in bed. No new acute event. Chart reviewed. Grandson by the beds norma. Denies any headache, nausea, vomiting, chest pain, abdominal pain, constipation, or diarrhea. Objective: Vital Signs: Temperature 98, pulse 74, respirations 18, blood pressure 145/85. Lungs: Basal crackles. Heart: S1, S2. Regular. Abdomen: Soft, nontender. Bowel sounds present. Extremities: Trace edema. Left foot wound noted. Assessment And Plan: 1. The patient currently on meropenem. Blood and urine cultures are growing E coli. Left foot with polymicrobial infection, being treated locally. 2. Septic shock, improving, secondary to pyelonephritis. 3. Escherichia coli bacteremia. 4. Left plantar foot diabetic foot ulcer with polymicrobial infection to be treated locally. 5. Acute kidney injury. 6. Iron-deficiency anemia. 7. Diabetes mellitus. 8. Thrombocytosis. Continue to monitor signs of infection with WBC and fever trends. We will follow the patient closely. NF/MODL Voice ID: [id number] Report ID: [id number]
[2024-10-26 04:21] LABS: Albumin 2.1 g/dL (3.4-5.0); Anion Gap 7.1 mEq/L (5.0-15.0); BUN Blood Urea Nitrogen 29.0 mg/dL (7-18); Glucose Level 141.0 mg/dL (74-106); Potassium 5.1 mEq/L (3.5-5.1)
--- NOTE | 2024-10-26 08:30 | RAD REPORT ---
EXAMINATION: US RENAL CLINICAL INDICATION: Right hydronephrosis TECHNIQUE: Real-time ultrasonography of the kidneys perform ed. COMPARISON: October 19, 2024. FINDINGS: Right kidney measures 11 cm with a normal echotexture.. The right hydronephrosis appears resolved. Left kidney measures 10 cm with normal echotexture. Bladder was not visualized and presumably is contracted. IMPRESSION: Right hydronephrosis appears resolved
--- NOTE | 2024-10-26 14:29 | P.PN ---
Date of Service: 10/26/24 Subjective: No new complaints Awaiting placement ROS: 10 point ROS as noted above, otherwise negative Physical exam GEN: Alert and oriented x3 HEENT: Normal conjunctiva, sclera anicteric CV: NSR, S1 S2 present Pulm: On room air, symmetrical chest wall ABD: active bowel sounds, soft on palpation, krause in place Neuro: Normal speech, normal affect Vitals reviewed Assessment: Septic shock secondary to pyelonephritis Gram-negative bacteremia Metabolic encephalopathy secondary to above Iron deficient anemia Hypertension Acute kidney injury Moderate right hydronephrosis and hydroureter Diabetes mellitus type 2insulin-dependent with noncompliance, hyperglycemia NSTEMI Complex multivessel CAD Plan: Septic shock secondary to pyelonephritis Gram-negative bacteremia Metabolic encephalopathy secondary to above Acute kidney injury Mild right hydronephrosis and hydroureter Blood cultures obtained in ED, preliminarily positive with all 4 bottles gram- negative rods s/p persistent hypotension secondary to septic shock Continue Merrem to end Oct 27, completed bactrim Monitor renal function- improved, nephrology consulted and following CT head negative for acute findings Repeat renal ultrasound reports "No hydronephrosis or suspicious parenchymal abnormalities. Questionable 5 mm calculus at the left lower pole." Repeat blood cultures a.m. 10/12-no growth to date Will need outpatient urology evaluation for mild right hydronephrosis and hydroureter krause placed 10/23 evening repeat renal US 10/26-hydronephrosis resolved Voiding trial today Repeat chemistry in the morning Awaiting SNF Iron deficient anemia anemia 1 units packed red blood cell transfused 10/12/2024 Lovenox iron studies with mildly decreased iron Hypertension Continue Coreg 3.125 mg BID Hold midodrine PRN but not used once off Levophed Blood pressure in good control Diabetes mellitus type 2insulin-dependent with noncompliance, hyperglycemia Weaned off of insulin drip Renal/carb consistent diet, Continue full liquids Sliding scale insulin and semglee added NSTEMI Complex multivessel CAD Echocardiogram shows LVEF of 45 to 50% with mild global hypokinesis and grade 1 diastolic dysfunction S/P LHC Will need to follow-up outpatient for further consultation concerning high risk PCI versus CABG DVT PPX: Lovenox Code status: Full code Dispo: SNF Time Spent Managing Pts Care (In Minutes): 36
--- NOTE | 2024-10-26 15:21 | P.PN ---
Date of Service: 10/26/24 subjective: Pt report doing well. family at bedside. LBM was yesterday. denied abdominal pain, NVD. No fever/chill. tolerating abx objective Temp Pulse Resp BP Pulse Ox 97.5 F 75 16 139/65 94 10/26/24 12:00 10/26/24 12:00 10/26/24 12:00 10/26/24 12:00 10/26/24 12:00 - Physical Exam General: Alert and oriented x 3, multiple family at bedside with patient. HEENT: Atraumatic, Normocephalic Neck: Supple Respiratory: Clear to auscultation bilaterally, Normal air movement Cardiovascular: Regular rate/rhythm, Normal S1 S2 Capillary refill: <2 Seconds Gastrointestinal: Soft and benign Musculoskeletal: No clubbing, No swelling Integumentary: diabete ulcer to left plantar foot Microbiology 10/10/24 02:32 Wound - Left Foot Gram Stain - Final 10/10/24 02:32 Wound - Left Foot Culture & Sensitivity - Final Escherichia Coli Streptococcus Agalactiae Grp B Meth Resistant Staph Aureus 10/09/24 22:00 Clean Catch Urine [place] Count - Final >100,000 CFU/ML. 10/09/24 22:00 Clean Catch Urine - Final Escherichia Coli 10/09/24 22:05 Blood - Blood Aerobic Blood Culture - Final Escherichia Coli 10/09/24 22:05 Blood - Blood Blood Culture Gram Stain - Final 10/09/24 22:05 Blood - Blood Anaerobic Blood Culture - Final Escherichia Coli 10/09/24 22:05 Blood - Blood Gram Stain - Final 10/09/24 21:49 Blood - Blood Aerobic Blood Culture - Final Escherichia Coli 10/09/24 21:49 Blood - Blood Blood Culture Gram Stain - Final 10/09/24 21:49 Blood - Blood Anaerobic Blood Culture - Final Escherichia Coli 10/09/24 21:49 Blood - Blood Gram Stain - Final Labs: wbc 7.5, plt count 680, hemoglobin 7.9, bun 32, cr 1.47 Asssessment and planning 1. Septic shock secondary to pyelonephritis 2. Ecoli bacteremia 3. Left plantar diabetic foot ulcer 4. Acute kidney injury 5. iron deficency anemia 6. DM2 hyperglycemia 7. thrombocytosis e coli bacteremia likely secondary to urine. repeat blood culture neg on 10/12. echo is negative for IE. urine culture growing e coli. continue merrem x 10 days. tentative stop date oct 27 wound culture grew e coli, strep. agal, and MRSA on 10/10. repeat wound culture 10/12 show no wbc/organism seen. mixed skin ambrocio. Dr islas said wound is likely colonized. No bone exposed, fibrin present, no cellulitis. completed bactrim x 5 days. continue wound care per Dr Islas's order. recommend patient to f/u with Dr Islas at wound healing center case discussed with Dr Aranda
--- NOTE | 2024-10-26 22:29 | PN ---
Date of Progress Note: 10/26/2024 Chief Complaint: Acute kidney injury on chronic kidney disease, stage 3. Subjective: The patient developed prerenal azotemia and acute tubular necrosis. During this hospita lization, she was admitted to ICU with sepsis and septic shock. Renal function was declining and the patient was started on IV fluids. She was found to have pyelonephritis due to E coli and she was st arted on antibiotics and workup was initiated to rule out kidney stone. The patient was found to hav e hydronephrosis and questionable kidney stone. The patient is to follow up with urologist. Review of Systems: Denies chest pain, palpitations. Physical Examination: Lungs: Clear to auscultation bilaterally. Heart: S1, S2. Abdomen: Soft. Extremities: No edema. Impression And Plan: 1. Acute kidney injury due to acute tubular necrosis and prerenal azotemia. The patient responded to IV fluids, although the patient needs to follow up with urologist. Urosepsis, pyelonephritis, hydro nephrosis. The patient was treated with antibiotics. 2. Urosepsis. The patient was weaned off Levophed. Blood pressure is stable. Continue IV fluids fo r acute kidney injury. Monitor p.o. intake. 3. Status post cardiac catheterization. Mucomyst was started and the patient received IV fluids prior to cardiac catheterization and IV contrast exposure. EB/MODL Voice ID: [id number] Report ID: [id number]
[2024-10-27] MEDS: AMLODIPINE 5 MG TAB PO ONE (01:32)
[2024-10-27 06:27] LABS: Albumin 2.2 g/dL (3.4-5.0); Anion Gap 5.2 mEq/L (5.0-15.0); BUN Blood Urea Nitrogen 28.0 mg/dL (7-18); Glucose Level 156.0 mg/dL (74-106); Potassium 5.2 mEq/L (3.5-5.1)
--- NOTE | 2024-10-27 16:06 | P.PN ---
Date of Service: 10/27/24 Subjective: No new complaints Awaiting placement Working well with physical therapy, family at bedside Voiding without difficulty after Krause removed ROS: 10 point ROS as noted above, otherwise negative Physical exam GEN: Alert and oriented x3 HEENT: Normal conjunctiva, sclera anicteric CV: NSR, S1 S2 present Pulm: On room air, symmetrical chest wall ABD: active bowel sounds, soft on palpation Neuro: Normal speech, normal affect Vitals reviewed Assessment: Septic shock secondary to pyelonephritis Gram-negative bacteremia Metabolic encephalopathy secondary to above Iron deficient anemia Hypertension Acute kidney injury Moderate right hydronephrosis and hydroureter Diabetes mellitus type 2insulin-dependent with noncompliance, hyperglycemia NSTEMI Complex multivessel CAD Plan: Septic shock secondary to pyelonephritis Gram-negative bacteremia Metabolic encephalopathy secondary to above Acute kidney injury Mild right hydronephrosis and hydroureter Blood cultures obtained in ED, preliminarily positive with all 4 bottles gram- negative rods s/p persistent hypotension secondary to septic shock Continue Merrem to end Oct 27, completed bactrim Monitor renal function- improved, nephrology consulted and following CT head negative for acute findings Repeat renal ultrasound reports "No hydronephrosis or suspicious parenchymal abnormalities. Questionable 5 mm calculus at the left lower pole." Repeat blood cultures a.m. 10/12-no growth to date Will need outpatient urology evaluation for mild right hydronephrosis and hydroureter krause placed 10/23 evening repeat renal US 10/26-hydronephrosis resolved Voiding trial successful 10/26 Krause catheter removed, voiding freely Repeat chemistry in the morning Awaiting SNF Iron deficient anemia anemia 1 units packed red blood cell transfused 10/12/2024 Lovenox iron studies with mildly decreased iron Hypertension Continue Coreg 3.125 mg BID Hold midodrine PRN but not used once off Levophed Blood pressure in good control Diabetes mellitus type 2insulin-dependent with noncompliance, hyperglycemia Weaned off of insulin drip Renal/carb consistent diet, Continue full liquids Sliding scale insulin and semglee added NSTEMI Complex multivessel CAD Echocardiogram shows LVEF of 45 to 50% with mild global hypokinesis and grade 1 diastolic dysfunction S/P LHC Will need to follow-up outpatient for further consultation concerning high risk PCI versus CABG DVT PPX: Lovenox Code status: Full code Dispo: [facility] Time Spent Managing Pts Care (In Minutes): 36
[2024-10-27] MEDS: ENOXAPARIN 40 MG/0.4 ML SQ SCH (18:23)
[2024-10-28 06:00] LABS: Albumin 2.3 g/dL (3.4-5.0); Anion Gap 6.0 mEq/L (5.0-15.0); BUN Blood Urea Nitrogen 29.0 mg/dL (7-18); Glucose Level 168.0 mg/dL (74-106); Potassium 5.0 mEq/L (3.5-5.1)
--- NOTE | 2024-10-28 08:13 | P.PN ---
Date of Service: 10/28/24 Subjective: No new complaints Awaiting placement Working well with physical therapy, family at bedside Voiding without difficulty after Krause removed Family at bedside, no concerns at this time ROS: 10 point ROS as noted above, otherwise negative Physical exam GEN: Alert and oriented x3 HEENT: Normal conjunctiva, sclera anicteric CV: NSR, S1 S2 present Pulm: On room air, symmetrical chest wall ABD: active bowel sounds, soft on palpation Neuro: Normal speech, normal affect Vitals reviewed Assessment: Septic shock secondary to pyelonephritis Gram-negative bacteremia Metabolic encephalopathy secondary to above Iron deficient anemia Hypertension Acute kidney injury Moderate right hydronephrosis and hydroureter Diabetes mellitus type 2insulin-dependent with noncompliance, hyperglycemia NSTEMI Complex multivessel CAD Plan: Septic shock secondary to pyelonephritis Gram-negative bacteremia Metabolic encephalopathy secondary to above Acute kidney injury Mild right hydronephrosis and hydroureter Blood cultures obtained in ED, preliminarily positive with all 4 bottles gram- negative rods s/p persistent hypotension secondary to septic shock Continue Merrem to end Oct 27, completed bactrim Completed antibiotics Afebrile, no leukocytosis Monitor renal function- improved, nephrology consulted and following CT head negative for acute findings Repeat renal ultrasound reports "No hydronephrosis or suspicious parenchymal abnormalities. Questionable 5 mm calculus at the left lower pole." Repeat blood cultures a.m. 10/12-no growth to date Will need outpatient urology evaluation for mild right hydronephrosis and hydroureter krause placed 10/23 evening repeat renal US 10/26-hydronephrosis resolved Voiding trial successful 10/26 Krause catheter removed, voiding freely Repeat chemistry in the morning Awaiting [facility] Iron deficient anemia anemia 1 units packed red blood cell transfused 10/12/2024 Lovenox iron studies with mildly decreased iron Hypertension Continue Coreg 3.125 mg BID Hold midodrine PRN but not used once off Levophed Blood pressure in good control Diabetes mellitus type 2insulin-dependent with noncompliance, hyperglycemia Weaned off of insulin drip Renal/carb consistent diet, Continue full liquids Sliding scale insulin and semglee added NSTEMI Complex multivessel CAD Echocardiogram shows LVEF of 45 to 50% with mild global hypokinesis and grade 1 diastolic dysfunction S/P LHC Will need to follow-up outpatient for further consultation concerning high risk PCI versus CABG DVT PPX: Lovenox Code status: Full code Dispo: SNF Time Spent Managing Pts Care (In Minutes): 36
--- NOTE | 2024-10-28 09:41 | P.PN ---
Date of Service: 10/28/24 Nephrology Progress Note he patient was admitted with urosepsis. The patient to undergo cardiac cath yesterday. The patient had acute kidney injury. Kidney function recovered, but yesterday after the cardiac cath kidney function bounced back. Physical Examination: Temp Pulse Resp BP Pulse Ox 98.2 F 79 18 159/61 H 95 10/28/24 08:00 10/28/24 08:00 10/28/24 08:00 10/28/24 08:00 10/28/24 08:00 General Patient looking stable no respiratory distress Chest: Clear to auscultation. Heart: S1, S2 regular. Abdomen: Soft nontender. Extremities: No edema. Neurologic: Alert. No focality Acetaminophen (Acetaminophen 325 Mg Tablet) 650 mg PO Q4HP PRN PRN Reason: Pain scale 2-4 (Mild) Amino Acids (Amino Acids/Protein Hydrolys 30 Ml Liquid.Pkt) 30 ml PO BID [facility] Last Admin: 10/27/24 20:00 Dose: 30 ml Aspirin (Aspirin 81 Mg Chewable Tablet) 81 mg PO DAILY [facility] Last Admin: 10/27/24 08:19 Dose: 81 mg Carvedilol (Carvedilol 6.25 Mg Tab) 6.25 mg PO BID [facility] Last Admin: 10/27/24 20:00 Dose: 6.25 mg Clopidogrel Bisulfate (Clopidogrel 75 Mg Tablet) 75 mg PO DAILY [facility] Last Admin: 10/27/24 08:19 Dose: 75 mg Collagenase (Collagenase 30 Gm Ointment) 1 appl TOP DAILY [facility] Last Admin: 10/27/24 09:00 Dose: 1 appl Docusate Sodium (Docusate Na 100 Mg Cap) 100 mg PO DAILY PRN PRN Reason: CONSTIPATION Enoxaparin Sodium (Enoxaparin 40 Mg/0.4 Ml) 40 mg SQ DAILY 5 PM [facility] Last Admin: 10/27/24 18:23 Dose: 40 mg Glucagon (Glucagon 1 Mg/Vial) 1 mg IM 1X PRN PRN Reason: HYPOGLYCEMIA Dextrose (Dextrose 10% Water Iv Soln.) 125 mls @ 0 mls/hr IV PRN PRN; Protocol PRN Reason: HYPOGLYCEMIA Sodium Chloride (Sodium Chloride) 250 mls @ 0 mls/hr IV .Q0M [facility] Meropenem 500 mg/ Sodium (Chloride) 100 mls @ 200 mls/hr IV Q12H [facility] Stop: 10/29/24 18:01 Last Admin: 10/28/24 05:08 Dose: 100 mls Sodium Chloride (Sodium Chloride) 250 mls @ 0 mls/hr IV .Q0M [facility] Last Admin: 10/20/24 22:47 Dose: 250 mls Insulin Human Regular (Insulin Regular (Human) 100 Unit/Ml) 0 unit SQ ACHS [facility]; Protocol Last Admin: 10/27/24 20:00 Dose: 3 unit Lactulose (Lactulose 20 Gm/30 Ml Ucup) 30 gm PO Q6H PRN PRN Reason: CONSTIPATION Last Admin: 10/19/24 10:52 Dose: 30 gm Midodrine (Midodrine Hcl 5 Mg Tablet) 5 mg PO TID PRN PRN Reason: sbp <100 Ondansetron HCl (Ondansetron 4 Mg/2 Ml Vial) 4 mg IV Q6HP PRN PRN Reason: NAUSEA / VOMITING Last Admin: 10/11/24 08:07 Dose: 4 mg Pantoprazole Sodium (Pantoprazole 40mg Tablet) 40 mg PO ACB [facility]; Protocol Last Admin: 10/27/24 08:19 Dose: 40 mg Polyethylene Glycol (Polyethyl Gly 3350 17 Gm/Dose) 17 gm PO DAILY PRN PRN Reason: CONSTIPATION Tamsulosin HCl (Tamsulosin 0.4 Mg Sr Cap) 0.4 mg PO BEDTIME [facility] Last Admin: 10/27/24 20:00 Dose: 0.4 mg Assessment & Plan 1. Acute kidney injury secondary to toxic acute tubular necrosis and currently possible component of contrast induced nephropathy plus possible secondary to Bactrim use/obstructive uropathy persistent hydronephrosis on the right side on the recovery: Continue to monitor the patient Seen by urology as kidney function improve no intervention we will follow-up Continue current antibiotic Will follow-up with the primary Continue the patient on Flomax Follow-up repeated chemistry today 2-obstructive uropathy persists with complicated UTI and septic shock even though kidney function has been improved: Continue current antibiotic Patient seen by urology no intervention giving the fact that kidney function has been improved still patient cannot have a risk of recurrent UTI giving the persistent hydro nephrosis I agree with urology to watch for the time being as high risk cardiac comorbid condition Will continue to monitor 3. Hypertension, controlled. Optimal. Continue current treatment. Agree with midodrine. 4. Hyperkalemia will start Lokelma 5-CAD status post cardiac cath October 15 Follow-up with cardiology Time spent examining the patient [id number] reviewing data lab and the radio logy placing order discussing the case with the patient and family by bedside discussing the case with the steam cleaning machine operator including hospitalist and nursing staff more than 55-minute
--- NOTE | 2024-10-29 14:18 | P.PN ---
Date of Service: 10/29/24 subjective: Pt report doing well. family at bedside. denied abdominal pain, NVD. No fever/chill. tolerating abx objective Temp Pulse Resp BP Pulse Ox 97.8 F 74 16 146/60 H 92 10/29/24 12:00 10/29/24 12:00 10/29/24 12:00 10/29/24 12:00 10/29/24 12:00 - Physical Exam General: Alert and oriented x 3, multiple family at bedside with patient. 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 10/09/24 22:00 Clean Catch Urine - Final Escherichia Coli 10/09/24 22:05 Blood - Blood Aerobic Blood Culture - Final Escherichia Coli 10/09/24 22:05 Blood - Blood Blood Culture Gram Stain - Final 10/09/24 22:05 Blood - Blood Anaerobic Blood Culture - Final Escherichia Coli 10/09/24 22:05 Blood - Blood Gram Stain - Final 10/09/24 21:49 Blood - Blood Aerobic Blood Culture - Final Escherichia Coli 10/09/24 21:49 Blood - Blood Blood Culture Gram Stain - Final 10/09/24 21:49 Blood - Blood Anaerobic Blood Culture - Final Escherichia Coli 10/09/24 21:49 Blood - Blood Gram Stain - Final Labs: wbc 7.5, plt count 680, hemoglobin 7.9, bun 32, cr 1.47 Asssessment and planning 1. Septic shock secondary to pyelonephritis 2. Ecoli bacteremia 3. Left plantar diabetic foot ulcer 4. Acute kidney injury 5. iron deficency anemia 6. DM2 hyperglycemia 7. thrombocytosis e coli bacteremia likely secondary to urine. repeat blood culture neg on 10/12. echo is negative for IE. urine culture growing e coli. completed merrem x 12 days. off of abx wound culture grew e coli, strep. agal, and MRSA on 10/10. repeat wound culture 10/12 show no wbc/organism seen. mixed skin ambrocio. Dr islas said wound is likely colonized. No bone exposed, fibrin present, no cellulitis. completed bactrim x 5 days. continue wound care per Dr Islas's order. recommend patient to f/u with Dr Islas [facility] case discussed with Dr Aranda
--- NOTE | 2024-10-30 03:11 | PN ---
Date of Progress Note: 10/29/2024 Chief Complaint: Urosepsis. Subjective: The patient underwent cardiac catheterization. The patient has history of acute kidney injury secondary to ATN in the setting of urosepsis. Review of Systems: Denies complaints. Physical Examination: Lungs: Clear to auscultation bilaterally. Heart: S1, S2. Abdomen: Soft. Extremities: No edema. Impression And Plan: 1. Hypertension, controlled. Continue current medication. 2. Hyperkalemia. The patient was started on Lokelma. 3. Coronary artery disease, status post cardiac catheterization on October 15. Follow up with Cardiol isha. 4. Hydronephrosis. Urology consultation was recommended. 5. Urinary tract infection. Antibiotics according to the urine culture. 6. Acute kidney injury secondary to toxic acute tubular necrosis. Currently, possible component of c ontrast induced nephropathy and possible secondary to Bactrim use. 7. The patient has obstructive uropathy, persistent hydronephrosis. She will need to follow up with urologist. RACHEAL/ARRON Voice ID: [id number] Report ID: [id number]
[2024-10-30 12:06] VITALS: O2SAT 97
--- NOTE | 2024-10-30 12:27 | P.PN ---
Date of Service: 10/30/24 Nephrology Progress Note he patient was admitted with urosepsis. The patient to undergo cardiac cath yesterday. The patient had acute kidney injury. Kidney function recovered, but yesterday after the cardiac cath kidney function bounced back. Physical Examination: Temp Pulse Resp BP Pulse Ox 97.8 F 83 18 179/65 H 97 10/30/24 08:00 10/30/24 08:00 10/30/24 08:00 10/30/24 08:00 10/30/24 08:00 General Patient looking stable no respiratory distress Chest: Clear to auscultation. Heart: S1, S2 regular. Abdomen: Soft nontender. Extremities: No edema. Neurologic: Alert. No focality Laboratory Last Values WBC 18.30 thou/uL (4.3-10.9) H 10/09/24 21:49 RBC 3.03 M/uL (3.86-4.86) L 10/09/24 21:49 Hgb 8.6 g/dL (12.0-15.0) L 10/09/24 21:49 Hct 26.5 % (36.0-45.0) L 10/09/24 21:49 MCV 87.2 fL (80-100) 10/09/24 21:49 MCH 28.4 pg (27.0-35.0) 10/09/24 21:49 MCHC 32.6 g/dL (32.0-36.0) 10/09/24 21:49 RDW 15.2 % (12.1-15.2) 10/09/24 21:49 Plt Count 452 thou/uL (152-406) H 10/09/24 21:49 MPV 8.3 fL (7.6-11.3) 10/09/24 21:49 Neutrophils % 95.4 % (41.7-73.7) H 10/09/24 21:49 Lymphocytes % 1.9 % (15.3-44.8) L 10/09/24 21:49 Monocytes % 2.6 % (3.3-12.3) L 10/09/24 21:49 Eosinophils % 0.0 % (0-4.4) 10/09/24 21:49 Basophils % 0.1 % (0-1.3) 10/09/24 21:49 Absolute Neutrophils 17.5 K/uL (1.8-8.0) H 10/09/24 21:49 Segmented Neutrophils 56 % (40-80) 10/09/24 21:49 Band Neutrophils 35 % (0-1) H 10/09/24 21:49 Absolute Lymphocytes 0.4 K/uL (0.7-4.9) L 10/09/24 21:49 Lymphocytes 2 % (15-42) L 10/09/24 21:49 Monocytes 1 % (0-10) 10/09/24 21:49 Absolute Monocytes 0.5 K/uL (0.1-1.3) 10/09/24 21:49 Absolute Eosinophils 0.0 K/uL (0-0.5) 10/09/24 21:49 Absolute Basophils 0.0 K/uL (0-0.5) 10/09/24 21:49 Metamyelocytes 5 % (0-0) H 10/09/24 21:49 Myelocytes 1 % (0-0) H 10/09/24 21:49 Platelet Estimate Adeq 10/09/24 21:49 Morphology Comment Not seen (NOT SEEN) 10/09/24 21:49 PT 14.6 SECONDS (10-13.0) H 10/09/24 21:49 INR 1.30 10/09/24 21:49 APTT 24.4 SECONDS (27.2-37.4) L 10/09/24 21:49 Sodium 129 mEq/L (136-145) L 10/09/24 21:49 Potassium 3.7 mEq/L (3.5-5.1) 10/09/24 21:49 Chloride 96 mEq/L (98-107) L 10/09/24 21:49 Carbon Dioxide 21 mEq/L (21-32) 10/09/24 21:49 Anion Gap 15.7 mEq/L (5.0-15.0) H 10/09/24 21:49 BUN 65 mg/dL (7-18) H 10/09/24 21:49 Creatinine 3.61 mg/dL (0.55-1.02) H 10/09/24 21:49 Est GFR (CKD-EPI) 13 ml/min (=/>90) L 10/09/24 21:49 Glucose 420 mg/dL (74-106) H* 10/09/24 21:49 POC Glucose 413 mg/dL (65-120) H* 10/09/24 21:43 Lactic Acid 3.6 mmol/L (0.4-2.0) H* 10/10/24 01:23 Lactic Acid F/U @ 2Hr Reorder 10/09/24 23:14 Calcium 10.0 mg/dL (8.5-10.1) 10/09/24 21:49 Total Bilirubin 0.3 mg/dL (0.2-1.0) 10/09/24 21:49 AST 18 U/L (15-37) 10/09/24 21:49 ALT 15 U/L (13-56) 10/09/24 21:49 Alkaline Phosphatase 148 U/L (45-117) H 10/09/24 21:49 Troponin I High Sens 725.7 pg/mL (<58.9) H* 10/09/24 21:49 NT-Pro-B Natriuret Pep 71202 pg/mL (<125) H 10/09/24 21:49 Serum Total Protein 7.9 g/dL (6.4-8.2) 10/09/24 21:49 Albumin 2.7 g/dL (3.4-5.0) L 10/09/24 21:49 Globulin 5.2 g/dL (2.3-3.5) H 10/09/24 21:49 Albumin/Globulin Ratio 0.5 (1.1-1.8) L 10/09/24 21:49 Urine Color Light-yellow (Yellow) 10/09/24 22:00 Urine Clarity Extremely turbid (Clear) H 10/09/24 22:00 Urine pH 5.5 (5.0-7.0) 10/09/24 22:00 Ur Specific [place] 1.014 (1.005-1.030) 10/09/24 22:00 Glucose (UA)(Auto) 4+ (over) (Negative) H 10/09/24 22:00 Urine Ketones Negative (Negative) 10/09/24 22:00 Urine Blood 1+ (Negative) H 10/09/24 22:00 Urine Nitrite Negative (Negative) 10/09/24 22:00 Urine Bilirubin Negative (Negative) 10/09/24 22:00 Urine Urobilinogen Normal (Normal) 10/09/24 22:00 Ur Leukocyte Esterase 500 Hradeep/uL (Negative) H 10/09/24 22:00 Urine RBC 5-10 /HPF (None Seen) H 10/09/24 22:00 Urine WBC >50 /HPF (<5) H 10/09/24 22:00 Urine WBC Clumps Rare /HPF (None Seen) 10/09/24 22:00 Ur Squamous Epith Cells <5 /HPF (None Seen) 10/09/24 22:00 U Non-Squamous Epi Cells <5 /HPF (None Seen) 10/09/24 22:00 Ur Transition Epith Cell <5 /HPF (None Seen) 10/09/24 22:00 Ur Renal Epithelial Cell <5 /HPF (None Seen) 10/09/24 22:00 Urine Bacteria <20 /HPF (<20) 10/09/24 22:00 Urine Culture Reflexed Reflexed 10/09/24 22:00 Urine Total Protein 2+ (Negative) H 10/09/24 22:00 Acetaminophen (Acetaminophen 325 Mg Tablet) 650 mg PO Q4HP PRN PRN Reason: Pain scale 2-4 (Mild) Amino Acids (Amino Acids/Protein Hydrolys 30 Ml Liquid.Pkt) 30 ml PO BID [facility] Last Admin: 10/30/24 08:46 Dose: 30 ml Aspirin (Aspirin 81 Mg Chewable Tablet) 81 mg PO DAILY [facility] Last Admin: 10/30/24 08:45 Dose: 81 mg Carvedilol (Carvedilol 6.25 Mg Tab) 6.25 mg PO BID [facility] Last Admin: 10/30/24 08:45 Dose: 6.25 mg Clopidogrel Bisulfate (Clopidogrel 75 Mg Tablet) 75 mg PO DAILY [facility] Last Admin: 10/30/24 08:44 Dose: 75 mg Collagenase (Collagenase 30 Gm Ointment) 1 appl TOP DAILY [facility] Last Admin: 10/30/24 08:50 Dose: 1 appl Docusate Sodium (Docusate Na 100 Mg Cap) 100 mg PO DAILY PRN PRN Reason: CONSTIPATION Enoxaparin Sodium (Enoxaparin 40 Mg/0.4 Ml) 40 mg SQ DAILY 5 PM [facility] Last Admin: 10/29/24 17:00 Dose: 40 mg Glucagon (Glucagon 1 Mg/Vial) 1 mg IM 1X PRN PRN Reason: HYPOGLYCEMIA Dextrose (Dextrose 10% Water Iv Soln.) 125 mls @ 0 mls/hr IV PRN PRN; Protocol PRN Reason: HYPOGLYCEMIA Sodium Chloride (Sodium Chloride) 250 mls @ 0 mls/hr IV .Q0M [facility] Sodium Chloride (Sodium Chloride) 250 mls @ 0 mls/hr IV .Q0M [facility] Last Admin: 10/20/24 22:47 Dose: 250 mls Insulin Human Regular (Insulin Regular (Human) 100 Unit/Ml) 0 unit SQ ACHS [facility]; Protocol Last Admin: 10/30/24 11:30 Dose: Not Given Lactulose (Lactulose 20 Gm/30 Ml Ucup) 30 gm PO Q6H PRN PRN Reason: CONSTIPATION Last Admin: 10/19/24 10:52 Dose: 30 gm Midodrine (Midodrine Hcl 5 Mg Tablet) 5 mg PO TID PRN PRN Reason: sbp <100 Ondansetron HCl (Ondansetron 4 Mg/2 Ml Vial) 4 mg IV Q6HP PRN PRN Reason: NAUSEA / VOMITING Last Admin: 10/11/24 08:07 Dose: 4 mg Pantoprazole Sodium (Pantoprazole 40mg Tablet) 40 mg PO ACB [facility]; Protocol Last Admin: 10/30/24 08:45 Dose: 40 mg Polyethylene Glycol (Polyethyl Gly 3350 17 Gm/Dose) 17 gm PO DAILY PRN PRN Reason: CONSTIPATION Tamsulosin HCl (Tamsulosin 0.4 Mg Sr Cap) 0.4 mg PO BEDTIME [facility] Last Admin: 10/29/24 20:42 Dose: 0.4 mg Assessment & Plan 1. Acute kidney injury secondary to toxic acute tubular necrosis and currently possible component of contrast induced nephropathy plus possible secondary to Bactrim use/obstructive uropathy persistent hydronephrosis on the right side on the recovery: Continue to monitor the patient Seen by urology as kidney function improve no intervention we will follow-up Continue current antibiotic Will follow-up with the primary Continue the patient on Flomax Follow-up repeated chemistry today 2-obstructive uropathy persists with complicated UTI and septic shock even though kidney function has been improved: Continue current antibiotic Patient seen by urology no intervention giving the fact that kidney function has been improved still patient cannot have a risk of recurrent UTI giving the persistent hydro nephrosis I agree with urology to watch for the time being as high risk cardiac comorbid condition Will continue to monitor 3. Hypertension, controlled. Optimal. Continue current treatment. Agree with midodrine. 4. Hyperkalemia will start Lokelma 5-CAD status post cardiac cath October 15 Follow-up with cardiology Time spent examining the patient [id number] reviewing data lab and the r adiology placing order discussing the case with the patient and family by bedside discussing the case with the steam plant control room operator including hospitalist and nursing staff more than 55-minute
--- NOTE | 2024-10-30 13:00 | P.DS ---
Admission Date: 10/10/24 Discharge Date: 10/30/24 Disposition: DC HOME/HOME HEALTH CARE Discharge Condition: GOOD Reason for Admission: foot Diabetic ulcer Brief History of Present Illness: Diagnosis Septic shock secondary to pyelonephritis Gram-negative bacteremia Metabolic encephalopathy secondary to above Iron deficient anemia Hypertension Acute kidney injury Moderate right hydronephrosis and hydroureter Diabetes mellitus type 2insulin-dependent with noncompliance, hyperglycemia NSTEMI Complex multivessel CAD HPI 10/10/24 69 yrs old Female with past medical history of diabetes, hypertension, hyperlipidemia who presented to the ER with fever and chills and generalized weakness which has been going on for the last 3 days and has been progressively getting worse. Associated with intractable nausea and vomiting. Denies any chest pain or shortness of breath. Also complains of abdominal discomfort and constipation. Patient is a poor historian hence most of the history is obtained from the chart review and also talking to the ER physician and family member at the bedside. Complains of bilateral flank pain as well. Denies any chest discomfort.. Patient was assessed in the ER and is admitted for further management of pyelonephritis, metabolic acidosis, septic shock, and NSTEMI Hospital Course: Patient was admitted to the hospital initially for septic shock with pyelonephritis, was found to have gram-negative bacteremia with CT showing moderate right hydronephrosis and hydroureter without obstructive findings. Blood cultures on admission were positive for E. coli, wound cultures had E. coli, strep and MRSA. She completed treatment with Merrem and Bactrim. Repeat blood cultures were obtained on 10/12, she received a total of over 2 weeks of IV meropenem during her hospitalization. She has remained afebrile. Additionally her troponin was elevated on admission, it peaked at 2396.9. Once patient was stabilized she was brought to the [facility]. Coronary angiogram showed normal left main, LAD with heavily calcified artery with 70% disease then mid to distal mild luminal irregularities. Left circumflex showed a calcified artery with diffuse disease mid to distal 70% disease mild OM1 disease, OM 2 with proximal 90% disease, OM 3 with diffuse 99% disease, RCA heavily calcified artery with 70% disease distally 90% disease before bifurcation. Cardiology recommends medical management at this point with trial of aspirin Plavix and then outpatient evaluation for high risk PCI versus CABG depending on conditioning. In regards to the right sided hydronephrosis and hydroureter with acute kidney injury she was evaluated by urology who was considering placing a ureteral stent, Mosqueda catheter was placed for 48 hours and repeat renal ultrasound was performed which showed resolution of hydronephrosis. Patient underwent a voiding trial after that and was successful in her voiding trial and Mosqueda catheter has now been removed. Patient to follow-up with urology outpatient as well as nephrology. Patient did require a blood transfusion during her hospitalization, hemoglobin has been stable around 7.9, creatinine 1.4 New medications will include Aspirin 81 mg daily Plavix 75 mg daily Carvedilol 6.25 mg twice daily Flomax 0.4 mg at bedtime It is extremely important that patient follows up with cardiology outpatient for evaluation for possible high risk/complex PCI versus CABG She also need to follow-up with her primary care doctor and nephrology in 1 to 2 weeks Additionally she should see urology as well in regards to her hydronephrosis although this has improved Vital Signs/Physical Exam: Temp Pulse Resp BP Pulse Ox 97.8 F 83 18 179/65 H 97 10/30/24 08:00 10/30/24 08:00 10/30/24 08:00 10/30/24 08:00 10/30/24 08:00 Laboratory Data at Discharge: WBC 7.50 thou/uL (4.3-10.9) 10/24/24 03:35 Hgb 7.9 g/dL (12.0-15.0) L 10/24/24 03:35 Hct 24.0 % (36.0-45.0) L 10/24/24 03:35 Plt Count 680 thou/uL (152-406) H 10/24/24 03:35 PT 14.6 SECONDS (10-13.0) H 10/09/24 21:49 INR 1.30 10/09/24 21:49 APTT 46.2 SECONDS (27.2-37.4) H 10/12/24 06:30 Sodium 139 mEq/L (136-145) 10/28/24 05:12 Potassium 5.0 mEq/L (3.5-5.1) 10/28/24 05:12 BUN 29 mg/dL (7-18) H 10/28/24 05:12 Creatinine 1.45 mg/dL (0.55-1.02) H 10/28/24 05:12 Glucose 168 mg/dL (74-106) H 10/28/24 05:12 Phosphorus 3.7 mg/dL (2.5-4.9) 10/28/24 05:12 Magnesium 1.9 mg/dL (1.6-2.4) 10/18/24 05:30 Total Bilirubin 0.3 mg/dL (0.2-1.0) 10/18/24 05:30 AST 15 U/L (15-37) 10/18/24 05:30 ALT 17 U/L (13-56) 10/18/24 05:30 Alkaline Phosphatase 195 U/L (45-117) H 10/18/24 05:30 Triglycerides 221 mg/dL (<150) H 10/10/24 05:44 Cholesterol 105 mg/dL (<200) 10/10/24 05:44 HDL Cholesterol 46 mg/dL (40-60) 10/10/24 05:44 Cholesterol/HDL Ratio 2.28 10/10/24 05:44 Home Medications: Insulin Glargine Human [Lantus*] 35 unit SQ DAILY 06/04/12 Insulin Aspart [Novolog Flexpen] 12 unit SQ BIDWM 10/10/14 Rosuvastatin [Crestor*] 10 mg PO DAILY 10/11/24 Amino Acids/Protein Hydrolys [Prosource No Carb Liquid Pkt] 30 ml PO BID packet 10/28/24 Aspirin Chewable [Aspirin Chewable*] 81 mg PO DAILY tab.chew 10/28/24 Clopidogrel Bisulfate [Plavix*] 75 mg PO DAILY #30 tab 10/28/24 Collagenase [Santyl Ointment*] 1 appl TOP DAILY gm 10/28/24 Docusate [Colace Cap*] 100 mg PO DAILY PRN cap 10/28/24 Tamsulosin [Flomax*] 0.4 mg PO BEDTIME #30 cap 10/28/24 carvediloL [Coreg*] 6.25 mg PO BID #60 tab 10/28/24 New Medications: carvediloL [Coreg*] 6.25 mg PO BID #60 tab Tamsulosin [Flomax*] 0.4 mg PO BEDTIME #30 cap Clopidogrel Bisulfate [Plavix*] 75 mg PO DAILY #30 tab Physician Discharge Instructions: 1. Please call and schedule a follow-up appointment with your PCP in 3-5 days - Please follow-up with your PCP for medication refills/adjustments 2. Please call and schedule a follow-up appointment with Dr. Islas and wound care in 1 week 3 Please call and schedule follow-up appointment with Dr. Niño, urology, in 1 to 2 weeks 4. Please call and schedule follow-up appointment with Dr. Warner, manager management, in 1 to 2 weeks for continued kidney monitoring 5. Please call and schedule follow-up appointment with Dr. Dawson, [employer] charcoal burner for high risk PCI/CABG 6. Continue heart healthy diet 7. activity restrictions fall precautions, work with physical therapy 7. Return to the ED if symptoms worsen Diet: AHA Activity: Fall precautions Followup: Nuzhat Warner MD [ACTIVE - CAN ADMIT] - Kayode Dawson MD [ACTIVE - CAN ADMIT] - Leobardo Islas MD [ACTIVE - CAN ADMIT] - NONE,NONE [UNKNOWN] - Sean Flores [ACTIVE - CAN ADMIT] -
[2024-10-30 13:17] VITALS: BP 152/55; TEMP 98.2
--- NOTE | 2024-10-31 19:32 | PN ---
Date of Progress Note: 10/30/2024 Subjective: The patient being discharged today. The patient lying in bed. No new acute event. Geovanna rt reviewed. Objective: Vital Signs: Reviewed. Lungs: Basal crackles. Heart: S1, S2. Regular. Abdomen: Soft, nontender. Bowel sounds present. Extremity: Trace edema. Laboratory Data: Reviewed. Assessment And Plan: Pyelonephritis, improving. Continue current treatment and supportive care. Mo nitor signs of infection with WBC and fever trends. No further recommendations at this time. NF/MODL Voice ID: [id number] Report ID: [id number]
== END 2024-10-30 14:26 | disposition home health service (06) | DRG 871 ==
LOC: ER 21:34 → ERHOLD 10-10 04:14 → 3RD-ICU 10-10 11:44 → 2ND 10-13 18:14
PROVIDERS: ADMIT Family Medicine; ATTEND Internal Medicine
PROC: 3E033XZ Introduction of Vasopressor into Peripheral Vein, Percutaneous Approach (ICD-10-PCS; principal; 2024-10-10)
PROC: 4A033R1 Measurement of Arterial Saturation, Peripheral, Percutaneous Approach (ICD-10-PCS; 2024-10-10)
PROC: 0T9B70Z Drainage of Bladder with Drainage Device, Via Natural or Artificial Opening (ICD-10-PCS; 2024-10-10)
PROC: 30233N1 Transfusion of Nonautologous Red Blood Cells into Peripheral Vein, Percutaneous Approach (ICD-10-PCS; 2024-10-12)
PROC: B2111ZZ Fluoroscopy of Multiple Coronary Arteries using Low Osmolar Contrast (ICD-10-PCS; 2024-10-16)
PROC: 4A023N7 Measurement of Cardiac Sampling and Pressure, Left Heart, Percutaneous Approach (ICD-10-PCS; 2024-10-16)
DX: A41.51 Sepsis due to Escherichia coli [E. coli] (principal); G93.41 Metabolic encephalopathy; I21.A1 Myocardial infarction type 2; R65.21 Severe sepsis with septic shock; N17.0 Acute kidney failure with tubular necrosis; N18.6 End stage renal disease; E66.2 Morbid (severe) obesity with alveolar hypoventilation; N10 Acute pyelonephritis; E87.20 Acidosis, unspecified; N39.0 Urinary tract infection, site not specified; E87.1 Hypo-osmolality and hyponatremia; I12.0 Hypertensive chronic kidney disease with stage 5 chronic kidney disease or end stage renal disease; N25.81 Secondary hyperparathyroidism of renal origin; E87.5 Hyperkalemia; E11.22 Type 2 diabetes mellitus with diabetic chronic kidney disease; E11.65 Type 2 diabetes mellitus with hyperglycemia; E11.621 Type 2 diabetes mellitus with foot ulcer; L97.529 Non-pressure chronic ulcer of other part of left foot with unspecified severity; D63.1 Anemia in chronic kidney disease; D50.9 Iron deficiency anemia, unspecified; D75.839 Thrombocytosis, unspecified; E78.00 Pure hypercholesterolemia, unspecified; I25.10 Atherosclerotic heart disease of native coronary artery without angina pectoris; T38.3X6A Underdosing of insulin and oral hypoglycemic [antidiabetic] drugs, initial encounter; B95.1 Streptococcus, group B, as the cause of diseases classified elsewhere; B95.62 Methicillin resistant Staphylococcus aureus infection as the cause of diseases classified elsewhere; R62.7 Adult failure to thrive; Z79.4 Long term (current) use of insulin; Z68.28 Body mass index [BMI] 28.0-28.9, adult; Z90.49 Acquired absence of other specified parts of digestive tract; Z91.018 Allergy to other foods; Z91.148 Patient's other noncompliance with medication regimen for other reason; Z91.158 Patient's noncompliance with renal dialysis for other reason
CPT/HCPCS: 36415; 36556; 36600; 51702; 70450; 71045; 74018; 74176; 76377; 76770; 76937; 80048; 80053; 80061; 80069; 80076; 80202; 81001; 82550; 82607; 82728; 82805; 82947; 83036; 83540; 83605; 83615; 83735; 83880; 84100; 84466; 84484; 85014; 85018; 85025; 85027; 85610; 85730; 86850; 86900; 86901; 86920; 86922; 87040; 87070; 87077; 87086; 87088; 87186; 87205; 93005; 93306; 93454; 94760; 97110; 97116; 97161; 97530; 99152; 99153; 99291; 99292; C1893; J0461; J0692; J1171; J1644; J1650; J1815; J1938; J2003; J2185; J2250; J2405; J2470; J3010; J3370; J3475; J3480; J3590; J7030; J7040; J7050; J7060; J7799; P9016; Q9966